=== PATIENT | female | born 1960 | race Caucasian/White ===

== ENCOUNTER → 2024-02-23 15:57 | Outpatient (REF) | payer OTHER, SELFPAY | LOC: RAD 15:57 | PROVIDERS: ATTENDING PHYSICIAN Surgery | DX: N20.0 Calculus of kidney (principal) | CPT/HCPCS: 76775 ==

== ENCOUNTER 2024-08-15 17:05 | Inpatient (IN) | payer OTHER, SELFPAY ==
[2024-08-15] VITALS (16 sets, daily range): BP systolic 107–142; BP diastolic 43–67; BMI 35.4; BMI 35.1
[2024-08-15 12:37] LABS: Urine Albumin 3+ (Neg - Trace); Urine Bilirubin 1+ (Negative); Urine Character Clear (Clear); Urine Color Yellow; Urine Glucose Negative (Negative); Urine Ketone Negative (Negative); Urine Leukocyte 3+ (Negative); Urine Nitrite Negative (Negative); Urine Occult Blood 3+ (Negative); Urine Specific Gravity 1.015 (<1.030); Urine Urobilinogen 2+ (Neg - 1+)
[2024-08-15 13:18] LABS: Urine Bacteria Moderate (Negative); Urine Red Blood Cell 0-2 /HPF (0-2); Urine Squamous Cell 21-25 /LPF (Few); Urine White Cell 50-60 /HPF (0-5)
--- NOTE | 2024-08-15 14:03 | ED.GENMED ---
History of Present Illness
General
Chief Complaint: Fever
Source: patient
Exam Limitations: none
Time Seen by Provider: 08/15/24 13:07
Nursing documentation reviewed up to this point in time: agreed with
History of Present Illness
History of Present Illness:
Patient is a 64-year-old female who presents to the ER for evaluation. Patient had discomfort with urination starting last week and self medicated with Bactrim. She does have a history of kidney stones and was doing a 24-hour urine recently
ordered by . Patient reports over the weekend however since Thursday and Thursday she has been having nausea and vomiting and has not been able to tolerate water. She has had a fever. She took Tylenol yesterday but was unable to take
anything today.
She is unsure if she is emptying her bladder but does complain abdominal bloating.
Review of Systems
Review of Systems
Allergies reviewed?: Yes
All Other Systems: ROS reviewed and negative except as documented in HPI and ROS
Constitutional: Reports fever, fatigue and chills
EENT: Reports no symptoms
Respiratory: Reports no symptoms; Denies cough or trouble breathing
Cardiac: Reports no symptoms
ABD/GI: Reports abdominal pain, nausea and vomiting; Denies diarrhea
: Reports dysuria and urgency; Denies flank pain
Musculoskeletal: Reports no symptoms
Skin: Reports no symptoms
Neurological: Reports no symptoms
Psychiatric: Reports no symptoms
Phy Exam
General Physical Exam
General Presentation: no apparent distress
General age: appears stated age
General Skin: warm and dry
General Habitus: normal
General Mental: alert
General Hydration: dry mucous membranes
Cardiovascular Exam
Cardiovascular Exam: regular rate/rhythm, no murmur and normal peripheral pulses
Pulmonary Exam
Pulmonary Exam: lungs clear and no respiratory distress
Sepsis
Sepsis Screening
Sepsis Assessment: Sepsis Ruled Out
Sepsis Screen
Sepsis Screen: Sepsis Ruled Out
Date: 08/15/24
Time: 18:30
Course
Orders/Labs/Results
Orders:
Orders
08/15/24 12:15
Urinalysis Reflex To Culture Urgent
Date Specimen was Collected: 08/15/24
Time Specimen was Collected: 12:13
Urine Microscopic Reflex Cult Urgent
Urine Culture Urgent
DANY Source: U
Specimen Description:
Date Specimen was Collected: 08/15/24
Time Specimen was Collected: 12:13
08/15/24 13:03
CT Abd/pel Without Iv Or Oral Urgent
Comment:
Reason For Exam: hematuria fever
08/15/24 14:00
COVID-19 Antigen Urgent
Source: Nasal Swab
Complete Blood Count/With Diff Urgent
Comprehensive Metabolic Panel Urgent
Blood Culture Q30M
DANY Source: Blood/Venous
Specimen Description:
Influenza A+B Rapid Molecular Urgent
DANY Source: Nasal Swab
Specimen Description:
08/15/24 14:05
0.9% Sodium Chloride 1000 ml [Nss] 1,000 ml IV BOLUS
Ondansetron Injectable [Zofran] 4 mg IV NOW STA
08/15/24 14:06
Lactic Acid Q4H
Comment: CANCEL 2nd LACTIC ACID IF 1st LACTIC ACID IS LESS THAN 2
08/15/24 14:21
Blood Culture Q30M
DANY Source: Blood/Venous
Specimen Description:
08/15/24 14:30
Acetaminophen [Tylenol] 650 mg PO NOW STA
Ketorolac [Toradol] 15 mg IV NOW STA
08/15/24 Dinner
Cholesterol Lowering
At Your Request: Full Participation
Does patient need a safe tray?: No
Cholesterol Lowering: Sodium, 2 Gram
08/15/24 15:45
CefTRIAXone [Rocephin] 1,000 mg IV NOW STA
08/15/24 16:06
0.9% Sodium Chloride 1000 ml [Nss] 1,000 ml IV BOLUS
08/15/24 16:52
Admit/Transfer Patient As Directed
Co-Sign Provider:
Level of Care: Inpatient admission
Assign to:: Medical/Surgical
Physician / Group: Ted Pantoja
Diagnosis: complicated urinary tract infection
Reason for Hospitalization: complicated urinary tract infection
Expected length of stay greater than two midnights?: Yes
ELOS- Estimated Length of Stay in days: 3
I certify the patient meets the requirements for IP care: Yes
PRN Pain Medication Management As Directed
May give lesser potent ordered pain med per pt: Yes
preference::
Protocol:: Medication orders for pain may be administered in a
manner that supports deferring to patient preference
when the pt is:
- Requesting an ordered lesser potent pain medication.
Least to most potent pain medications are defined
as: acetaminophen < NSAID < tramadol < opioids
(morphine, oxycodone, hydromorphone).
- Requesting a lesser dose of the same medication IF
ORDERED.
- Requesting a less intrusive route of administration
if both routes are prescribed by the provider (PO <
IV).
08/15/24 16:54
Code Status As Directed
Resuscitation Status: Full Code
Abnormal Lab Results
08/15/24 08/15/24
12:15 14:00
WBC 14.1 H 10^3/uL
(4.8-10.8)
RBC 4.07 L 10^6/uL
(4.20-5.40)
MCH 32.4 H pg
(27.0-31.0)
RDW 14.6 H %
(11.5-14.5)
MPV 10.6 H fL
(7.4-10.4)
Abs Immat Gran (auto) 0.1 H 10^3/uL
(0-0.05)
Absolute Neuts (auto) 12.0 H 10^3/uL
(1.4-6.5)
Absolute Lymphs (auto) 0.7 L 10^3/uL
(1.2-3.4)
Absolute Monos (auto) 1.3 H 10^3/uL
(0.1-0.6)
Immature Gran % 0.8 H %
(0-0.5)
Neutrophils % 84.6 H %
(42.2-75.2)
Lymphocytes % 5.0 L %
(20.5-51.1)
Potassium 3.3 L mmol/L
(3.5-5.1)
Glucose 154 H mg/dl
(70-99)
Total Bilirubin 1.7 H mg/dl
(0.2-1.3)
AST 37 H U/L
(14-36)
ALT 39 H U/L
(0-35)
Ur Occult Blood Reflex 3+ A
(Negative)
Urine Bilirubin 1+ A
(Negative)
Urine Urobilinogen 2+ A
(Neg - 1+)
Leukocyte Esterase Rfl 3+ A
(Negative)
Urine WBC (Reflex) 50-60 A /HPF
(0-5)
Urine Bacteria (Reflex) Moderate A
(Negative)
Urine Albumin (Reflex) 3+ A
(Neg - Trace)
08/15/24 14:00
08/15/24 14:00
Vital Signs
Initial and Last Documented VS:
Initial Vital Signs
Temp Pulse Resp BP Pulse Ox
101.6 F H 99 22 138/67 98
08/15/24 12:02 08/15/24 12:02 08/15/24 12:02 08/15/24 12:02 08/15/24 12:02
Last Documented Vital Signs
Temp Pulse Resp BP Pulse Ox
101.6 F H 84 16 120/54 92
08/15/24 12:02 08/15/24 15:58 08/15/24 15:58 08/15/24 18:00 08/15/24 18:13
Coding Team Lead consulted with Physician
Coding Team Lead consulted with physician?: Yes
Name of Physician Consulted: Wendy
MDM/Problems Addressed
Differential Diagnosis Includes:
Not limited to renal colic, UTI, pyelonephritis
MDM/Problems Addressed:
Patient is a 64-year-old female who presented with urinary symptoms a week ago and self medicated with Bactrim however presents with fevers and vomiting for the past several days. She was found to be febrile at one 101.6 with an elevated white
count of 14,000 and infected urine. Urine shows 50�60 white blood cells with 3+ leuks.
CT neg for acute obstructing stone. Patient was given fluids here in the ER will admit for pyelonephritis
Chronic conditions affecting care:
History of hypertension hyperlipidemia renal stones
*Radiology
Radiology exam reviewed: radiology read reviewed (Bilateral nonobstructing renal calculi no hydronephrosis)
*Critical Care Note
Total Time (30-74mins, 75-104mins- exclusive of procedures): Not Applicable
ED Attending Note
-
Portions of this chart may have been created with voice recognition software.� Occasional wrong word or��sound alike� substitutions may have occurred due to the inherent limitations of voice recognition software.
Discharge Plan
Departure
Patient Disposition: Admit
Date of Disposition: 08/15/24
Time of Disposition: 15:55
Admit to: Med/Surg
Admit to doctor: hospitalist
Presentation/result/management discussed w/ accepting MD/DO: Hospitalist
Patient with high blood pressure during this ER visit?: Yes
Condition: Fair
Covid-19: Not Applicable
Discharge Problem:
Pyelonephritis
Interventions
Interventions:
*Risk Screen - Suicide Last Done: 08/15/24 12:02
*General Assessment Last Done: 08/15/24 12:02
*Neglect/Abuse Screening Last Done: 08/15/24 12:02
*ED- Fall Risk Assessment Last Done: 08/15/24 14:31
*ED COVID-19 Vaccine History Last Done: 08/15/24 14:03
ED- Neurological Assessment Last Done: 08/15/24 14:03
ED-Skin Assessment Last Done: 08/15/24 14:03
[2024-08-15] MEDS: NSS 1000 IV ×3 (14:12→21:46)
[2024-08-15] MEDS: ZOFRAN 4 MG IV ×2 (14:12→19:22)
[2024-08-15 14:19] LABS: ALT (SGPT) 39 U/L (0-35); AST (SGOT) 37 U/L (14-36); Albumin 4.4 g/dl (3.5-5.0); Alkaline Phosphatase 104 U/L (38-126); Blood Urea Nitrogen 17 mg/dl (7-17); Calcium 9.1 mg/dl (8.4-10.2); Carbon Dioxide 23 mmol/L (22-30); Chloride 100 mmol/L (98-107); Estimated Creatinine Clearance 75 ml/min; Glucose 154 mg/dl (70-99); Potassium 3.3 mmol/L (3.5-5.1); Sodium 137 mmol/L (135-145); Total Bilirubin 1.7 mg/dl (0.2-1.3); Total Protein 6.9 g/dl (6.3-8.2); eGFR > 60.00
[2024-08-15 14:20] LABS: Hematocrit 38.9 % (37.0-47.0); Hemoglobin 13.2 g/dL (12.0-16.0); Mean Corp Hgb Conc. 33.9 g/dL (33.0-37.0); Mean Corpuscular Hgb 32.4 pg (27.0-31.0); Mean Corpuscular Volume 95.6 fL (81.0-99.0); Mean Platelet Volume 10.6 fL (7.4-10.4); Platelet Count 174 10^3/uL (130-400); Red Blood Cell Count 4.07 10^6/uL (4.20-5.40); Red Cell Dist. Width 14.6 % (11.5-14.5); White Blood Cell Count 14.1 10^3/uL (4.8-10.8)
[2024-08-15] MEDS: TYLENOL 650 MG PO ×2 (14:35→19:22)
[2024-08-15] MEDS: TORADOL 15 MG IV (14:36)
[2024-08-15 14:45] LABS: Lactic Acid 1.5 mmol/L (0.7-2.0)
[2024-08-15 14:50] LABS: % Basophils 0.3 % (0-2); % Eosinophils 0.2 % (0-6); % Immature Granulocytes 0.8 % (0-0.5); % Monocytes 9.1 % (1.7-9.3); % Neutrophils 84.6 % (42.2-75.2); Absolute Immature Granulocytes 0.1 10^3/uL (0-0.05); Absolute Lymphocytes 0.7 10^3/uL (1.2-3.4); Absolute Monocytes 1.3 10^3/uL (0.1-0.6); Nucleated Red Blood Cells % 0 %
[2024-08-15 15:00] LABS: COVID-19 Antigen Negative (Negative)
[2024-08-15] MEDS: ROCEPHIN 1000 MG IV (15:55)
--- NOTE | 2024-08-15 16:16 | HPS.HSE ---
Family Physician
-
Family Physician: * NONE
Chief Complaint
-
dysuria
History of Present Illness
Patient is a 64-year-old female with past medical history significant for essential hypertension, hyperlipidemia, hyperparathyroidism, anxiety/depression and Hx renal calculi who presented to [facility] ED for evaluation of dysuria. Patient
reports dysuria started approximately a week ago, she had bactrim at home from previous UTI and was using it to treat her symptoms. By Thursday she had a fever with rigors and started with nausea and vomiting on Thursday. Since then she reports that
it has not gotten better and is having a difficult time holding anything down including medications.
Medical History
Past Medical History
Past Medical History: Reports Other
Additional Past Medical History:
essential hypertension
hyperlipidemia
hyperparathyroidism
anxiety/depression
Hx renal calculi
Past Surgical History: Reports Other
Additional Past Surgical History:
parathyroidectomy (2010)
uterine fibroids (2001)
hysterectomy (2001)
Social History
Tobacco: Non-smoker
Alcohol: Occasional (a couple glasses of wine a week )
Drug: None
Personal:
Living: With Family
Employment: Employed
Family History
Family History: Not pertinent
Allergies / Home Medications
Allergies reflects when Allergies were last updated in [facility].
Home Medications with original date entered in [facility]
Allergy/Medication List:
Allergies
Allergy/AdvReac Type Severity Reaction Status Date / Time
codeine Allergy Intermediate Itching Verified 08/15/24 12:02
Home Medications
amlodipine 5 mg tablet 5 mg PO DAILY 08/15/24
aspirin 81 mg tablet,delayed release 81 mg PO DAILY 08/15/24
atorvastatin 10 mg tablet 10 mg PO DAILY 08/15/24
escitalopram oxalate 20 mg tablet 20 mg PO DAILY 08/15/24
estradiol 0.01% (0.1 mg/gram) vaginal cream 1 appful vaginal Q98H 08/15/24
sulfamethoxazole 800 mg-trimethoprim 160 mg tablet 1 tab PO DAILYPRN PRN sexual intercourse 08/15/24
valsartan 160 mg tablet 160 mg PO DAILY 08/15/24
Review of Systems
-
History Source: Patient
Constitutional: Reports Fever and Chills
: Reports Dysuria, Frequency, Difficulty Voiding and Dark Urine
Physical Exam
Vital Signs
Vital Signs
Temp Pulse Resp BP Pulse Ox
101.6 F H 84 16 108/43 92
08/15/24 12:02 08/15/24 15:58 08/15/24 15:58 08/15/24 15:58 08/15/24 15:58
Physical Exam
General: Well Developed, Well Nourished, No Apparent Distress, Comfortable, Conversant and Morbidly Obese
HEENT: NormoCephalic, Moist mucous membranes, Atraumatic, Hiller Conjunctivae, Nose Appears Normal and Ears Appear Normal
Respiratory: Clear and Non Labored Respirations
Cardiac: S1/S2 and Regular Rhythm
Breast: Deferred by me
GI: Soft, Non Tender, Non Distended and Normal Bowel Sounds; No Organomegaly
Rectal: Deferred by Provider
Genito-urinary: Costovertebral angle tend
Musculoskeletal: No Clubbing, No Cyanosis and No Edema
Skin: No Rash
Neuro: Awake, Alert, AO x 3 and Nonfocal/grossly intact
Psych: Calm and Intact Judgment/Insight
Laboratory Results
-
08/15/24 14:00
08/15/24 14:00
Laboratory Results
Lactic Acid Cancelled 08/15/24 18:15
Total Bilirubin 1.7 mg/dl (0.2-1.3) H 08/15/24 14:00
AST 37 U/L (14-36) H 08/15/24 14:00
ALT 39 U/L (0-35) H 08/15/24 14:00
Alkaline Phosphatase 104 U/L (38-126) 08/15/24 14:00
Data Reviewed
-
CT Scan: Report Reviewed by me (Abd/Pel: 1. There are bilateral nonobstructing renal calculi 2. There is a left renal cyst 3. There is hepatomegaly with fatty infiltration 4. There is diverticulosis but no evidence of diverticulitis 5. 2 mm
pulmonary nodule on the right is unchanged, likely benign. 6. Linear band in the left lower)
Lab Data: Labs Reviewed by me (WBC 14.1, Neut 84.6, K+ 3.3)
Impression/Plan
-
IMPRESSION/PLAN:
#urinary tract infection suspected complicated
WBC 14.1, Neut 84.6, K+ 3.3
UA: indicative of UTI
Urine Cx: pending
Abd/Pelv CT: 1. There are bilateral nonobstructing renal calculi
2. There is a left renal cyst
3. There is hepatomegaly with fatty infiltration
4. There is diverticulosis but no evidence of diverticulitis
5. 2 mm pulmonary nodule on the right is unchanged, likely benign.
6. Linear band in the left lower lobe is likely scarring
- Admit to med/surg
- IV antibiotics
- NSS 100cc/hr
- supportive care
#hyperparathyroidism
s/p parathyroidectomy
#essential hypertension
- hold amlodipine and valsartan in setting of soft BP and risk for sepsis
#hyperlipidemia
- continue aspirin and atorvastatin
#anxiety/depression
- continue escitalopram
#Hx renal calculi
Code status: full code
DVT prophylaxis: Lovenox sq
--- NOTE | 2024-08-15 16:41 | W.PN.UPDATE ---
Update Note
Progress Note Update
This note serves as an addendum to the H&P by vice president business development ANDREW
Moira Isidro
HPI
64F Obesity , Prior HX Nephrolithiasis and stone extraction, HLD, HTN see at ER -year-old female who presents to the ER - discomfort with urination starting last week and self medicated with Bactrim.
- over the weekend she has been having nausea and vomiting and has not been able to tolerate water.
- took Tylenol yesterday
- report abdominal bloating.
PHX: see above
Reviewed VS:
VS
08/15/24
12:02 08/15/24
15:58
Temp 101.6 F H
Pulse 84
Blood pressure 108/43
PE
Gen: obese , profuse sweating , flushed face
HEENT: anicteric
Neck: supple
Lungs: CTA
Cor: RRR S1 S2
Abdomen: soft , obese , NEG b/l CVA tenderness
CAT DOG OR OTHER PET GROOMER: AAO3 , NFND
MS: no edema
Psych: appropriates Labs
08/15/24 08/15/24 08/15/24
12:15 14:00 14:06
WBC 14.1 H
Potassium 3.3 L
BUN 17
Creatinine 1.0
eGFR > 60.00
Lactic Acid 1.5
Total Bilirubin 1.7 H
AST 37 H
ALT 39 H
Leukocyte Esterase Rfl 3+ A
Urine WBC (Reflex) 50-60 A
SARS-CoV-[address] Abd/pel Without Iv Or Oral
1. There are bilateral nonobstructing renal calculi
2. There is a left renal cyst
3. There is hepatomegaly with fatty infiltration
4. There is diverticulosis but no evidence of diverticulitis
5. 2 mm pulmonary nodule on the right is unchanged, likely benign.
6. Linear band in the left lower lobe is likely scarring
NO PRIOR hospitalist admission:
ASSESSMENT & PLAN
Suspect complicated UTI with early SIRS picture
Mild hypotension
At risk for sepsis
Bilateral nonobstructing renal calculi
Prior HX Nephrolithiasis and stone extraction
- BCx sent
- Pending UCx
- agree with IV CFTZ
- IV NS @ 100/H
- Tylenol PRN for T > 101.2
- Anti emetics PRN
Hypokalemia
- PO KCL 40 x 1
Fatty liver due to obesity
HLD
- cont MISSILE TRACKING TECHNICIAN Atorvastatin
- Trend LFTS
Benign HTN
- Hold Amlodipine and Valsartan due to hypotension
DVT Px: LMWH
Full code
IP MS
[2024-08-15] MEDS: KCL 40 MEQ PO (18:05)
[2024-08-15] MEDS: TYLENOL PO (19:09)
[2024-08-15] MEDS: LOVENOX 40 MG SC (21:40)
[2024-08-15] MEDS: TORADOL 10 MG IV (22:23)
--- NOTE | 2024-08-15 23:02 | PTCARENOTE ---
Pt arrived from ED via stretcher and ambulated to the bed. Pt is AAOx3, VSS, and complains of 6/10 lower abd pain. RN given IV Toradol. Pt is oriented to room with the call connors within reach.
[2024-08-16] MEDS: ZOFRAN 4 MG IV ×3 (02:39→19:33)
[2024-08-16] MEDS: TYLENOL 650 MG PO ×3 (02:40→15:30)
[2024-08-16] MEDS: TORADOL 10 MG IV ×3 (05:01→20:14)
[2024-08-16 06:59] VITALS: BP 121/68
[2024-08-16 08:23] LABS: Hematocrit 33.7 % (37.0-47.0); Hemoglobin 11.5 g/dL (12.0-16.0); Mean Corp Hgb Conc. 34.1 g/dL (33.0-37.0); Mean Corpuscular Hgb 32.1 pg (27.0-31.0); Mean Corpuscular Volume 94.1 fL (81.0-99.0); Mean Platelet Volume 10.9 fL (7.4-10.4); Platelet Count 149 10^3/uL (130-400); Red Blood Cell Count 3.58 10^6/uL (4.20-5.40); Red Cell Dist. Width 14.6 % (11.5-14.5); White Blood Cell Count 9.2 10^3/uL (4.8-10.8)
[2024-08-16 08:39] LABS: Blood Urea Nitrogen 15 mg/dl (7-17); Calcium 8.4 mg/dl (8.4-10.2); Carbon Dioxide 21 mmol/L (22-30); Chloride 108 mmol/L (98-107); Estimated Creatinine Clearance 93 ml/min; Glucose 126 mg/dl (70-99); Potassium 3.3 mmol/L (3.5-5.1); Sodium 140 mmol/L (135-145); eGFR > 60.00
--- NOTE | 2024-08-16 08:40 | W.PN.HOSP.TC ---
Today's Communication/Plan
-
see A/P
Assessment / Plan
Assessment / Plan
HPI: 64-year-old female with past medical history significant for essential hypertension, hyperlipidemia, hyperparathyroidism, anxiety/depression and Hx renal calculi who presented to [facility] for evaluation of dysuria.
Patient reports dysuria started approximately a week ago, she had Bactrim at home from previous UTI and was using it to treat her symptoms. She developed fever with rigors and nausea with vomiting.
CT AP:
1. There are bilateral nonobstructing renal calculi
2. There is a left renal cyst
3. There is hepatomegaly with fatty infiltration
4. There is diverticulosis but no evidence of diverticulitis
5. 2 mm pulmonary nodule on the right is unchanged, likely benign.
6. Linear band in the left lower lobe is likely scarring
A/P:
# sepsis POA 2/2 urinary tract infection with bacteremia
follow urine culture, blood culture
Prelim blood culture positive for GNR
cont IV antibiotic Ceftriaxone
supportive care
# Hypokalemia
replete
Check Mag level
# hyperparathyroidism s/p parathyroidectomy
# essential hypertension
hold amlodipine and valsartan in setting of soft BP and risk for sepsis
BP stable currently
# hyperlipidemia
continue aspirin and atorvastatin
# anxiety/depression
continue escitalopram
# Hx renal calculi
Code status: full code
DVT prophylaxis: Lovenox sq
updated on the phone
Anticipated Discharge: 24 - 48 hours
Subjective/Interval History
-
Date of Service: August 16, 2024
Objective Data
-
Labs:
Laboratory Results
08/16/24
07:46
WBC 9.2
Hgb 11.5 L
Hct 33.7 L
Plt Count 149
Sodium 140
Potassium 3.3 L
Chloride 108 H
Carbon Dioxide 21 L
BUN 15
Creatinine 0.8
Glucose 126 H
Calcium 8.4
Vital Signs:
Vital Signs
Temp Pulse Resp BP Pulse Ox
37.3 C 80 18 121/64 95
08/16/24 04:07 08/15/24 23:02 08/15/24 23:02 08/15/24 23:02 08/15/24 23:02
I&O
08/15/24 08/16/24 08/17/24
06:59 06:59 06:59
Intake Total 960 / 960
Balance 960 / 960
Review of Systems
-
History Source: Patient
All other systems: Reviewed and negative
Physical Exam
-
General: Well Developed, Well Nourished, No Apparent Distress, Comfortable and Conversant; Negative Respiratory Distress
HEENT: Normocephalic, Atraumatic, Nose Appears Normal and Ears Appear Normal; Negative Oxygen
Respiratory: Clear to Auscultation and Non Labored Respirations; Negative Accessory Resp Muscle Use
Cardiac: Regular Rhythm and S1/S2
GI: Soft, Nontender, Nondistended and Normal Bowel Sounds
Skin: Warm and Dry
Neuro: Awake, Alert, Oriented and AO x 3
Psych: Calm and Intact Judgement/Insight
Data Reviewed
-
CT Scan: Report Reviewed by me
Labs: Labs Reviewed by me
[2024-08-16] MEDS: LIPITOR 10 MG PO (09:27)
[2024-08-16] MEDS: LEXAPRO 20 MG PO (09:27)
[2024-08-16] MEDS: ASPIR LOW (ENTERIC COATED) 81 MG PO (09:27)
[2024-08-16] MEDS: NSS IV (09:27)
[2024-08-16] MEDS: KCL 40 MEQ PO (09:29)
[2024-08-16] MEDS: FLUSH (NSS) 1 FLUSH IV ×4 (13:17→15:31)
[2024-08-16] MEDS: COMPAZINE 5 MG IV ×2 (14:38→20:13)
[2024-08-16 15:28] LABS: Magnesium 1.7 mg/dl (1.6-2.3)
[2024-08-16] MEDS: ROCEPHIN 1000 MG IV (15:30)
[2024-08-16] MEDS: STERILE WATER FOR INJECTION 10 ML IV (15:31)
[2024-08-16 15:59] VITALS: BP 107/55
--- NOTE | 2024-08-16 16:40 | PTCARENOTE ---
Pt AAO x3, HENDRICKSON well, OOB to BR; nathan well. VSS. On nc 2 lpm-pulse ox 94%; neri with (+) slight BONDS; denies SOB. Abd obese, soft, nathan PO; appetite fair. Voids dark monse urine in BR. Temp 102.6 PO; Tylenol PO given; will continue to monitor. face
flushed at times. Resting in bed at present.
--- NOTE | 2024-08-16 16:46 | CM ---
Alert awake oriented patient who lives with her Harish in a one story home with 0 steps to enter.She is independent in all ADLs.NO adaptive devices.Pt has new oxygen in hospital Watch for home O2 needs
No VN in past . No SNF hx
Pharmacy [facility]
PCP No PCP Pt will try to use her PCP
PLAN Home with no needs
[2024-08-16] MEDS: LOVENOX 40 MG SC (17:36)
[2024-08-16] MEDS: TYLENOL PO (19:33)
[2024-08-16] MEDS: OFIRMEV 100 IV (20:12)
[2024-08-16 23:50] VITALS: BP 119/70
[2024-08-17] MEDS: OFIRMEV 100 IV ×2 (01:39→16:27)
[2024-08-17] MEDS: TORADOL 10 MG IV ×3 (02:02→15:42)
[2024-08-17] MEDS: ZOFRAN 4 MG IV ×3 (02:04→15:16)
[2024-08-17 07:30] VITALS: BP 146/81
[2024-08-17 08:18] LABS: Hematocrit 33.8 % (37.0-47.0); Hemoglobin 11.7 g/dL (12.0-16.0); Mean Corp Hgb Conc. 34.6 g/dL (33.0-37.0); Mean Corpuscular Hgb 32.2 pg (27.0-31.0); Mean Corpuscular Volume 93.1 fL (81.0-99.0); Mean Platelet Volume 10.9 fL (7.4-10.4); Platelet Count 158 10^3/uL (130-400); Red Blood Cell Count 3.63 10^6/uL (4.20-5.40); Red Cell Dist. Width 14.6 % (11.5-14.5); White Blood Cell Count 8.1 10^3/uL (4.8-10.8)
[2024-08-17] MEDS: LIPITOR 10 MG PO (08:49)
[2024-08-17] MEDS: TYLENOL 650 MG PO (08:49)
[2024-08-17] MEDS: ASPIR LOW (ENTERIC COATED) 81 MG PO (08:49)
[2024-08-17] MEDS: LEXAPRO 20 MG PO (08:49)
[2024-08-17 08:56] LABS: ALT (SGPT) 58 U/L (0-35); AST (SGOT) 62 U/L (14-36); Albumin 3.5 g/dl (3.5-5.0); Alkaline Phosphatase 142 U/L (38-126); Blood Urea Nitrogen 10 mg/dl (7-17); Calcium 8.5 mg/dl (8.4-10.2); Carbon Dioxide 24 mmol/L (22-30); Chloride 105 mmol/L (98-107); Direct Bilirubin 0.7 mg/dl (0.0-0.4); Estimated Creatinine Clearance 124 ml/min; Glucose 131 mg/dl (70-99); Magnesium 1.7 mg/dl (1.6-2.3); Potassium 3.6 mmol/L (3.5-5.1); Sodium 139 mmol/L (135-145); Total Bilirubin 1.3 mg/dl (0.2-1.3); Total Protein 5.9 g/dl (6.3-8.2); eGFR > 60.00
[2024-08-17] MEDS: FLUSH (NSS) 1 FLUSH IV ×4 (08:58→15:42)
--- NOTE | 2024-08-17 10:34 | W.PN.HOSP.TC ---
Today's Communication/Plan
-
see A/P
Assessment / Plan
Assessment / Plan
HPI: 64-year-old female with past medical history significant for essential hypertension, hyperlipidemia, hyperparathyroidism, anxiety/depression and Hx renal calculi who presented to [facility] for evaluation of dysuria.
Patient reports dysuria started approximately a week ago, she had Bactrim at home from previous UTI and was using it to treat her symptoms. She developed fever with rigors and nausea with vomiting.
CT AP:
1. There are bilateral nonobstructing renal calculi
2. There is a left renal cyst
3. There is hepatomegaly with fatty infiltration
4. There is diverticulosis but no evidence of diverticulitis
5. 2 mm pulmonary nodule on the right is unchanged, likely benign.
6. Linear band in the left lower lobe is likely scarring
A/P:
# sepsis POA 06/19 E coli urinary tract infection with bacteremia
urine culture grew E coli, sensitivity reviewed, sensitive to ceftriaxone
blood culture clearing from 08/15
cont IV antibiotic Ceftriaxone
Cont supportive care
Can cont Tylenol ATC and PRN
# Hypokalemia
repleted
# hyperparathyroidism s/p parathyroidectomy
# essential hypertension
Start Coreg (new med) with concurrent sinus tachycardia- informed pt
hold HAND POLISHER amlodipine and valsartan
Monitor BP
# hyperlipidemia
continue aspirin and atorvastatin
# anxiety/depression
continue escitalopram
# Hx renal calculi
Pt follows with uro outpt
Code status: full code
DVT prophylaxis: Lovenox sq
total time spent 51 min
Anticipated Discharge: 24 - 48 hours
Subjective/Interval History
-
Date of Service: August 17, 2024
Objective Data
-
Labs:
Laboratory Results
08/17/24
07:45
WBC 8.1
Hgb 11.7 L
Hct 33.8 L
Plt Count 158
Sodium 139
Potassium 3.6
Chloride 105
Carbon Dioxide 24
BUN 10
Creatinine 0.6
Glucose 131 H
Calcium 8.5
Total Bilirubin 1.3
AST 62 H
ALT 58 H
Alkaline Phosphatase 142 H
Vital Signs:
Vital Signs
Temp Pulse Resp BP Pulse Ox
37.7 C 128 20 146/81 93
08/17/24 07:30 08/17/24 08:53 08/17/24 07:30 08/17/24 07:30 08/17/24 08:42
I&O
08/16/24 08/17/24 08/18/24
06:59 06:59 06:59
Intake Total 960 / 960 1940 / 1940
Output Total 300 / 300
Balance 960 / 960 1640 / 1640
Review of Systems
-
History Source: Patient
Abdomen/GI: Reports Nausea
Physical Exam
-
General: Well Developed, Well Nourished, No Apparent Distress, Comfortable and Conversant; Negative Respiratory Distress
HEENT: Normocephalic, Atraumatic, Nose Appears Normal and Ears Appear Normal; Negative Oxygen
Respiratory: Clear to Auscultation and Non Labored Respirations; Negative Accessory Resp Muscle Use
Cardiac: Regular Rhythm and S1/S2
GI: Soft, Nontender, Nondistended and Normal Bowel Sounds
Skin: Warm and Dry
Neuro: Awake, Alert, Oriented and AO x 3
Psych: Calm and Intact Judgement/Insight
Data Reviewed
-
CT Scan: Report Reviewed by me
Labs: Labs Reviewed by me
[2024-08-17] MEDS: COREG 3.125 MG PO ×2 (13:01→20:18)
[2024-08-17 15:30] VITALS: BP 153/85
[2024-08-17] MEDS: SENOKOT-S 1 TABLET PO (15:40)
[2024-08-17] MEDS: MIRALAX PO (15:41)
[2024-08-17] MEDS: STERILE WATER FOR INJECTION 10 ML IV ×2 (15:41→16:29)
[2024-08-17] MEDS: ROCEPHIN 1000 MG IV ×2 (15:41→16:29)
--- NOTE | 2024-08-17 16:23 | PTCARENOTE ---
Pt AAO X3, HENDRICKSON; OOB in room/to BR; nathan well; tires easily. VSS. On nc 2 lpm-pulse ox 95%, pt with (+) slight BONDS; refuses offers to try weaning O2 nc. Abd obese, soft, nathan liquids; refusing meal trays due to occ nausea. Voiding in BR without
difficulty. Temp currently 102.5 PO; Dr. Abarca aware; Iv Offirmev to be given x 1 dose. Resting in bed at present. Will continue to monitor.
[2024-08-17] MEDS: LOVENOX 40 MG SC (18:11)
[2024-08-17] MEDS: SENOKOT-S PO (20:17)
[2024-08-17 23:30] VITALS: BP 111/65
[2024-08-18] VITALS (17 sets, daily range): BP systolic 48–145; BP diastolic 20–126
[2024-08-18] MEDS: TYLENOL 650 MG PO ×4 (00:21→22:09)
[2024-08-18] MEDS: TORADOL 10 MG IV (01:52)
[2024-08-18] MEDS: CARDIZEM 5 MG IV (02:39)
[2024-08-18] MEDS: CARDIZEM 125 IV ×3 (02:42→22:09)
--- NOTE | 2024-08-18 02:45 | PTCARENOTE ---
Addendum entered by Shyla Madden RN 08/18/24 07:01:
Patient's HR continuing to sustain 130-140s, 150-160s at time with ambulation. Afib on telemetry. Patient is asymptomatic, denies palpitations. BP 134/93, patient reports feeling better. INSTRUMENT SETTER made aware, order for cardizem gtt to be changed to
10mg/hr. Cardiology consult added for morning.
Original Note:
Patient's heart rate tachycardic up to 140s, other VSS. Patient states she feels a 'fluttering in her heart'. EKG completed showing afib with RVR. INSTRUMENT SETTER made aware, orders to transfer patient to tele, coreg placed on hold. On telemetry patient's HR
sustaining 130s-140s. Stat IV cardizem 5mg ordered and given and cardizem gtt started at 5mg/hr per [employer] SKI MAKER order. Plan of care ongoing.
--- NOTE | 2024-08-18 05:28 | W.PN.UPDATE ---
Update Note
Progress Note Update
0230 RN reports pt with elevated HR to 130s and pt felt 'fluttering' in chest. Reviewing chart pt HR was elevated all of 08/17/24 thought to possibly due to fevers. Coreg started yesterday. This does not seem to have had any affects on her
tachycardia.
PT had no EKG on file. RN did EKG and PT found to have afib with RVR (no hx). Likely brought on by her illness.
BP somewhat soft (sbp low teens). Will give 5mg iv cardizem now and start cardizem drip.
[2024-08-18 05:55] LABS: Hematocrit 35.4 % (37.0-47.0); Hemoglobin 12.1 g/dL (12.0-16.0); Mean Corp Hgb Conc. 34.2 g/dL (33.0-37.0); Mean Corpuscular Hgb 31.8 pg (27.0-31.0); Mean Corpuscular Volume 92.9 fL (81.0-99.0); Mean Platelet Volume 10.8 fL (7.4-10.4); Platelet Count 175 10^3/uL (130-400); Red Blood Cell Count 3.81 10^6/uL (4.20-5.40); Red Cell Dist. Width 14.7 % (11.5-14.5)
[2024-08-18 06:23] LABS: ALT (SGPT) 74 U/L (0-35); AST (SGOT) 86 U/L (14-36); Albumin 3.4 g/dl (3.5-5.0); Alkaline Phosphatase 159 U/L (38-126); Blood Urea Nitrogen 14 mg/dl (7-17); Calcium 8.9 mg/dl (8.4-10.2); Carbon Dioxide 22 mmol/L (22-30); Chloride 103 mmol/L (98-107); Direct Bilirubin 0.8 mg/dl (0.0-0.4); Estimated Creatinine Clearance 124 ml/min; Glucose 111 mg/dl (70-99); Magnesium 1.8 mg/dl (1.6-2.3); Potassium 3.2 mmol/L (3.5-5.1); Sodium 138 mmol/L (135-145); Total Bilirubin 1.4 mg/dl (0.2-1.3); eGFR > 60.00
[2024-08-18] MEDS: KCL 40 MEQ PO (06:46)
[2024-08-18] MEDS: ZOFRAN 4 MG IV (08:19)
[2024-08-18] MEDS: LEXAPRO 20 MG PO (08:20)
[2024-08-18] MEDS: SENOKOT-S 1 TABLET PO ×2 (08:20→20:18)
[2024-08-18] MEDS: MIRALAX PO ×2 (08:20→08:26)
[2024-08-18] MEDS: ASPIR LOW (ENTERIC COATED) 81 MG PO (08:20)
--- NOTE | 2024-08-18 08:31 | CON.CAR ---
Addendum entered and electronically signed by Kaitlin Solano DO 08/18/24 12:24:
I saw and examined the patient.
The Transit Bus Operator's note was reviewed and I agree with the note.
Comment: Patient was seen and examined with cardiac PA in IMU after transfer from [facility] this morning due to rapid atrial fibrillation in the setting of E. coli bacteremia and pyelonephritis. Patient is a 64-year-old female with a history of
hypertension, hyperlipidemia and an history of recurrent kidney stones. She had previously seen a high school counselor in [facility], Dr. Sullivan 10 years ago due to family history of coronary disease and cardiac preventative care. She states
echocardiogram and stress test at that time were reassuring and has had no recent follow-up. She follows with Dr. Jaimes, urology on a regular basis for history of recurrent kidney stones. Patient presented to ER Thursday with fevers and chills
admitted with pyelonephritis and cardiology is consulted for new rapid atrial fibrillation. She was started on IV Cardizem and IV heparin this morning with Cardizem drip currently at 15
General: Appears ill but lying flat on room air with no dyspnea. AAox3
Neck: Negative JVD
Heart: Irregularly irregular, positive S1-S2. No murmurs or rubs
Lungs: CTA b/l, negative wheezes/rales/rhonchi
Abd: Distended, decreased bowel sounds, diffusely tender, most on right lower quadrant.
Ext: Negative cyanosis/clubbing/edema
Neuro: nonfocal
Plan:
New rapid atrial fibrillation in the setting of E. coli sepsis/pyelonephritis
-Discussed atrial fibrillation diagnosis as well as acute and long-term management
-Rapid rates now on IV Cardizem. Will add Lopressor for better rate control.
-For now given ongoing infectious and abdominal issues we will plan for rate control strategy
-IV heparin with eventual transition to NOAC prior to discharge. Will stop aspirin
-Check TSH
-Check 2D echocardiogram
-If patient remains in atrial fibrillation, can discuss rhythm control strategy as an outpatient
E. coli bacteremia/sepsis with pyelonephritis
-blood cultures from 08/15/2024 positive for E. coli with blood cultures 08/16 no growth in 48 hours and blood cultures 08/17 pending.
- Other pertinent lab work: Hemoglobin 12.1, WBC initially 14.1, currently 8, BUN/creatinine 14/0.6. Potassium this morning 3.2. LFTs elevated and increasing, on admission 37, currently 86, ALT rising, on admission 39, currently 74. Total
bilirubin 1.4.
-Would consult ID. Patient is known to urology and will consider their involvement this hospitalization
-No BM since Thursday with concern for possible ileus with increasing LFTs consider further abdominal imaging
Hypertension�blood pressures currently controlled/borderline.
-Stop amlodipine while on IV Cardizem drip.
-Hold valsartan at this time and monitor blood pressure trends
History of hyperlipidemia previously on low-dose atorvastatin. Would hold atorvastatin in the setting of increasing LFTs
Original Note:
Consultation
Consultation Request
Date/Time Consultation Requested: 08/18/24 at 0548
Date/Time Consultation Performed: 08/18/24 at 0825
Requesting Provider: Dr. Abarca
Performing Provider: Dr. Solano
Reason for Consultation: Newly diagnosed Afib
Medical History
-
History of Present Illness:
Patient came to ER on Thursday with fevers and chills and was admitted with pyelonephritis and cardiology is now consulted for new Afib. Patient does not have a PCP, but has been following with Urology for recurrent nephrolithiasis and was awaiting 24
hour urine collection results last week when she started with dysuria, then chills and rigors. Patient started Bactrim she had leftover at home, but symptoms worsened and so she came to the ER Thursday and was admitted. Patient was not on tele.
Patient initially managed for pyelonephritis and sepsis, but blood cultures turned positive for E coli. Patient noted to have increased HRs into the 120s starting 08/17/24 and so Coreg 3.125 mg BID was started. Patient then had fluttering in her chest
this morning prompting ECG that showed rapid Afib which is a new diagnosis for patient. Patient saw a high school counselor in [place] 10 years ago for stress test because her father had from CHF and patient reports completing an exercise
nuclear stress test that was negative for ischemia.
PMH:
Hyperlipidemia
HTN
Past Medical History
Past Medical History: Other (in HPI)
Past Surgical History: Gynecological (hysterectomy), Tonsilectomy and Other (parathyroidectomy)
Social History
Tobacco: Non-Smoker
Alcohol: Other (1-2 drinks two to three times a week)
Drug: None
Personal:
Living: With Family
Employment: Employed
Family History
Family History: CAD (father with CABG and Afib)
Allergies / Home Medications
Allergy/AdvReac Type Severity Reaction Status Date / Time
codeine Allergy Itching Verified 08/15/24 20:34
�Medication �Instructions �Recorded �Confirmed �Type
amlodipine 5 mg tablet 5 mg PO DAILY Blood Pressure 08/15/24 08/15/24 History
aspirin 81 mg tablet,delayed 81 mg PO DAILY Blood Clot 08/15/24 08/15/24 History
release Prevention/Tx
atorvastatin 10 mg tablet 10 mg PO DAILY High Cholesterol 08/15/24 08/15/24 History
escitalopram oxalate 20 mg tablet 20 mg PO DAILY Mental 08/15/24 08/15/24 History
Health/Anxiety
estradiol 0.01% (0.1 mg/gram) 1 appful vaginal Q98H Hormonal 08/15/24 08/15/24 History
vaginal cream Agent
sulfamethoxazole 800 1 tab PO DAILYPRN PRN sexual 08/15/24 08/15/24 History
mg-trimethoprim 160 mg tablet intercourse
valsartan 160 mg tablet 160 mg PO DAILY Blood Pressure 08/15/24 08/15/24 History
Review of Systems
-
History Source: Patient
All other systems: Negative unless noted
Physical Exam
Vital Signs
Temp Pulse Resp BP Pulse Ox
98.7 F 130 20 139/75 92
08/18/24 07:40 08/18/24 07:40 08/18/24 07:40 08/18/24 07:40 08/18/24 07:40
GEN: NAD. AAOx3
HEENT: EOMI, MMM
LUNGS: RA. CTA B/L, no wheeze
CV: Afib on tele. Irreg irreg, S1/S2, no murmur
ABD: soft, BS+, NT, ND
EXT: No clubbing, cyanosis, lesions or edema B/L
NEURO: Gross non-focal
SKIN: Warm, dry amd pink. No rash
Lab Results
08/18/24 05:40
08/18/24 05:40
Impression / Plan
-
PCP: None
Card: Saw Dr. Collins Watson at [facility]
Urology: Dr. Jaimes
Impression:
Admitted with pyelonephritis 08/15/24
Sepsis
E coli bacteremia
Newly diagnosed Afib with RVR 08/18/24
Elevated LFTs
Abdominal pain and fullness
Hyperlipidemia
HTN
Echo 08/18/24: Study pending
Plan:
-Patient came to ER on Thursday with fevers and chills and was admitted with pyelonephritis and cardiology is now consulted for new Afib. Patient does not have a PCP, but has been following with Urology for recurrent nephrolithiasis and was awaiting
24 hour urine collection results last week when she started with dysuria, then chills and rigors. Patient started Bactrim she had leftover at home, but symptoms worsened and so she came to the ER Thursday and was admitted. Patient was not on tele.
Patient initially managed for pyelonephritis and sepsis, but blood cultures turned positive for E coli. Patient noted to have increased HRs into the 120s starting 08/17/24 and so Coreg 3.125 mg BID was started. Patient then had fluttering in her chest
this morning prompting ECG that showed rapid Afib which is a new diagnosis for patient. Patient saw a high school counselor in [place] 10 years ago for stress test because her father had from CHF and patient reports completing an exercise
nuclear stress test that was negative for ischemia.
-ECG reviewed by me looks like Afib with RVR. Tele reviewed by me also looks like rapid Afib
-Conferred with patient's RN and then hospitalist attending. Patient continues with rapid Afib despite Cardizem gtt at 10 mg and gtt cannot be titrated on 4W. Hospitalist attending agreeable to transfer to IMU. I called IMU and placed transfer
orders myself. Also called patient's , Harish, to update him and explained the Afib and the transfer to IMU.
-Check echo, order placed by me
-Increase Cardizem gtt to 15 mg now, order placed by me. Will replaced Cardizem gtt with titrating order once on IMU.
-Start Heparin gtt, orders placed by me.
-No previous JACKIE eval
-Check TSH, orders placed by me
-Patient with h/o HTN and outpatient doses of amlodipine 5 mg daily and valsartan 160 mg daily on hold
-Outpatient dose os atorvastatin 10 mg daily is on hold due to elevated LFTs
-Patient with abdominal bloating and no BM since Thursday.
--- NOTE | 2024-08-18 09:12 | W.PN.HOSP.TC ---
Today's Communication/Plan
-
see A/P
Assessment / Plan
Assessment / Plan
HPI: 64-year-old female with past medical history significant for essential hypertension, hyperlipidemia, hyperparathyroidism, anxiety/depression and Hx renal calculi who presented to [facility] for evaluation of dysuria.
Patient reports dysuria started approximately a week ago, she had Bactrim at home from previous UTI and was using it to treat her symptoms. She developed fever with rigors and nausea with vomiting.
CT AP:
1. There are bilateral nonobstructing renal calculi
2. There is a left renal cyst
3. There is hepatomegaly with fatty infiltration
4. There is diverticulosis but no evidence of diverticulitis
5. 2 mm pulmonary nodule on the right is unchanged, likely benign.
6. Linear band in the left lower lobe is likely scarring
A/P:
# sepsis POA 06/19 E coli urinary tract infection with bacteremia
urine culture grew E coli, sensitivity reviewed, sensitive to ceftriaxone
blood culture cleared from 08/15
cont IV antibiotic Ceftriaxone
Cont supportive care
Can cont Tylenol
# Hypokalemia
replete PRN
# hyperparathyroidism s/p parathyroidectomy
# Paroxysmal A fib with RVR
# essential hypertension
Started Cardizem drip- upgrade to IMU
Added heparin drip
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
Monitor HR / BP
Eventual Echo
Card on board
# Increasing LFT, possible reactive transaminitis
trend LFT
cautious use of Tylenol
Hold Lipitor
Hold NSAID (can be hepatotoxic too)
Consider Abd US if LFT cont to rise
# Abd pain and head ache suspect related to A fib
Check Abd XR
Admission CT AP was unrevealing
Tylenol
# hyperlipidemia
Holding Lipitor
# anxiety/depression
continue escitalopram
# Hx renal calculi
Pt follows with uro outpt
Code status: full code
DVT prophylaxis: Lovenox sq -> heparin drip
DW RN
DW Card
updated on the phone
CC time 40 min
Anticipated Discharge: > 48 hours
Subjective/Interval History
-
Date of Service: August 18, 2024
Objective Data
-
Labs:
Laboratory Results
08/18/24
05:40
WBC 8.0
Hgb 12.1
Hct 35.4 L
Plt Count 175
Sodium 138
Potassium 3.2 L
Chloride 103
Carbon Dioxide 22
BUN 14
Creatinine 0.6
Glucose 111 H
Calcium 8.9
Total Bilirubin 1.4 H
AST 86 H
ALT 74 H
Alkaline Phosphatase 159 H
Vital Signs:
Vital Signs
Temp Pulse Resp BP Pulse Ox
37.1 C 136 20 125/83 92
08/18/24 07:40 08/18/24 08:33 08/18/24 07:40 08/18/24 08:33 08/18/24 07:40
I&O
08/17/24 08/18/24 08/19/24
06:59 06:59 06:59
Intake Total 1939 / 1660
Output Total 300 / 300
Balance 1640 / 1640 1659 / 1660
Review of Systems
-
History Source: Patient
Abdomen/GI: Reports Abdominal Pain (BL LQ mild diffuse); Denies Nausea (improving )
Physical Exam
-
General: Well Developed, Well Nourished, No Apparent Distress, Comfortable, Conversant and Obese; Negative Respiratory Distress
HEENT: Normocephalic, Atraumatic, Nose Appears Normal and Ears Appear Normal; Negative Oxygen
Respiratory: Clear to Auscultation and Non Labored Respirations; Negative Accessory Resp Muscle Use
Cardiac: Regular Rhythm and S1/S2
GI: Soft, Nontender, Nondistended and Normal Bowel Sounds
Skin: Warm and Dry
Neuro: Awake, Alert, Oriented and AO x 3
Psych: Calm and Intact Judgement/Insight
Data Reviewed
-
CT Scan: Report Reviewed by me
Labs: Labs Reviewed by me
[2024-08-18 10:04] LABS: APTT 39.3 Sec (23.4-35.0)
[2024-08-18] MEDS: PROTONIX IV 40 MG IV (10:11)
[2024-08-18] MEDS: NSS (PRESERVATIVE FREE) 10 ML IV (10:11)
[2024-08-18] MEDS: HEPARIN 25000 UNITS/250 ML IV (10:25)
--- NOTE | 2024-08-18 11:20 | PTCARENOTE ---
Received patient in rapid Afib. Heart rate 150. Patient on Cardizem gtt at 10mg/hour. Notified hospitalist. Contacted cardiology team who came to bedside to examine patient. baseline PTT drawn and resulted. Heparin gtt started at 1000 units/hour.
Zofran given for nausea and Tylenol for a headache which she rated an 8/10 on pain scale. Cardiology team called IMU charge nurse who assigned a bed. Verbal report given to CAROLINA Lawler. Transported patient to IMU and bedside report updates given to
nursing team. Patient denies SOB, chest pain or other symptoms at this time. Vital signs remain stable.
--- NOTE | 2024-08-18 11:24 | PTCARENOTE ---
Patient received from . Patient AAO. Currently on Cardizem gtt @ 10mg/min, will increase to 15mg/min based on HR of 124. Currently on 2L N/C, O2 sat mid 80's, will be increasing flow. Heparin gtt started on @ 1000units/hr, next PTT
just after 1600. Oriented to room. Call connors in reach.
--- NOTE | 2024-08-18 14:48 | CON.ID ---
Consultation
-
Date/Time Consultation Requested: 08/18/2024 1219
Date/Time Consultation Performed: 08/18/2024 1400
Requesting Provider: Dr. Abarca
Performing Provider: Dr. Ramirez
Reason for Consultation: Nephrolithiasis; complicated urinary tract infection
Chief Complaint / Past History
History of Present Illness
Pauline Marks is a 64-year-old female being evaluated at the request of Dr. Abarca in regards to pyelonephritis. History is obtained from chart review, along with patient interview.
The patient has a significant past medical history of nephrolithiasis, and presented to [facility] on 08/15 for workup of dysuria. At that time she reported that dysuria had started approximately 1 week prior to admission. She had some
Bactrim at home from a previous UTI and she started using it. Despite antibiotic therapy, she developed fevers with rigors, with associated nausea and vomiting.
She was started on empiric antibiotics (ceftriaxone). CT imaging revealed bilateral nonobstructing renal calculi. Blood cultures and urine culture obtained at the time of admission are now positive for E. coli. Infectious Diseases is asked to
comment upon further antimicrobial therapy.
Past History
Additional Past Medical History:
HTN
Dyslipidemia
Hyperparathyroidism
Anxiety/depression
Nephrolithiasis
Additional Past Surgical History:
parathyroidectomy (2010)
uterine fibroids (2001)
hysterectomy (2001)
Allergy History:
codeine Allergy (Verified 08/15/24 20:34)
Itching
Medications Reviewed: Yes
Current Antibiotics:
Ceftriaxone 2 g IV every 24 hours
Social History
Tobacco: Non-Smoker
Alcohol: Occasional
Drug: None
Employment: Employed
Family History
Family History: Not Pertinent
Review of Systems
Vital Signs
Temp Pulse Resp BP Pulse Ox
98.7 F 136 20 125/83 90
08/18/24 10:57 08/18/24 08:33 08/18/24 07:40 08/18/24 08:33 08/18/24 10:00
Physical Exam
Physical Exam
Constitutional: No Acute Distress, Comfortable and Non-toxic
Eyes: Sclera Anicteric
Cardiovascular: Irregular Rate and S1/S2; Negative S3/S4
Pulmonary: Non Labored
Gastrointestinal: Soft, Non Tender, Non Distended, No Rebound and No Guarding
Genito-Urinary: Suprapubic Tenderness; Negative Chilel or CVA Tenderness
Extremities: Negative Edema or Cyanosis
Skin: Negative Rash or Jaundice
Neurological: Awake, Alert and Oriented
Psychological: Calm
Lab / Diagnostic Study Results
08/18/24 05:40
08/18/24 05:40
Abs Immat Gran (auto) 0.1 10^3/uL (0-0.05) H 08/15/24 14:00
Absolute Neuts (auto) 12.0 10^3/uL (1.4-6.5) H 08/15/24 14:00
Absolute Lymphs (auto) 0.7 10^3/uL (1.2-3.4) L 08/15/24 14:00
Absolute Monos (auto) 1.3 10^3/uL (0.1-0.6) H 08/15/24 14:00
Absolute Basos (auto) 0.0 10^3/uL (0-0.2) 08/15/24 14:00
Immature Gran % 0.8 % (0-0.5) H 08/15/24 14:00
Neutrophils % 84.6 % (42.2-75.2) H 08/15/24 14:00
Lymphocytes % 5.0 % (20.5-51.1) L 08/15/24 14:00
Monocytes % 9.1 % (1.7-9.3) 08/15/24 14:00
Eosinophils % 0.2 % (0-6) 08/15/24 14:00
Basophils % 0.3 % (0-2) 08/15/24 14:00
Lactic Acid Cancelled 08/15/24 18:15
Ur Squamous Epith Cells /LPF (Few) 08/15/24 12:15
Microbiology Results
Micro:
08/15/24 14:21 Blood Culture - Preliminary
Blood/Venous No Growth in 72 hours- Final report to follow
08/15/24 14:00 Blood Culture - Preliminary
Blood/Venous Escherichia coli
Gram Stain - Preliminary
08/16/24 08:20 Blood Culture - Preliminary
Blood/Venous No Growth in 48 hours- Final report to follow
08/17/24 17:12 Blood Culture - Pending
Blood/Venous
08/17/24 16:46 Blood Culture - Pending
Blood/Venous
08/15/24 12:15 Urine Culture - Final
Urine Escherichia coli
08/15/24 14:00 Influenza Types A & B (DOMENICO) - Final
Nasal Swab Negative for Influenza A & B, NAAT
Negative results must be combined with clinical observations
and patient history.
Nucleic Acid Amplification test (NAAT)performed on the
[employer] platform.
Blood Culture Preliminary 08/15/24-1400
Organism 1 Escherichia coli
1. Escherichia coli
M.I.C. RX
--------- ---
Amoxicillin/Potas. Clavulanate <=8/4 S
Ampicillin >16 R
Ampicillin/Sulbactam 16/8 I
Aztreonam <=4 S
Cefazolin <=2 S
Ertapenem <=0.5 S
Ciprofloxacin <=0.25 S
Gentamicin <=2 S
Meropenem <=1 S
Piperacillin/Tazobactam <=8 S
Tetracycline >8 R
Tobramycin <=2 S
Trimethoprim/Sulfamethoxazole >2/38 R
Imaging:
08/15/2024 CT abdomen/pelvis: Bilateral nonobstructing renal calculi. Left renal cyst noted. No hydronephrosis noted. Hepatomegaly with fatty infiltration. Diverticulosis without evidence of diverticulitis. Please see full dictation for
additional detail.
Assessment / Plan
Complicated urinary tract infection secondary to E. coli
E. coli bacteremia
Nephrolithiasis
Leukocytosis; improved
Transaminitis
HTN
Dyslipidemia
Hyperparathyroidism
Anxiety/depression
Recommendations:
Continue with ceftriaxone while inpatient.
At time of discharge, transition to cefdinir 300 mg p.o. twice daily, to complete antibiotics through 08/29/2024.
Consider repeat urinalysis approximately 2 weeks following completion of antibiotics.
Patient will need outpatient Follow-Up with Urology regarding stone disease.
--- NOTE | 2024-08-18 15:39 | W.PN.UPDATE ---
Update Note
Progress Note Update
Checked on patient now that she is in 3348. Remains in Afib with RVR. Cardizem gtt increased to 15 mg. No SOB or CP. Heparin gtt running. Bedside echo just completed and prelim report is preserved EF. ID is now consulted.
[2024-08-18] MEDS: STERILE WATER FOR INJECTION 20 ML IV (15:40)
[2024-08-18] MEDS: ROCEPHIN 2000 MG IV (15:40)
[2024-08-18] MEDS: STERILE WATER FOR INJECTION IV (15:40)
[2024-08-18] MEDS: LOPRESSOR 12.5 MG PO (17:08)
[2024-08-18 17:58] LABS: APTT 39.8 Sec (23.4-35.0)
[2024-08-19] VITALS (9 sets, daily range): BP systolic 79–120; BP diastolic 34–95; BMI 35.8
[2024-08-19] MEDS: LOPRESSOR 12.5 MG PO ×3 (00:34→12:22)
--- NOTE | 2024-08-19 00:50 | PTCARENOTE ---
Patient reports left wrist IV feels warm. Upon assessment IV is slightly swollen and warm. IV flushed and pt reports pain when flushed. IV cardizem gtt stopped. IV removed. Pamela DUDLEY, called to place new IV. Pt is anxious and reports being a very
hard stick. per VAT cardizem and heparin gtt are compatible. Cardizem / Heparin gtts Y-sited.
[2024-08-19 00:52] LABS: APTT 47.4 Sec (23.4-35.0)
[2024-08-19] MEDS: HEPARIN 25000 UNITS/250 ML IV ×2 (06:11→22:12)
[2024-08-19] MEDS: CARDIZEM 125 IV ×3 (06:45→22:39)
[2024-08-19 07:01] LABS: Hematocrit 29.9 % (37.0-47.0); Hemoglobin 10.5 g/dL (12.0-16.0); Mean Corp Hgb Conc. 35.1 g/dL (33.0-37.0); Mean Corpuscular Hgb 32.5 pg (27.0-31.0); Mean Corpuscular Volume 92.6 fL (81.0-99.0); Mean Platelet Volume 10.7 fL (7.4-10.4); Platelet Count 217 10^3/uL (130-400); Red Blood Cell Count 3.23 10^6/uL (4.20-5.40); Red Cell Dist. Width 14.8 % (11.5-14.5); White Blood Cell Count 8.2 10^3/uL (4.8-10.8)
[2024-08-19 07:02] LABS: APTT 45.6 Sec (23.4-35.0)
[2024-08-19 07:14] LABS: ALT (SGPT) 75 U/L (0-35); AST (SGOT) 72 U/L (14-36); Albumin 3.2 g/dl (3.5-5.0); Alkaline Phosphatase 173 U/L (38-126); Blood Urea Nitrogen 9 mg/dl (7-17); Calcium 8.2 mg/dl (8.4-10.2); Carbon Dioxide 23 mmol/L (22-30); Chloride 104 mmol/L (98-107); Direct Bilirubin 0.7 mg/dl (0.0-0.4); Estimated Creatinine Clearance > 125 ml/min; Glucose 131 mg/dl (70-99); Magnesium 1.7 mg/dl (1.6-2.3); Potassium 3.2 mmol/L (3.5-5.1); Sodium 139 mmol/L (135-145); Total Bilirubin 1.3 mg/dl (0.2-1.3); Total Protein 5.7 g/dl (6.3-8.2); eGFR > 60.00
--- NOTE | 2024-08-19 07:52 | PTCARENOTE ---
Patient received from dish cloth inspector. Patient resting comfortably in bed. AAO, VSS aside from continued a-fib No events noted overnight. No current complaints of pain. Currently on 5L N/C, will attempt to wean as tolerated. Remains on Cardizem
gtt at 15mg/hr and on Heparin gtt at 1400 units/hr, awaiting PTT result. No testing scheduled at this time. Call connors in reach.
[2024-08-19] MEDS: NSS (PRESERVATIVE FREE) 10 ML IV (08:06)
[2024-08-19] MEDS: SENOKOT-S 1 TABLET PO ×2 (08:06→20:18)
[2024-08-19] MEDS: PROTONIX IV 40 MG IV (08:06)
[2024-08-19] MEDS: LEXAPRO 20 MG PO (08:06)
[2024-08-19] MEDS: MIRALAX 17 GRAMS PO (08:10)
[2024-08-19] MEDS: KCL 270 MEQ IV (08:10)
--- NOTE | 2024-08-19 08:38 | W.PN.HOSP.TC ---
Today's Communication/Plan
-
see A/P
Assessment / Plan
Assessment / Plan
HPI: 64-year-old female with past medical history significant for essential hypertension, hyperlipidemia, hyperparathyroidism, anxiety/depression and Hx renal calculi who presented to [facility] for evaluation of dysuria.
Patient reports dysuria started approximately a week ago, she had Bactrim at home from previous UTI and was using it to treat her symptoms. She developed fever with rigors and nausea with vomiting.
CT AP:
1. There are bilateral nonobstructing renal calculi
2. There is a left renal cyst
3. There is hepatomegaly with fatty infiltration
4. There is diverticulosis but no evidence of diverticulitis
5. 2 mm pulmonary nodule on the right is unchanged, likely benign.
6. Linear band in the left lower lobe is likely scarring
A/P:
# sepsis POA 06/19 E coli urinary tract infection with bacteremia
urine culture grew E coli, sensitivity reviewed, sensitive to ceftriaxone
blood culture cleared from 08/15
cont IV antibiotic Ceftriaxone
Cont supportive care, cont Tylenol cautiously
Appreciate ID input
# Hypokalemia
replete PRN
# hyperparathyroidism s/p parathyroidectomy
# Paroxysmal A fib with RVR
# essential hypertension
Started Cardizem drip- upgraded to IMU
Cont heparin drip
Off Coreg (new med), hold LIQUEFIER amlodipine and valsartan
Monitor HR / BP
Echo noted EF 50-55%. Normal right ventricular size and function.
Card on board. Defer cardioversion to Card
# Transaminitis LFT, suspect related to active infection
trend LFT
cautious use of Tylenol
Hold Lipitor
Hold NSAID (can be hepatotoxic too)
CT AP from admission noted fatty infiltration of liver.
# Abd pain and head ache suspect related to A fib, resolved
Admission CT AP was unrevealing
Tylenol PRN
# hyperlipidemia
Holding Lipitor
# anxiety/depression
continue escitalopram
# Hx renal calculi
Pt follows with uro outpt
discussed /curbsided urologist laboratory operations coordinator Dr Garcia, he indicated there is no need for urgent urologic intervention
Code status: full code
DVT prophylaxis: Lovenox sq -> heparin drip
DW RN
updated on the phone
total time 51 min
Anticipated Discharge: > 48 hours
Subjective/Interval History
-
Date of Service: August 19, 2024
Objective Data
-
Labs:
Laboratory Results
08/19/24 08/19/24 08/19/24
00:32 06:41 14:10
WBC 8.2
Hgb 10.5 L
Hct 29.9 L
Plt Count 217 D
APTT 47.4 H 45.6 H Pending
Sodium 139
Potassium 3.2 L
Chloride 104
Carbon Dioxide 23
BUN 9
Creatinine 0.5 L
Glucose 131 H
Calcium 8.2 L
Total Bilirubin 1.3
AST 72 H
ALT 75 H
Alkaline Phosphatase 173 H
Vital Signs:
Vital Signs
Temp Pulse Resp BP Pulse Ox
37.0 C 114 23 113/86 91
08/19/24 07:05 08/19/24 07:00 08/19/24 06:00 08/19/24 06:05 08/19/24 07:00
I&O
08/18/24 08/19/24 08/20/24
06:59 06:59 06:59
Intake Total 1660 / 1660
Balance 1660 / 1660
Review of Systems
-
History Source: Patient
All other systems: Reviewed and negative
Abdomen/GI: Denies Nausea (resolved) or Vomiting (resolved)
Physical Exam
-
General: Well Developed, Well Nourished, Comfortable, Respiratory Distress (mild), Conversant and Obese
HEENT: Normocephalic, Atraumatic, Nose Appears Normal, Ears Appear Normal and Oxygen (5L NC)
Respiratory: Clear to Auscultation and Non Labored Respirations; Negative Accessory Resp Muscle Use
Cardiac: S1/S2, Irregular Rhythm and Tachycardic
GI: Soft, Nontender, Nondistended and Normal Bowel Sounds
Skin: Warm and Dry
Neuro: Awake, Alert, Oriented and AO x 3
Psych: Calm and Intact Judgement/Insight
Data Reviewed
-
CT Scan: Report Reviewed by me
Labs: Labs Reviewed by me
--- NOTE | 2024-08-19 08:49 | W.PN.ID1 ---
Date of Service
Date of Service: August 19, 2024
Today's Communication
Continue abx.
Assessment / Plan
Complicated urinary tract infection secondary to E. coli
E. coli bacteremia
Nephrolithiasis
Leukocytosis; improved
Transaminitis
HTN
Dyslipidemia
Hyperparathyroidism
Anxiety/depression
Recommendations:
Continue with ceftriaxone (d#4) while remains inpatient.
At time of discharge, transition to cefdinir 300 mg p.o. twice daily, to complete antibiotics through 08/29/2024.
Consider repeat urinalysis approximately 2 weeks following completion of antibiotics.
Patient will need outpatient Follow-Up with Urology regarding stone disease.
Chief Complaint
-: UTI
Subjective / Review of Systems
Review of Systems: No Fever, No Chills and No Dysuria
Vital Signs / Physical Exam
Vital Signs
Vital Signs
Temp Pulse Resp BP Pulse Ox
98.6 F 114 23 113/86 91
08/19/24 07:05 08/19/24 07:00 08/19/24 06:00 08/19/24 06:05 08/19/24 07:00
Physical Exam
Constitutional: No Acute Distress, Comfortable and Non-toxic
Eyes: Sclera Anicteric
Pulmonary: Non Labored
Gastrointestinal: Non Distended
Skin: Negative Rash or Jaundice
Neurological: Awake and Alert
Psychological: Calm
Objective Data
Lab Data
Lab Results
08/19/24 06:41
08/19/24 06:41
APTT 45.6 Sec (23.4-35.0) H 08/19/24 06:41
Estimated Creat Clear > 125 ml/min 08/19/24 06:41
Lactic Acid Cancelled 08/15/24 18:15
Total Bilirubin 1.3 mg/dl (0.2-1.3) 08/19/24 06:41
AST 72 U/L (14-36) H 08/19/24 06:41
ALT 75 U/L (0-35) H 08/19/24 06:41
Alkaline Phosphatase 173 U/L (38-126) H 08/19/24 06:41
Most recent labs reviewed.
Micro Results:
08/16/24 08:20 Blood Culture - Preliminary
Blood/Venous No Growth in 72 hours- Final report to follow
08/17/24 17:12 Blood Culture - Preliminary
Blood/Venous No Growth in 24 hours- Final report to follow
08/17/24 16:46 Blood Culture - Preliminary
Blood/Venous No Growth in 24 hours- Final report to follow
08/15/24 14:21 Blood Culture - Preliminary
Blood/Venous No Growth in 72 hours- Final report to follow
08/15/24 14:00 Blood Culture - Preliminary
Blood/Venous Escherichia coli
Gram Stain - Preliminary
08/15/24 12:15 Urine Culture - Final
Urine Escherichia coli
08/15/24 14:00 Influenza Types A & B (DOMENICO) - Final
Nasal Swab Negative for Influenza A & B, NAAT
Negative results must be combined with clinical observations
and patient history.
Nucleic Acid Amplification test (NAAT)performed on the
[employer] platform.
Blood Culture Preliminary 08/15/24-1400
Organism 1 Escherichia coli
1. Escherichia coli
M.I.C. RX
--------- ---
Amoxicillin/Potas. Clavulanate <=8/4 S
Ampicillin >16 R
Ampicillin/Sulbactam 16/8 I
Aztreonam <=4 S
Cefazolin <=2 S
Ertapenem <=0.5 S
Ciprofloxacin <=0.25 S
Gentamicin <=2 S
Meropenem <=1 S
Piperacillin/Tazobactam <=8 S
Tetracycline >8 R
Tobramycin <=2 S
Trimethoprim/Sulfamethoxazole >2/38 R
Imaging:
08/15/2024 CT abdomen/pelvis: Bilateral nonobstructing renal calculi. Left renal cyst noted. No hydronephrosis noted. Hepatomegaly with fatty infiltration. Diverticulosis without evidence of diverticulitis. Please see full dictation for
additional detail.
--- NOTE | 2024-08-19 09:31 | W.PN.CARDCBS ---
Addendum entered and electronically signed by Castro Huerta MD 08/19/24 11:15:
I saw and examined the patient.
The SHELL MOLD BONDER or PA's note was reviewed and I agree with the note.
Comment: General: Well developed, well nourished in NAD.
Neck: Supple, no JVD, HJR, carotids +2 B/L, no bruits bilaterally.
Heart: Non displaced PMI, irregular, no murmurs, No S3, S4, no rubs.
Lungs: Clear to auscultation bilaterally, no wheeze, rhonchi, rubs bilaterally,
normal expiratory phase.
Extremities: No clubbing, cyanosis or edema bilaterally.
Neuro: Grossly nonfocal, awake, alert and oriented x3.
Heart rate control remains poor in A-fib. Will continue IV Cardizem and add beta-lili. Continue IV heparin. Eventual anticoagulation when okay from urologic standpoint. If patient remains hospitalized Thursday her heart rate control remains
poor would do JOE/cardioversion on 08/22/2024
Original Note:
Today's Communication / Plan
-
Replete potassium
Continue IV diltiazem with consideration of adding oral beta-lili or CCB
Continue IV heparin; will need eventual OAC, case management consult placed for cost analysis
Continue IV antibiotics for E. coli UTI per ID
Wean oxygen as able
Impression / Plan
-
PCP: None
Card: Saw Dr. Collins Watson at [facility]
Urology: Dr. Jaimes
Impression:
Admitted with pyelonephritis 08/15/24
Sepsis
E coli bacteremia
Newly diagnosed Afib with RVR 08/18/24
Elevated LFTs
Abdominal pain and fullness
Hyperlipidemia
HTN
Echo 08/18/24: EF 50 to 55%. Mild concentric LVH. Moderately dilated left atrium. Mild MR/TR, PAP 30 mmHg
Plan:
-Patient came to ER on Thursday (08/15/2024) with fevers and chills and was admitted with pyelonephritis and cardiology is now consulted for new Afib.
-Blood cultures positive for E. coli. ID following with recommendations of continue ceftriaxone IV during hospitalization and transition to cefdinir 300 mg p.o. twice daily on d/c, to complete antibiotics through 08/29/2024.
-New onset Afib with RVR discovered this admission. Started on IV diltiazem drip and per review of telemetry heart rate still not optimally controlled and somewhat labile; hopefully heart rate will improve with treatment of infection.
-Initiated on heparin drip 08/18/2024. Will need eventual oral anticoagulation. Will have case management do cost analysis for Eliquis and Xarelto
-Potassium 3.2, replete getting IV potassium 40 mEq. Would give additional 20 mEq orally at lunch and dinner
-No previous JACKIE eval; Can be discussed as outpatient
-TSH 1.70
-Reviewed echo 08/18/2024 which shows EF of 50 to 55% moderate left atrial enlargement with mild MR/TR
-Still requiring high flow oxygen at 5 L/min, good oxygen saturations would attempt to wean
-Patient with h/o HTN and outpatient doses of amlodipine 5 mg daily and valsartan 160 mg daily on hold; likely would benefit from beta-lili or diltiazem to help with rate control/A-fib
-Outpatient dose os atorvastatin 10 mg daily is on hold due to elevated LFTs; CT of abdomen on admission showed fatty liver infiltration
-Patient with abdominal bloating and no BM since Thursday.
HPI 08/18/2024:
Patient came to ER on Thursday (08/15/2024) with fevers and chills and was admitted with pyelonephritis and cardiology is now consulted for new Afib. Patient does not have a PCP, but has been following with Urology for recurrent nephrolithiasis and was
awaiting 24 hour urine collection results last week when she started with dysuria, then chills and rigors. Patient started Bactrim she had leftover at home, but symptoms worsened and so she came to the ER Thursday and was admitted. Patient was not on
tele. Patient initially managed for pyelonephritis and sepsis, but blood cultures turned positive for E coli. Patient noted to have increased HRs into the 120s starting 08/17/24 and so Coreg 3.125 mg BID was started. Patient then had fluttering in her
chest this morning prompting ECG that showed rapid Afib which is a new diagnosis for patient. Patient saw a early intervention specialist in [place] 10 years ago for stress test because her father had from CHF and patient reports completing an exercise
nuclear stress test that was negative for ischemia.
Progress Note - Senior Telecommunications Technician
Subjective
Date of Service: August 19, 2024
Patient seen and examined. Patient lying in bed. She reports she feels considerably better today than she did in the last 2 or 3 days. Was able to sleep a little last night. Denies chest pain or shortness of breath but still feels palpitations
Objective
Labs:
08/19/24 06:41
08/19/24 06:41
Labs
Hgb 10.5 g/dL (12.0-16.0) L 08/19/24 06:41
Hct 29.9 % (37.0-47.0) L 08/19/24 06:41
Plt Count 217 10^3/uL (130-400) D 08/19/24 06:41
APTT 45.6 Sec (23.4-35.0) H 08/19/24 06:41
Sodium 139 mmol/L (135-145) 08/19/24 06:41
Potassium 3.2 mmol/L (3.5-5.1) L 08/19/24 06:41
BUN 9 mg/dl (7-17) 08/19/24 06:41
Creatinine 0.5 mg/dL (0.6-1.0) L 08/19/24 06:41
Glucose 131 mg/dl (70-99) H 08/19/24 06:41
Vital Signs and I&O:
Vital Signs
Temp Pulse Resp BP Pulse Ox
98.6 F 114 23 113/86 91
08/19/24 07:05 08/19/24 07:00 08/19/24 06:00 08/19/24 06:05 08/19/24 07:00
Vital Signs
Temp Pulse Resp BP Pulse Ox
98.6 F 114 23 113/86 91
08/19/24 07:05 08/19/24 07:00 08/19/24 06:00 08/19/24 06:05 08/19/24 07:00
Intake & Output
08/17/24 08/18/24 08/19/24 08/20/24
06:59 06:59 06:59 06:59
Intake Total 0 / 0 1660 / 1660
Output Total 300 / 300
Balance 1640 / 1640 1660 / 1660
Physical Exam
Physical Exam
GEN: No distress, awake, Ox3, obese female lying in bed
HEENT: supple, anicteric, mmm
LUNGS: CTA, no wheezes/rales; wearing 5 L oxygen via nasal cannula
CV: Irregularly irregular, S1/S2, 1/6 syst LSB murmur
ABD: soft, BS+, NT/ND, obese
EXT: No edema, clubbing or cyanosis
NEURO: Gross non-focal
SKIN: No rash warm, dry, pink
--- NOTE | 2024-08-19 10:58 | CM ---
Patient with Dx sepsis due to UTI, Paroxysmal A fib with RVR. O2 5L. Telemetry - Afib. Receiving Cardizem gtt, Heparin gtt, IV Abx, IV KCL. Per nurse; assist of 1 for mobility.
CM Consult: Cost analysis Xarelto 20mg & Eliquis 5mg BID
Per [facility];
Eliquis $35/month, Xarelto $35/month, gave Free Month & $10 copay cards for both, patient ok with cost.
Message sent to [facility] LIMA and Dr Huerta was in the room so also aware.
Patient will be returning home with available to assist, and their son is in the process of moving home from [place] for a new job, which patient is happy about. Patient states she works from home. She confirms she does not have home O2. The
patient does not think she will need/want to see VN nurse.
Plan watch for any home O2 needs.
Plan home.
[2024-08-19] MEDS: KCL 20 MEQ PO ×2 (12:23→16:47)
[2024-08-19] MEDS: STERILE WATER FOR INJECTION 20 ML IV (15:00)
[2024-08-19] MEDS: ROCEPHIN 2000 MG IV (15:00)
[2024-08-19] MEDS: TOPROL XL 12.5 MG PO (20:18)
--- NOTE | 2024-08-19 20:57 | PTCARENOTE ---
Addendum entered by Christine Clarke RN 08/20/24 06:11:
weaned to 3L NC
Original Note:
Patient voiding frequently in BSC, steady gait/ SBA. Reports slight SLOAN; otherwise denies nausea/dizziness/sob. Afib on tele. Cardizem gtt @ 15mg/hr. Heparin gtt @ 1800 unit/hr; titrated per the worklist. PTT due approx ~ 2245. Call connors and tray
table within reach.
[2024-08-19 22:55] LABS: APTT 87.7 Sec (23.4-35.0)
[2024-08-20] VITALS (12 sets, daily range): BP systolic 95–124; BP diastolic 65–89
[2024-08-20 04:56] LABS: Hematocrit 29.4 % (37.0-47.0); Hemoglobin 10.1 g/dL (12.0-16.0); Mean Corp Hgb Conc. 34.4 g/dL (33.0-37.0); Mean Corpuscular Hgb 32.2 pg (27.0-31.0); Mean Corpuscular Volume 93.6 fL (81.0-99.0); Mean Platelet Volume 10.8 fL (7.4-10.4); Platelet Count 268 10^3/uL (130-400); Red Blood Cell Count 3.14 10^6/uL (4.20-5.40); Red Cell Dist. Width 15.1 % (11.5-14.5); White Blood Cell Count 8.2 10^3/uL (4.8-10.8)
[2024-08-20 05:13] LABS: APTT 97.1 Sec (23.4-35.0)
[2024-08-20 05:27] LABS: ALT (SGPT) 72 U/L (0-35); AST (SGOT) 68 U/L (14-36); Albumin 2.9 g/dl (3.5-5.0); Alkaline Phosphatase 168 U/L (38-126); Blood Urea Nitrogen 8 mg/dl (7-17); Calcium 8.3 mg/dl (8.4-10.2); Carbon Dioxide 28 mmol/L (22-30); Chloride 106 mmol/L (98-107); Direct Bilirubin 0.5 mg/dl (0.0-0.4); Estimated Creatinine Clearance > 125 ml/min; Glucose 135 mg/dl (70-99); Potassium 3.3 mmol/L (3.5-5.1); Sodium 141 mmol/L (135-145); Total Bilirubin 1.1 mg/dl (0.2-1.3); Total Protein 5.3 g/dl (6.3-8.2); eGFR > 60.00
[2024-08-20] MEDS: CARDIZEM 125 IV ×3 (06:27→22:49)
[2024-08-20] MEDS: SENOKOT-S 1 TABLET PO ×2 (07:45→20:11)
[2024-08-20] MEDS: TOPROL XL 12.5 MG PO ×2 (07:45→20:11)
[2024-08-20] MEDS: NSS (PRESERVATIVE FREE) 10 ML IV (07:46)
[2024-08-20] MEDS: LEXAPRO 20 MG PO (07:46)
[2024-08-20] MEDS: MIRALAX 17 GRAMS PO (07:47)
[2024-08-20] MEDS: PROTONIX IV 40 MG IV (07:47)
--- NOTE | 2024-08-20 09:10 | W.PN.CARDCBS ---
Addendum entered and electronically signed by Castro Huerta MD 08/20/24 10:50:
I saw and examined the patient.
The TRANSPORTATION DIRECTOR or PA's note was reviewed and I agree with the note.
Comment: General: Well developed, well nourished in NAD.
Discussed with patient in detail. Will change heparin to Eliquis. Will plan on JOE/cardioversion on given poor heart rate control A-fib. Continue treatment of pyelonephritis with antibiotics..
Original Note:
Today's Communication / Plan
-
Replete potassium
Stop heparin and start Eliquis 5 mg twice a day
Remains on Cardizem drip and new to low-dose Toprol for rate control for A-fib.
Plan for JOE cardioversion 08/22/2024 if patient remains in A-fib
Continue antibiotics ID
Wean oxygen as tolerated
Impression / Plan
-
PCP: None
Card: Saw Dr. Collins Watson at [facility]
Urology: Dr. Jaimes
Impression:
Admitted with pyelonephritis 08/15/24
Sepsis
E coli bacteremia
Newly diagnosed Afib with RVR 08/18/24
Elevated LFTs
Abdominal pain and fullness
Hyperlipidemia
HTN
Echo 08/18/24: EF 50 to 55%. Mild concentric LVH. Moderately dilated left atrium. Mild MR/TR, PAP 30 mmHg
Plan:
-Patient came to ER on Thursday (08/15/2024) with fevers and chills and was admitted with pyelonephritis and cardiology is consulted for new Afib.
-Blood cultures positive for E. coli. ID following with recommendations of continue ceftriaxone IV during hospitalization and transition to cefdinir 300 mg p.o. twice daily on d/c, to complete antibiotics through 08/29/2024.
-New onset Afib with RVR discovered this admission. Started on IV diltiazem drip and per review of telemetry heart rate still not optimally controlled and somewhat labile; hopefully heart rate will improve with treatment of infection.
-Will plan for JOE/cardioversion on 08/22/2024
-Initiated on heparin drip 08/18/2024. DC heparin and start Eliquis 5 mg twice a day. Eliquis is $35
-Potassium 3.3, replete will give 40 mEq in am, lunch and evening
-No previous JACKIE eval; Can be discussed as outpatient
-TSH 1.70
-Reviewed echo 08/18/2024 which shows EF of 50 to 55% moderate left atrial enlargement with mild MR/TR
- Slowly oxygen requirement improving now on 3 L/min, good oxygen saturations continue to wean
-Patient with h/o HTN and outpatient doses of amlodipine 5 mg daily and valsartan 160 mg daily on hold; new to Toprol 12.5 mg twice a day. Blood pressure does remain somewhat soft.
-Outpatient dose os atorvastatin 10 mg daily is on hold due to elevated LFTs; slowly trending down. CT of abdomen on admission showed fatty liver infiltration
-Recommend patient get up and out of the bed and sit in chair if possible. Consider PT/OT
HPI 08/18/2024:
Patient came to ER on Thursday (08/15/2024) with fevers and chills and was admitted with pyelonephritis and cardiology is now consulted for new Afib. Patient does not have a PCP, but has been following with Urology for recurrent nephrolithiasis and was
awaiting 24 hour urine collection results last week when she started with dysuria, then chills and rigors. Patient started Bactrim she had leftover at home, but symptoms worsened and so she came to the ER Thursday and was admitted. Patient was not on
tele. Patient initially managed for pyelonephritis and sepsis, but blood cultures turned positive for E coli. Patient noted to have increased HRs into the 120s starting 08/17/24 and so Coreg 3.125 mg BID was started. Patient then had fluttering in her
chest this morning prompting ECG that showed rapid Afib which is a new diagnosis for patient. Patient saw a green house manager in [place] 10 years ago for stress test because her father had from CHF and patient reports completing an exercise
nuclear stress test that was negative for ischemia.
Progress Note - Adhesive Sprayer
Subjective
Date of Service: August 20, 2024
Patient seen and examined. Patient laying in bed. Patient reports she slept great last night. Still requiring 3 L of oxygen.
Objective
Labs:
08/20/24 04:46
08/20/24 04:46
Labs
Hgb 10.1 g/dL (12.0-16.0) L 08/20/24 04:46
Hct 29.4 % (37.0-47.0) L 08/20/24 04:46
Plt Count 268 10^3/uL (130-400) D 08/20/24 04:46
APTT 97.1 Sec (23.4-35.0) H 08/20/24 04:46
Sodium 141 mmol/L (135-145) 08/20/24 04:46
Potassium 3.3 mmol/L (3.5-5.1) L 08/20/24 04:46
BUN 8 mg/dl (7-17) 08/20/24 04:46
Creatinine 0.5 mg/dL (0.6-1.0) L 08/20/24 04:46
Glucose 135 mg/dl (70-99) H 08/20/24 04:46
Vital Signs and I&O:
Vital Signs
Temp Pulse Resp BP Pulse Ox
97.7 F 111 18 101/66 94
08/20/24 07:35 08/20/24 07:45 08/20/24 06:10 08/20/24 07:45 08/20/24 06:00
Vital Signs
Temp Pulse Resp BP Pulse Ox
97.7 F 111 18 101/66 94
08/20/24 07:35 08/20/24 07:45 08/20/24 06:10 08/20/24 07:45 08/20/24 06:00
Intake & Output
08/18/24 08/19/24 08/20/24 08/21/24
06:59 06:59 06:59 06:59
Intake Total 1659 240 / 240
Balance 1659 240 / 240
Physical Exam
Physical Exam
GEN: No distress, awake, Ox3, obese female lying in bed
HEENT: supple, anicteric, mmm
LUNGS: CTA, no wheezes/rales; wearing 3 L oxygen via nasal cannula
CV: Irregularly irregular, S1/S2, 1/6 syst LSB murmur
ABD: soft, BS+, NT/ND, obese
EXT: No edema, clubbing or cyanosis
NEURO: Gross non-focal
SKIN: No rash warm, dry, pink
--- NOTE | 2024-08-20 09:43 | W.PN.ID1 ---
Date of Service
Date of Service: August 20, 2024
Today's Communication
Contine abx. See below...
Assessment / Plan
Complicated urinary tract infection secondary to E. coli
E. coli bacteremia
Nephrolithiasis
Leukocytosis; improved
Transaminitis
HTN
Dyslipidemia
Hyperparathyroidism
Anxiety/depression
Recommendations:
Continue with ceftriaxone (d#5) while remains inpatient.
At time of discharge, transition to cefdinir 300 mg p.o. twice daily, to complete antibiotics through 08/29/2024.
Consider repeat urinalysis approximately 2 weeks following completion of antibiotics.
Patient will need outpatient Follow-Up with Urology regarding stone disease.
Chief Complaint
-: UTI
Subjective / Review of Systems
Review of Systems: No Fever, No Chills and No Dysuria
Vital Signs / Physical Exam
Vital Signs
Vital Signs
Temp Pulse Resp BP Pulse Ox
97.7 F 111 18 101/66 94
08/20/24 07:35 08/20/24 07:45 08/20/24 06:10 08/20/24 07:45 08/20/24 06:00
Physical Exam
Constitutional: No Acute Distress, Comfortable and Non-toxic
Eyes: Sclera Anicteric
Pulmonary: Non Labored
Gastrointestinal: Non Distended
Genito-Urinary: Negative CVA Tenderness
Skin: Negative Rash or Jaundice
Neurological: Awake and Alert
Psychological: Calm
Objective Data
Lab Data
Lab Results
08/20/24 04:46
08/20/24 04:46
APTT 97.1 Sec (23.4-35.0) H 08/20/24 04:46
Estimated Creat Clear > 125 ml/min 08/20/24 04:46
Lactic Acid Cancelled 08/15/24 18:15
Total Bilirubin 1.1 mg/dl (0.2-1.3) 08/20/24 04:46
AST 68 U/L (14-36) H 08/20/24 04:46
ALT 72 U/L (0-35) H 08/20/24 04:46
Alkaline Phosphatase 168 U/L (38-126) H 08/20/24 04:46
Most recent labs reviewed.
Micro Results:
08/16/24 08:20 Blood Culture - Preliminary
Blood/Venous No Growth in 4 days- Final report to follow
08/17/24 17:12 Blood Culture - Preliminary
Blood/Venous No Growth in 48 hours- Final report to follow
08/17/24 16:46 Blood Culture - Preliminary
Blood/Venous No Growth in 48 hours- Final report to follow
08/15/24 14:21 Blood Culture - Preliminary
Blood/Venous No Growth in 4 days- Final report to follow
08/15/24 14:00 Blood Culture - Preliminary
Blood/Venous Escherichia coli
Gram Stain - Preliminary
08/15/24 12:15 Urine Culture - Final
Urine Escherichia coli
08/15/24 14:00 Influenza Types A & B (DOMENICO) - Final
Nasal Swab Negative for Influenza A & B, NAAT
Negative results must be combined with clinical observations
and patient history.
Nucleic Acid Amplification test (NAAT)performed on the
[employer] platform.
Blood Culture Preliminary 08/15/24-1400
Organism 1 Escherichia coli
1. Escherichia coli
M.I.C. RX
--------- ---
Amoxicillin/Potas. Clavulanate <=8/4 S
Ampicillin >16 R
Ampicillin/Sulbactam 16/8 I
Aztreonam <=4 S
Cefazolin <=2 S
Ertapenem <=0.5 S
Ciprofloxacin <=0.25 S
Gentamicin <=2 S
Meropenem <=1 S
Piperacillin/Tazobactam <=8 S
Tetracycline >8 R
Tobramycin <=2 S
Trimethoprim/Sulfamethoxazole >2/38 R
Imaging:
08/15/2024 CT abdomen/pelvis: Bilateral nonobstructing renal calculi. Left renal cyst noted. No hydronephrosis noted. Hepatomegaly with fatty infiltration. Diverticulosis without evidence of diverticulitis. Please see full dictation for
additional detail.
--- NOTE | 2024-08-20 10:01 | W.PN.HOSP.TC ---
Today's Communication/Plan
-
Feels better but ontinues to be tachycardic
Assessment / Plan
Assessment / Plan
HPI: 64-year-old female with past medical history significant for essential hypertension, hyperlipidemia, hyperparathyroidism, anxiety/depression and Hx renal calculi who presented to [facility] for evaluation of dysuria.
Patient reports dysuria started approximately a week ago, she had Bactrim at home from previous UTI and was using it to treat her symptoms. She developed fever with rigors and nausea with vomiting.
CT AP:
1. There are bilateral nonobstructing renal calculi
2. There is a left renal cyst
3. There is hepatomegaly with fatty infiltration
4. There is diverticulosis but no evidence of diverticulitis
5. 2 mm pulmonary nodule on the right is unchanged, likely benign.
6. Linear band in the left lower lobe is likely scarring
A/P:
1. sepsis POA 2/2 E coli urinary tract infection with bacteremia - improving
urine culture grew E coli, sensitivity reviewed, sensitive to ceftriaxone
blood culture cleared from 08/15
cont IV antibiotic Ceftriaxone
Cont supportive care, cont Tylenol cautiously
Appreciate ID input
2. Hypokalemia - today 3.3
replete PRN
Will replete today
3. hyperparathyroidism s/p parathyroidectomy
Follow Ca
4. Paroxysmal A fib with RVR - continues, complicated by essential hypertension
Was Started Cardizem drip- upgraded to IMU
Cont heparin drip
Off Coreg (new med), held STITCHER SET UP OPERATOR AUTOMATIC amlodipine and valsartan
Monitor HR / BP
Echo noted EF 50-55%. Normal right ventricular size and function.
Card on board. Defer cardioversion to Card
Probable cardioversion on thursday if she does not self-convert
5. Transaminitis LFT, suspect related to active infection
trend LFT: was 37/39, today 68/72
cautious use of Tylenol
Hold Lipitor
Hold NSAID (can be hepatotoxic too)
CT AP from admission noted fatty infiltration of liver.
6. Abd pain and head ache suspect related to A fib, resolved
Admission CT AP was unrevealing
Tylenol PRN (but see note above)
7. hyperlipidemia, retirement issue
Holding Lipitor
8. anxiety/depression - euthymic today
continue escitalopram
9. Hx renal calculi
Pt follows with uro outpt
Prior hospitalist discussed /curbsided urologist wagon winder Dr Garcia, he indicated there is no need for urgent urologic intervention
Code status: full code
DVT prophylaxis: Lovenox sq -> heparin drip
Anticipated Discharge: > 48 hours
Subjective/Interval History
-
Date of Service: August 20, 2024
Feels better today
Objective Data
-
Labs:
Laboratory Results
08/19/24 08/20/24
22:35 04:46
WBC 8.2
Hgb 10.1 L
Hct 29.4 L
Plt Count 268 D
APTT 87.7 H 97.1 H
Sodium 141
Potassium 3.3 L
Chloride 106
Carbon Dioxide 28
BUN 8
Creatinine 0.5 L
Glucose 135 H
Calcium 8.3 L
Total Bilirubin 1.1
AST 68 H
ALT 72 H
Alkaline Phosphatase 168 H
Vital Signs:
Vital Signs
Temp Pulse Resp BP Pulse Ox
97.7 F 111 18 101/66 94
08/20/24 07:35 08/20/24 07:45 08/20/24 06:10 08/20/24 07:45 08/20/24 06:00
I&O
08/19/24 08/20/24 08/21/24
06:59 06:59 06:59
Intake Total 240 / 240
Balance 240 / 240
Review of Systems
-
History Source: Patient
All other systems: Reviewed and negative
Physical Exam
-
General: Well Developed, Well Nourished, No Apparent Distress, Comfortable and Conversant
HEENT: Normocephalic, Atraumatic, Moist Mucous Membranes, Nose Appears Normal and Ears Appear Normal
Respiratory: Clear to Auscultation
Cardiac: Regular Rhythm and Tachycardic
GI: Soft, Nontender and Nondistended
Musculoskeletal: No Clubbing, No Cyanosis and No Edema
Skin: Warm and Dry
Neuro: Awake, Alert, Oriented and AO x 3
Psych: Calm
Data Reviewed
-
Labs: Labs Reviewed by me
[2024-08-20] MEDS: KCL 40 MEQ PO ×3 (10:27→17:28)
[2024-08-20] MEDS: ELIQUIS 5 MG PO ×2 (10:28→20:10)
[2024-08-20] MEDS: KLOR-CON 20 MEQ PO (12:43)
[2024-08-20] MEDS: ROCEPHIN 2000 MG IV (17:28)
[2024-08-20] MEDS: STERILE WATER FOR INJECTION 20 ML IV (17:28)
[2024-08-20] MEDS: TYLENOL 650 MG PO (22:49)
[2024-08-21] VITALS (12 sets, daily range): BP systolic 103–135; BP diastolic 72–119
--- NOTE | 2024-08-21 02:31 | PTCARENOTE ---
Assumed care for patient overnight, received report from zenon RN. Pt AAOx3, pleasant. A-fib on the monitor HR anywhere from 80s-120s. HR spiked when ambulating to 140's. Cardizem gtt remains @ 15mg/hr. Pt complains of minor headache tonight
requesting PRN Tylenol. Pt denies any dizziness, fatigue, or SOB. Pt voiding using the BSC. Pt on 3L NC. SpO2 93%. Left arm more edematous compared to the right. Applied ice to the extremity. Pt had one moderate sized BM. Pt able to make needs
known. Call connors within reach.
[2024-08-21 06:43] LABS: Hematocrit 30.8 % (37.0-47.0); Hemoglobin 10.5 g/dL (12.0-16.0); Mean Corp Hgb Conc. 34.1 g/dL (33.0-37.0); Mean Corpuscular Hgb 32.4 pg (27.0-31.0); Mean Corpuscular Volume 95.1 fL (81.0-99.0); Mean Platelet Volume 10.6 fL (7.4-10.4); Platelet Count 323 10^3/uL (130-400); Red Blood Cell Count 3.24 10^6/uL (4.20-5.40); Red Cell Dist. Width 15.5 % (11.5-14.5); White Blood Cell Count 8.1 10^3/uL (4.8-10.8)
[2024-08-21 07:05] LABS: ALT (SGPT) 74 U/L (0-35); AST (SGOT) 66 U/L (14-36); Albumin 3.1 g/dl (3.5-5.0); Alkaline Phosphatase 161 U/L (38-126); Blood Urea Nitrogen 6 mg/dl (7-17); Calcium 8.6 mg/dl (8.4-10.2); Carbon Dioxide 24 mmol/L (22-30); Chloride 109 mmol/L (98-107); Direct Bilirubin 0.5 mg/dl (0.0-0.4); Estimated Creatinine Clearance > 125 ml/min; Glucose 127 mg/dl (70-99); Potassium 4.1 mmol/L (3.5-5.1); Sodium 142 mmol/L (135-145); Total Protein 5.6 g/dl (6.3-8.2); eGFR > 60.00
[2024-08-21] MEDS: CARDIZEM 125 IV ×2 (08:10→16:59)
[2024-08-21] MEDS: KLOR-CON 20 MEQ PO (08:12)
[2024-08-21] MEDS: SENOKOT-S 1 TABLET PO (08:12)
[2024-08-21] MEDS: ELIQUIS 5 MG PO ×2 (08:12→19:43)
[2024-08-21] MEDS: TOPROL XL 12.5 MG PO ×2 (08:12→19:41)
[2024-08-21] MEDS: LEXAPRO 20 MG PO (08:13)
[2024-08-21] MEDS: NSS (PRESERVATIVE FREE) 10 ML IV (08:14)
[2024-08-21] MEDS: MIRALAX PO (08:14)
[2024-08-21] MEDS: PROTONIX IV 40 MG IV (08:14)
--- NOTE | 2024-08-21 08:33 | W.PN.HOSP.TC ---
Today's Communication/Plan
-
NPO after midnight.
Assessment / Plan
Assessment / Plan
64-year-old woman with past medical history significant for:
essential hypertension,
hyperlipidemia,
hyperparathyroidism,
anxiety/depression and
Hx renal calculi
who presented to [facility] for evaluation of dysuria. Patient reported dysuria started approximately a week ago, she had Bactrim at home from previous UTI and was using it to treat her symptoms. She developed fever with rigors and nausea
with vomiting. then afib with RVR.
CT AP:
1. There are bilateral nonobstructing renal calculi
2. There is a left renal cyst
3. There is hepatomegaly with fatty infiltration
4. There is diverticulosis but no evidence of diverticulitis
5. 2 mm pulmonary nodule on the right is unchanged, likely benign.
6. Linear band in the left lower lobe is likely scarring
A/P:
1. sepsis POA 2/ E coli urinary tract infection with bacteremia - improving
urine culture grew E coli, sensitivity reviewed, sensitive to ceftriaxone
blood culture cleared from 08/15
cont IV antibiotic Ceftriaxone
Cont supportive care, cont Tylenol cautiously
Appreciate ID input
2. Hypokalemia - today 4.1 after adding low dose daily oral.
replete PRN
3. hyperparathyroidism s/p parathyroidectomy
Follow Ca
4. Paroxysmal A fib with RVR - continues, complicated by essential hypertension
Was Started Cardizem drip
Cont heparin drip
Off Coreg (new med), held ICT PROGRAMMER amlodipine and valsartan
Monitor HR / BP
Echo noted EF 50-55%. Normal right ventricular size and function.
Card on board. Defer cardioversion to Card
Probable cardioversion on thursday if she does not self-convert
5. Transaminitis LFT, suspect related to active infection
trend LFT: was 37/39, today 68/72
cautious use of Tylenol
Hold Lipitor
Hold NSAID (can be hepatotoxic too)
CT AP from admission noted fatty infiltration of liver.
6. Abd pain and head ache suspect related to A fib, resolved
Admission CT AP was unrevealing
Tylenol PRN (but see note above)
7. hyperlipidemia, [place] [facility] issue
Holding Lipitor
8. anxiety/depression - euthymic today
continue escitalopram
9. Hx renal calculi
Pt follows with uro outpt
Prior hospitalist discussed /curbsided urologist benefits consulting analyst Dr Garcia, he indicated there is no need for urgent urologic intervention
Code status: full code
DVT prophylaxis: Lovenox sq -> heparin drip
Anticipated Discharge: 24 - 48 hours
Subjective/Interval History
-
Date of Service: August 21, 2024
Doing well, No new issues.
Objective Data
-
Labs:
Laboratory Results
08/21/24
06:27
WBC 8.1
Hgb 10.5 L
Hct 30.8 L
Plt Count 323 D
APTT 58.0 H
Sodium 142
Potassium 4.1
Chloride 109 H
Carbon Dioxide 24
BUN 6 L
Creatinine 0.4 L
Glucose 127 H
Calcium 8.6
Total Bilirubin 1.0
AST 66 H
ALT 74 H
Alkaline Phosphatase 161 H
Vital Signs:
Vital Signs
Temp Pulse Resp BP Pulse Ox
97.4 F 98 18 120/73 94
08/21/24 07:35 08/21/24 07:00 08/20/24 06:10 08/21/24 08:12 08/21/24 07:00
I&O
08/20/24 08/21/24 08/22/24
06:59 06:59 06:59
Intake Total 240 / 240 960 / 960
Balance 240 / 240 960 / 960
Review of Systems
-
History Source: Patient
All other systems: Reviewed and negative
Physical Exam
-
General: Well Developed, Well Nourished, No Apparent Distress and Comfortable
HEENT: Nose Appears Normal and Ears Appear Normal
Respiratory: Clear to Auscultation
Cardiac: Regular Rhythm and S1/S2
GI: Soft
Musculoskeletal: No Clubbing, No Cyanosis and No Edema
Skin: Warm and Dry
Neuro: Awake, Alert, Oriented and AO x 3
Psych: Calm
Data Reviewed
-
Labs: Labs Reviewed by me
--- NOTE | 2024-08-21 08:43 | W.PN.ID1 ---
Date of Service
Date of Service: August 21, 2024
Today's Communication
Continue antibiotics per
Assessment / Plan
Complicated urinary tract infection secondary to E. coli
E. coli bacteremia
Nephrolithiasis
Leukocytosis; improved
Transaminitis
Atrial fibrillation
HTN
Dyslipidemia
Hyperparathyroidism
Anxiety/depression
Recommendations:
Continue with ceftriaxone (d#6) while remains inpatient.
At time of discharge, transition to cefdinir 300 mg p.o. twice daily, to complete antibiotics through 08/29/2024.
Repeat urinalysis approximately 2 weeks following completion of antibiotics.
Patient will need outpatient Follow-Up with Urology regarding stone disease.
Chief Complaint
-: UTI
Subjective / Review of Systems
Review of Systems: No Fever
Vital Signs / Physical Exam
Vital Signs
Vital Signs
Temp Pulse Resp BP Pulse Ox
97.4 F 98 18 120/73 94
08/21/24 07:35 08/21/24 07:00 08/20/24 06:10 08/21/24 08:12 08/21/24 07:00
Physical Exam
Constitutional: No Acute Distress, Comfortable and Non-toxic
Eyes: Sclera Anicteric
Pulmonary: Non Labored
Gastrointestinal: Non Distended
Neurological: Awake and Alert
Psychological: Calm
Objective Data
Lab Data
Lab Results
08/21/24 06:27
08/21/24 06:27
APTT 58.0 Sec (23.4-35.0) H 08/21/24 06:27
Estimated Creat Clear > 125 ml/min 08/21/24 06:27
Lactic Acid Cancelled 08/15/24 18:15
Total Bilirubin 1.0 mg/dl (0.2-1.3) 08/21/24 06:27
AST 66 U/L (14-36) H 08/21/24 06:27
ALT 74 U/L (0-35) H 08/21/24 06:27
Alkaline Phosphatase 161 U/L (38-126) H 08/21/24 06:27
Most recent labs reviewed.
Micro Results:
08/16/24 08:20 Blood Culture - Final
Blood/Venous No Growth - Final Report
08/17/24 17:12 Blood Culture - Preliminary
Blood/Venous No Growth in 72 hours- Final report to follow
08/17/24 16:46 Blood Culture - Preliminary
Blood/Venous No Growth in 72 hours- Final report to follow
08/15/24 14:21 Blood Culture - Final
Blood/Venous No Growth - Final Report
08/15/24 14:00 Blood Culture - Preliminary
Blood/Venous Escherichia coli
Gram Stain - Preliminary
08/15/24 12:15 Urine Culture - Final
Urine Escherichia coli
08/15/24 14:00 Influenza Types A & B (DOMENICO) - Final
Nasal Swab Negative for Influenza A & B, NAAT
Negative results must be combined with clinical observations
and patient history.
Nucleic Acid Amplification test (NAAT)performed on the
[employer] platform.
Blood Culture Preliminary 08/15/24-1400
Organism 1 Escherichia coli
1. Escherichia coli
M.I.C. RX
--------- ---
Amoxicillin/Potas. Clavulanate <=8/4 S
Ampicillin >16 R
Ampicillin/Sulbactam 16/8 I
Aztreonam <=4 S
Cefazolin <=2 S
Ertapenem <=0.5 S
Ciprofloxacin <=0.25 S
Gentamicin <=2 S
Meropenem <=1 S
Piperacillin/Tazobactam <=8 S
Tetracycline >8 R
Tobramycin <=2 S
Trimethoprim/Sulfamethoxazole >/ R
Imaging:
08/15/2024 CT abdomen/pelvis: Bilateral nonobstructing renal calculi. Left renal cyst noted. No hydronephrosis noted. Hepatomegaly with fatty infiltration. Diverticulosis without evidence of diverticulitis. Please see full dictation for
additional detail.
--- NOTE | 2024-08-21 11:24 | W.PN.CARDCBS ---
Today's Communication / Plan
-
For JOE/cardioversion on 08/22
Impression / Plan
-
PCP: None
Card: Saw Dr. Collins Watson at [facility]
Urology: Dr. Jaimes
Impression:
Admitted with pyelonephritis 08/15/24
Sepsis
E coli bacteremia
Newly diagnosed Afib with RVR 08/18/24
Elevated LFTs
Abdominal pain and fullness
Hyperlipidemia
HTN
Echo 08/18/24: EF 50 to 55%. Mild concentric LVH. Moderately dilated left atrium. Mild MR/TR, PAP 30 mmHg
Plan:
Remains in atrial fibrillation with reasonable heart rate control
Continue IV Cardizem and Toprol
Eliquis has been started
Will plan for JOE/cardioversion on 08/22/2024
Continue treatment of pyelonephritis
HPI 08/18/2024:
Patient came to ER on Thursday (08/15/2024) with fevers and chills and was admitted with pyelonephritis and cardiology is now consulted for new Afib. Patient does not have a PCP, but has been following with Urology for recurrent nephrolithiasis and was
awaiting 24 hour urine collection results last week when she started with dysuria, then chills and rigors. Patient started Bactrim she had leftover at home, but symptoms worsened and so she came to the ER Thursday and was admitted. Patient was not on
tele. Patient initially managed for pyelonephritis and sepsis, but blood cultures turned positive for E coli. Patient noted to have increased HRs into the 120s starting 08/17/24 and so Coreg 3.125 mg BID was started. Patient then had fluttering in her
chest this morning prompting ECG that showed rapid Afib which is a new diagnosis for patient. Patient saw a calender supervisor in [place] 10 years ago for stress test because her father had from CHF and patient reports completing an exercise
nuclear stress test that was negative for ischemia.
Progress Note - Retail Property Manager
Subjective
Date of Service: August 21, 2024
No complaints
Objective
Labs:
08/21/24 06:27
08/21/24 06:27
Labs
Hgb 10.5 g/dL (12.0-16.0) L 08/21/24 06:27
Hct 30.8 % (37.0-47.0) L 08/21/24 06:27
Plt Count 323 10^3/uL (130-400) D 08/21/24 06:27
APTT 58.0 Sec (23.4-35.0) H 08/21/24 06:27
Sodium 142 mmol/L (135-145) 08/21/24 06:27
Potassium 4.1 mmol/L (3.5-5.1) 08/21/24 06:27
BUN 6 mg/dl (7-17) L 08/21/24 06:27
Creatinine 0.4 mg/dL (0.6-1.0) L 08/21/24 06:27
Glucose 127 mg/dl (70-99) H 08/21/24 06:27
Vital Signs and I&O:
Vital Signs
Temp Pulse Resp BP Pulse Ox
97.4 F 110 18 120/73 95
08/21/24 07:35 08/21/24 09:00 08/20/24 06:10 08/21/24 08:12 08/21/24 09:42
Vital Signs
Temp Pulse Resp BP Pulse Ox
97.4 F 110 18 120/73 95
08/21/24 07:35 08/21/24 09:00 08/20/24 06:10 08/21/24 08:12 08/21/24 09:42
Intake & Output
08/19/24 08/20/24 08/21/24 08/22/24
06:59 06:59 06:59 06:59
Intake Total 240 / 240 960 / 960
Balance 240 / 240 960 / 960
Physical Exam
Physical Exam
General: Well developed, well nourished in NAD.
Neck: Supple, no JVD, HJR, carotids +2 B/L, no bruits bilaterally.
Heart: Non displaced PMI, irregular, no murmurs, No S3, S4, no rubs.
Lungs: Clear to auscultation bilaterally, no wheeze, rhonchi, rubs bilaterally,
normal expiratory phase.
Extremities: No clubbing, cyanosis or edema bilaterally.
Neuro: Grossly nonfocal, awake, alert and oriented x3.
[2024-08-21] MEDS: ROCEPHIN 2000 MG IV (16:59)
[2024-08-21] MEDS: STERILE WATER FOR INJECTION 20 ML IV (16:59)
[2024-08-21] MEDS: SENOKOT-S PO (19:43)
[2024-08-21] MEDS: TYLENOL 650 MG PO (19:44)
[2024-08-22] VITALS (12 sets, daily range): BP systolic 100–130; BP diastolic 68–93; BMI 35.8
[2024-08-22] MEDS: CARDIZEM 125 IV ×2 (01:24→10:47)
--- NOTE | 2024-08-22 02:03 | PTCARENOTE ---
Patient aaox3, c/o headache at start of shift. PRN Tylenol administered and effective. Patient continues on cardizem gtt at 15. Able to use call connors appropriately and able to transfer from bed to bsc safely and independently. Bed bath provided
earlier this shift, linens changed. Patient remains in afib, hr in the low 100's. Will continue to monitor patient closely.
[2024-08-22 05:27] LABS: ALT (SGPT) 81 U/L (0-35); AST (SGOT) 70 U/L (14-36); Albumin 3.3 g/dl (3.5-5.0); Alkaline Phosphatase 175 U/L (38-126); Blood Urea Nitrogen 4 mg/dl (7-17); Calcium 9.1 mg/dl (8.4-10.2); Carbon Dioxide 28 mmol/L (22-30); Chloride 106 mmol/L (98-107); Direct Bilirubin 0.4 mg/dl (0.0-0.4); Estimated Creatinine Clearance > 125 ml/min; Glucose 129 mg/dl (70-99); Magnesium 1.6 mg/dl (1.6-2.3); Potassium 4.1 mmol/L (3.5-5.1); Sodium 143 mmol/L (135-145); Total Bilirubin 0.8 mg/dl (0.2-1.3); eGFR > 60.00
[2024-08-22 07:12] LABS: Hematocrit 37.9 % (37.0-47.0); Hemoglobin 12.5 g/dL (12.0-16.0); Mean Corpuscular Hgb 31.9 pg (27.0-31.0); Mean Corpuscular Volume 96.7 fL (81.0-99.0); Mean Platelet Volume 10.7 fL (7.4-10.4); Platelet Count 397 10^3/uL (130-400); Red Blood Cell Count 3.92 10^6/uL (4.20-5.40); Red Cell Dist. Width 15.9 % (11.5-14.5); White Blood Cell Count 8.9 10^3/uL (4.8-10.8)
--- NOTE | 2024-08-22 08:13 | W.PN.HOSP.TC ---
Addendum entered and electronically signed by Adan Doyle MD 08/22/24 16:32:
Per cardiology note, regarding JOE cardioversion, 'Study was terminated early due to patient's tenuous clinical status. She had respiratory distress due to obstructive apnea with respiratory saturations as low as 70s. Resolved with extubation.'
Original Note:
Today's Communication/Plan
-
Successful cardioversion to NSR today
Will need PT
Wean off oxygen as discussed with nurse
Assessment / Plan
Assessment / Plan
Physical Exam
General: Well Developed, Well Nourished, No Apparent Distress and Comfortable
HEENT: Nose Appears Normal and Ears Appear Normal
Respiratory: Clear to Auscultation Bilaterally
Cardiac: Regular Rate and Rhythm. S1/S2.
GI: Soft. Nontender. Positive bowel sounds.
Musculoskeletal: No Cyanosis and No Edema
Skin: Warm and Dry
Neuro: Awake, Alert, Oriented and AO x 3
Psych: Calm
Assessment/Plan
64-year-old woman with past medical history significant for:
essential hypertension,
hyperlipidemia,
hyperparathyroidism,
anxiety/depression and
Hx renal calculi
who presented to [facility] for evaluation of dysuria. Patient reported dysuria started approximately a week prior to presentation, she had Bactrim at home from previous UTI and was using it to treat her symptoms. She developed fever with
rigors and nausea with vomiting. then afib with RVR.
CT AP:
1. There are bilateral nonobstructing renal calculi
2. There is a left renal cyst
3. There is hepatomegaly with fatty infiltration
4. There is diverticulosis but no evidence of diverticulitis
5. 2 mm pulmonary nodule on the right is unchanged, likely benign.
6. Linear band in the left lower lobe is likely scarring
1. Sepsis POA 2/2 E coli urinary tract infection with bacteremia - improving
Complicated urinary tract infection/Pyelonephritis secondary to E. coli
urine culture grew E coli, sensitivity reviewed, sensitive to ceftriaxone
blood culture cleared from 08/15
cont IV antibiotic Ceftriaxone while patient remains inpatient -- at the time of discharge, transition to cefdinir 300 mg p.o. twice daily, to complete antibiotics through 08/29/2024
Cont supportive care, cont Tylenol cautiously
Appreciate ID input
Repeat urinalysis approximately 2 weeks following completion of antibiotics (so around 09/12/2024)
Patient will need outpatient Follow-Up with Urology given nephrolithiasis
64-year-old female here with UTI and resolved bacteremia, on ceftriaxone. She went into A-fib RVR, and was started with Cardizem drip/heparin drip, and added Toprol today. Cardiology following, to consider JOE cardioversion on Thursday if remains in
A-fib RVR. Likely OK to go home after cardioversion.
2. Hypokalemia - today 4.1 after adding low dose daily oral.
replete PRN
3. hyperparathyroidism s/p parathyroidectomy
Follow Ca
4. A fib with RVR (NEW DIAGNOSIS as of 08/18/24)
Was Started on Cardizem drip
Successful cardioversion to NSR on 08/22/24 (no thrombus on JOE on 08/22/24)
Increase Toprol XL to 25 mg daily
Continue Eliquis 5 mg BID
held MAGAZINE EDITOR amlodipine and valsartan
Monitor HR / BP
Echo noted EF 50-55%. Normal right ventricular size and function.
Card on board. Defer cardioversion to Card
Probable cardioversion on thursday if she does not self-convert
5. Transaminitis LFT, suspect related to active infection
trend LFT: relatively stable without significant increase
cautious use of Tylenol -- up to 2 grams per 24 hours is okay
Hold Lipitor
Hold NSAID (can be hepatotoxic too)
CT AP from admission noted fatty infiltration of liver.
6. Abd pain and head ache suspect related to A fib, resolved
Admission CT AP was unrevealing
Tylenol PRN (but see note above)
7. 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
Holding Lipitor
8. anxiety/depression - euthymic today
continue escitalopram
9. Hx renal calculi
Pt follows with uro outpt
Prior hospitalist discussed /curbsided urologist supervisor erection shop Dr Garcia, he indicated there is no need for urgent urologic intervention
10. Hypertension
Code status: full code
DVT prophylaxis: Eliquis
Anticipated Discharge: 24 - 48 hours
Subjective/Interval History
-
Date of Service: August 22, 2024
Patient was seen and examined. She reported feeling much better after her cardioversion today, denied any significant symptoms or complaints.
Objective Data
-
Labs:
Laboratory Results
08/22/24
04:41
WBC 8.9
Hgb 12.5
Hct 37.9
Plt Count 397 D
Sodium 143
Potassium 4.1
Chloride 106
Carbon Dioxide 28
BUN 4 L
Creatinine 0.4 L
Glucose 129 H
Calcium 9.1
Total Bilirubin 0.8
AST 70 H
ALT 81 H
Alkaline Phosphatase 175 H
Vital Signs:
Vital Signs
Temp Pulse Resp BP Pulse Ox
97.6 F 96 18 120/81 96
08/22/24 07:30 08/22/24 06:00 08/20/24 06:10 08/22/24 06:00 08/22/24 06:00
I&O
08/21/24 08/22/24 08/23/24
06:59 06:59 06:59
Intake Total 960 / 960
Output Total 2700 / 2700
Balance 960 / 960 -2700 / -2700
--- NOTE | 2024-08-22 08:17 | PTCARENOTE ---
Patient NPO at midnight for JOE today. Cardizem drip at 15mg/15mls/hr. Afib with PVC's , heart rates 80-90's at rest in bed. Will continue to monitor.
--- NOTE | 2024-08-22 08:55 | W.PN.CARDCBS ---
Today's Communication / Plan
-
JOE/CV
wean off IV Cardizem gtt
Impression / Plan
-
PCP: None
Card: Saw Dr. Collins Watson at [facility]
Urology: Dr. Jaimes
Impression:
Admitted with pyelonephritis 08/15/24
Sepsis
E coli bacteremia
Newly diagnosed Afib with RVR 08/18/24
Elevated LFTs
Abdominal pain and fullness
Hyperlipidemia
HTN
Echo 08/18/24: EF 50 to 55%. Mild concentric LVH. Moderately dilated left atrium. Mild MR/TR, PAP 30 mmHg
Plan:
Remains in atrial fibrillation with reasonable heart rate control on IV Cardizem gtt and Toprol XL 12.5mg daily
Plan to wean Cardizem gtt off and increase Toprol XL to 25mg daily
Eliquis 5mg BID has been started 08/20/24
Plan for JOE/cardioversion on 08/22/2024. Discussed procedure, risks/benefits and patient agreeable to proceed. No contraindications
Continue treatment of pyelonephritis with antibiotics per ID
Elevated LFTs with slight increase today
-CT with hepatomegaly with fatty infiltration
-OP Lipitor held
-Consider GI evaluation, inpt vs OP
HPI 08/18/2024:
Patient came to ER on Thursday (08/15/2024) with fevers and chills and was admitted with pyelonephritis and cardiology is now consulted for new Afib. Patient does not have a PCP, but has been following with Urology for recurrent nephrolithiasis and was
awaiting 24 hour urine collection results last week when she started with dysuria, then chills and rigors. Patient started Bactrim she had leftover at home, but symptoms worsened and so she came to the ER Thursday and was admitted. Patient was not on
tele. Patient initially managed for pyelonephritis and sepsis, but blood cultures turned positive for E coli. Patient noted to have increased HRs into the 120s starting 08/17/24 and so Coreg 3.125 mg BID was started. Patient then had fluttering in her
chest this morning prompting ECG that showed rapid Afib which is a new diagnosis for patient. Patient saw a patient scheduling coordinator in [place] 10 years ago for stress test because her father had from CHF and patient reports completing an exercise
nuclear stress test that was negative for ischemia.
Progress Note - Agency Legal Counsel
Subjective
Date of Service: August 22, 2024
Seen and examined. Feeling better- tolerating diet. + voids and BM. no N/V and improved abd pain
Objective
Labs:
08/22/24 04:41
08/22/24 04:41
Labs
Hgb 12.5 g/dL (12.0-16.0) 08/22/24 04:41
Hct 37.9 % (37.0-47.0) 08/22/24 04:41
Plt Count 397 10^3/uL (130-400) D 08/22/24 04:41
APTT 58.0 Sec (23.4-35.0) H 08/21/24 06:27
Sodium 143 mmol/L (135-145) 08/22/24 04:41
Potassium 4.1 mmol/L (3.5-5.1) 08/22/24 04:41
BUN 4 mg/dl (7-17) L 08/22/24 04:41
Creatinine 0.4 mg/dL (0.6-1.0) L 08/22/24 04:41
Glucose 129 mg/dl (70-99) H 08/22/24 04:41
Vital Signs and I&O:
Vital Signs
Temp Pulse Resp BP Pulse Ox
97.6 F 94 18 111/86 94
08/22/24 07:30 08/22/24 08:00 08/20/24 06:10 08/22/24 08:00 08/22/24 08:00
Vital Signs
Temp Pulse Resp BP Pulse Ox
97.6 F 94 18 111/86 94
08/22/24 07:30 08/22/24 08:00 08/20/24 06:10 08/22/24 08:00 08/22/24 08:00
Intake & Output
08/20/24 08/21/24 08/22/24 08/23/24
06:59 06:59 06:59 06:59
Intake Total 240 / 240 960 / 960
Output Total 2700 / 2700
Balance 240 / 240 960 / 960 -2700 / -2700
Physical Exam
Physical Exam
General: Well developed, well nourished in NAD on RA
Heart: irregularly irregular, +s1S2 no murmur
Lungs: Clear to auscultation bilaterally, no wheeze, rhonchi, rubs bilaterally,
normal expiratory phase.
Extremities no edema. mild swelling left hand
Neuro: Grossly nonfocal, awake, alert and oriented x3.
[2024-08-22] MEDS: PROTONIX IV 40 MG IV (09:42)
[2024-08-22] MEDS: KLOR-CON 20 MEQ PO (09:43)
[2024-08-22] MEDS: NSS (PRESERVATIVE FREE) 10 ML IV (09:43)
[2024-08-22] MEDS: LEXAPRO 20 MG PO (09:44)
[2024-08-22] MEDS: ELIQUIS 5 MG PO ×2 (09:44→21:00)
[2024-08-22] MEDS: TOPROL XL 12.5 MG PO (09:44)
[2024-08-22] MEDS: MIRALAX PO (09:46)
[2024-08-22] MEDS: SENOKOT-S PO ×2 (09:47→21:01)
--- NOTE | 2024-08-22 12:36 | PTCARENOTE ---
Patient off unit to labor conciliator.
--- NOTE | 2024-08-22 13:17 | W.PN.ID1 ---
Date of Service
Date of Service: August 22, 2024
Today's Communication
Continue antibiotics.
Assessment / Plan
Complicated urinary tract infection secondary to E. coli
E. coli bacteremia
Nephrolithiasis
Leukocytosis; improved
Transaminitis
Atrial fibrillation
HTN
Dyslipidemia
Hyperparathyroidism
Anxiety/depression
Recommendations:
Continue with ceftriaxone (d#7) while remains inpatient.
At time of discharge, transition to cefdinir 300 mg p.o. twice daily, to complete antibiotics through 08/29/2024.
Repeat urinalysis approximately 2 weeks following completion of antibiotics.
Patient will need outpatient Follow-Up with Urology regarding stone disease.
Patient for tentative cardioversion later today.
����������������������������������������������������������
Chief Complaint
-: UTI
Subjective / Review of Systems
Patient seen and examined. Remains in A-fib at this time. No dysuria.
Review of Systems: No Fever and No Chills
Vital Signs / Physical Exam
Vital Signs
Vital Signs
Temp Pulse Resp BP Pulse Ox
97.6 F 105 18 112/81 96
08/22/24 07:30 08/22/24 12:00 08/20/24 06:10 08/22/24 12:00 08/22/24 12:00
Physical Exam
Constitutional: No Acute Distress, Comfortable and Non-toxic
Cardiovascular: Irregular Rate
Pulmonary: Non Labored
Gastrointestinal: Non Distended
Neurological: Awake and Alert
Psychological: Calm
Objective Data
Lab Data
Lab Results
08/22/24 04:41
08/22/24 04:41
APTT 58.0 Sec (23.4-35.0) H 08/21/24 06:27
Estimated Creat Clear > 125 ml/min 08/22/24 04:41
Lactic Acid Cancelled 08/15/24 18:15
Total Bilirubin 0.8 mg/dl (0.2-1.3) 08/22/24 04:41
AST 70 U/L (14-36) H 08/22/24 04:41
ALT 81 U/L (0-35) H 08/22/24 04:41
Alkaline Phosphatase 175 U/L (38-126) H 08/22/24 04:41
Most recent labs reviewed.
Micro Results:
08/15/24 14:00 Blood Culture - Final
Blood/Venous Escherichia coli
Gram Stain - Final
08/17/24 17:12 Blood Culture - Preliminary
Blood/Venous No Growth in 4 days- Final report to follow
08/17/24 16:46 Blood Culture - Preliminary
Blood/Venous No Growth in 4 days- Final report to follow
08/16/24 08:20 Blood Culture - Final
Blood/Venous No Growth - Final Report
08/15/24 14:21 Blood Culture - Final
Blood/Venous No Growth - Final Report
08/15/24 12:15 Urine Culture - Final
Urine Escherichia coli
08/15/24 14:00 Influenza Types A & B (DOMENICO) - Final
Nasal Swab Negative for Influenza A & B, NAAT
Negative results must be combined with clinical observations
and patient history.
Nucleic Acid Amplification test (NAAT)performed on the
[employer] platform.
Blood Culture Preliminary 08/15/24-1400
Organism 1 Escherichia coli
1. Escherichia coli
M.I.C. RX
--------- ---
Amoxicillin/Potas. Clavulanate <=8/4 S
Ampicillin >16 R
Ampicillin/Sulbactam 16/8 I
Aztreonam <=4 S
Cefazolin <=2 S
Ertapenem <=0.5 S
Ciprofloxacin <=0.25 S
Gentamicin <=2 S
Meropenem <=1 S
Piperacillin/Tazobactam <=8 S
Tetracycline >8 R
Tobramycin <=2 S
Trimethoprim/Sulfamethoxazole >2/38 R
Imaging:
08/15/2024 CT abdomen/pelvis: Bilateral nonobstructing renal calculi. Left renal cyst noted. No hydronephrosis noted. Hepatomegaly with fatty infiltration. Diverticulosis without evidence of diverticulitis. Please see full dictation for
additional detail.
[2024-08-22] MEDS: TYLENOL 650 MG PO (14:22)
--- NOTE | 2024-08-22 15:04 | PTCARENOTE ---
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 NSR HR 60-80's. VS stable. Sp02 98% 2L. Will wean patient o2 today. Patient alert and oriented. a little loopy from sedation. Patient instructed to ask for assist to commode. Lunch order called in. Will monitor.
[2024-08-22] MEDS: FLUSH (NSS) 1 FLUSH IV (16:39)
[2024-08-22] MEDS: ROCEPHIN 2000 MG IV (16:39)
[2024-08-22] MEDS: STERILE WATER FOR INJECTION 20 ML IV (16:39)
[2024-08-22] MEDS: TOPROL XL 25 MG PO (17:12)
[2024-08-22] MEDS: ATIVAN 0.25 MG IV (17:15)
[2024-08-22] MEDS: NSS (PRESERVATIVE FREE) 0.125 ML IV (17:16)
--- NOTE | 2024-08-22 17:19 | PTCARENOTE ---
Patient back in afib with HR 90's- 120's. Cardiology notified. Orders obtained.
--- NOTE | 2024-08-22 17:29 | W.PN.UPDATE ---
Update Note
Progress Note Update
Up to see patient, she is back in Afib. Patient says she felt great after CV, she could stand and was not SOB. Patient was not aware that she was back in Afib, but was disheartened to hear the news. ECG and tele reviewed by me looks like Afib with
RVR. Changed Toprol XL to 25 mg daily, ordered by me. Talked with patient about amiodarone as a short-term AAD as a bridge to possible ablation. We talked about possible long-term risk with amiodarone, but again current plan is for short-term bridge
therapy. Patient is agreeable. Start amiodarone 400 mg TID now. Updated patient's RN as well. Check ECG in AM to follow QTc, ordered by me. 31 min critical care time.
--- NOTE | 2024-08-22 17:40 | CM ---
Patient with Dx sepsis due to UTI, Paroxysmal A fib with RVR. O2 4L. Plan JOE/cardioversion today. Telemetry - Afib. Receiving Cardizem gtt, IV Abx. Per nursing; mobility by self.
Plan watch for any home O2 needs.
Plan home.
[2024-08-22] MEDS: PACERONE 400 MG PO ×2 (18:27→21:01)
[2024-08-23] VITALS (12 sets, daily range): BP systolic 107–139; BP diastolic 68–91; BMI 34.2
--- NOTE | 2024-08-23 00:26 | PTCARENOTE ---
Assumed care for patient overnight, received report from zenon RN. Pt AAOx3, pleasant. Pt drowsy at change of shift. Pt is A-fib on the monitor HR 60s-120s. Pt denies any chest pain, SOB, or fatigue. Administered dose of amiodarone. Pt educated.
Pt bumped up to 3L NC SpO2 93%. Pt voiding frequently using BSC with standby assistance. Pt has call connors within reach.
[2024-08-23] MEDS: TYLENOL 650 MG PO (05:05)
[2024-08-23 05:33] LABS: ALT (SGPT) 79 U/L (0-35); AST (SGOT) 82 U/L (14-36); Albumin 3.5 g/dl (3.5-5.0); Alkaline Phosphatase 160 U/L (38-126); Blood Urea Nitrogen 7 mg/dl (7-17); Calcium 8.9 mg/dl (8.4-10.2); Carbon Dioxide 27 mmol/L (22-30); Chloride 107 mmol/L (98-107); Estimated Creatinine Clearance 122 ml/min; Glucose 132 mg/dl (70-99); Magnesium 1.7 mg/dl (1.6-2.3); Potassium 4.2 mmol/L (3.5-5.1); Sodium 142 mmol/L (135-145); Total Bilirubin 0.8 mg/dl (0.2-1.3); Total Protein 6.3 g/dl (6.3-8.2); eGFR > 60.00
[2024-08-23] MEDS: TOPROL XL 25 MG PO (09:12)
[2024-08-23] MEDS: ELIQUIS 5 MG PO ×2 (09:13→20:31)
[2024-08-23] MEDS: LEXAPRO 20 MG PO (09:13)
[2024-08-23] MEDS: PACERONE 400 MG PO (09:13)
[2024-08-23] MEDS: SENOKOT-S PO ×2 (09:13→20:32)
[2024-08-23] MEDS: NSS (PRESERVATIVE FREE) 10 ML IV (09:14)
[2024-08-23] MEDS: MIRALAX PO (09:15)
[2024-08-23] MEDS: KLOR-CON 20 MEQ PO (09:15)
[2024-08-23] MEDS: PROTONIX IV 40 MG IV (09:15)
[2024-08-23] MEDS: FLUSH (NSS) 1 FLUSH IV (09:17)
--- NOTE | 2024-08-23 09:22 | W.PN.CARDCBS ---
Today's Communication / Plan
-
She is back in aFib s/p cardioversion
Cont Amiodarone load and consider repeat cardioversion after outpt follow
Cont Toprol XL for rate control.
Cont Eliquis 5mg BID has been started 08/20/24
Continue treatment of pyelonephritis with antibiotics per ID
LFTs remain elevated.
Outpt Lipitor held
Consider GI eval.
Impression / Plan
-
.
PCP: None
Card: Saw Dr. Collins Watson at [facility]
Urology: Dr. Jaimes
Impression:
Admitted with pyelonephritis 08/15/24
Sepsis
E coli bacteremia
Newly diagnosed Afib with RVR 08/18/24
s/p JOE/cardioversion 08/22, back in AFib
Elevated LFTs
Abdominal pain and fullness
Hyperlipidemia
HTN
Echo 08/18/24: EF 50 to 55%. Mild concentric LVH. Moderately dilated left atrium. Mild MR/TR, PAP 30 mmHg
JOE 08/22/24 Study was terminated early due to patient's tenuous clinical status. She had respiratory distress due to obstructive apnea with respiratory saturations as low as 70s. Resolved with extubation.Low normal left ventricular systolic
function. LVEF 50-55%. No left atrial appendage thrombus. No significant valvular disease. No change compared to TTE on 08/18/24.
Plan:
She is back in aFib s/p cardioversion
Cont Amiodarone load and consider repeat cardioversion after outpt follow
Cont Toprol XL for rate control.
Cont Eliquis 5mg BID has been started 08/20/24
Continue treatment of pyelonephritis with antibiotics per ID
LFTs remain elevated.
Outpt Lipitor held
Consider GI eval.
She wants to follow with [facility] after d/c.
Discussed with nursing.
HPI 08/18/2024:
Patient came to ER on Thursday (08/15/2024) with fevers and chills and was admitted with pyelonephritis and cardiology is now consulted for new Afib. Patient does not have a PCP, but has been following with Urology for recurrent nephrolithiasis and was
awaiting 24 hour urine collection results last week when she started with dysuria, then chills and rigors. Patient started Bactrim she had leftover at home, but symptoms worsened and so she came to the ER Thursday and was admitted. Patient was not on
tele. Patient initially managed for pyelonephritis and sepsis, but blood cultures turned positive for E coli. Patient noted to have increased HRs into the 120s starting 08/17/24 and so Coreg 3.125 mg BID was started. Patient then had fluttering in her
chest this morning prompting ECG that showed rapid Afib which is a new diagnosis for patient. Patient saw a senior android developer in [place] 10 years ago for stress test because her father had from CHF and patient reports completing an exercise
nuclear stress test that was negative for ischemia.
Up to see patient, she is back in Afib. Patient says she felt great after CV, she could stand and was not SOB. Patient was not aware that she was back in Afib, but was disheartened to hear the news. ECG and tele reviewed by me looks like Afib with
RVR. Changed Toprol XL to 25 mg daily, ordered by me. Talked with patient about amiodarone as a short-term AAD as a bridge to possible ablation. We talked about possible long-term risk with amiodarone, but again current plan is for short-term bridge
therapy. Patient is agreeable. Start amiodarone 400 mg TID now. Updated patient's RN as well. Check ECG in AM to follow QTc, ordered by me. 31 min critical care time.
Progress Note - Chairperson Anesthesiology
Subjective
Date of Service: August 23, 2024
Pt seen and examined. No cp
Objective
Labs:
08/22/24 04:41
08/23/24 04:57
Labs
Hgb 12.5 g/dL (12.0-16.0) 08/22/24 04:41
Hct 37.9 % (37.0-47.0) 08/22/24 04:41
Plt Count 397 10^3/uL (130-400) D 08/22/24 04:41
APTT 58.0 Sec (23.4-35.0) H 08/21/24 06:27
Sodium 142 mmol/L (135-145) 08/23/24 04:57
Potassium 4.2 mmol/L (3.5-5.1) 08/23/24 04:57
BUN 7 mg/dl (7-17) 08/23/24 04:57
Creatinine 0.5 mg/dL (0.6-1.0) L 08/23/24 04:57
Glucose 132 mg/dl (70-99) H 08/23/24 04:57
Vital Signs and I&O:
Vital Signs
Temp Pulse Resp BP Pulse Ox
97.5 F 124 23 121/77 94
08/23/24 07:29 08/23/24 09:00 08/23/24 09:00 08/23/24 06:00 08/23/24 09:00
Vital Signs
Temp Pulse Resp BP Pulse Ox
97.5 F 124 23 121/77 94
08/23/24 07:29 08/23/24 09:00 08/23/24 09:00 08/23/24 06:00 08/23/24 09:00
Intake & Output
08/21/24 08/22/24 08/23/24 08/24/24
06:59 06:59 06:59 06:59
Intake Total 960 / 960 1155 / 1155
Output Total 2700 / 2700 1460 / 1460
Balance 960 / 960 -2700 / -2700 -305 / -305
Physical Exam
Physical Exam
General: No acute distress, AAOX3
Neck: Negative JVD
Heart: Irregulary irregular, Negative S3 positive S1/S2, Negative S4, No murmur
Lungs: CTA b/l, negative wheezes/rales/rhonchi
Abd: Positive BS, NT/ND, neg rebound/rigidity/guarding
Ext: Negative cyanosis/clubbing/edema
Neuro: nonfocal
--- NOTE | 2024-08-23 12:57 | W.PN.HOSP.TC ---
Today's Communication/Plan
-
Still AFib with RVR
Continue Amiodarone Load
Continue Eliquis
Out of bed as able
Wean oxygen as tolerated
Discussed with patient's nurse
Assessment / Plan
Assessment / Plan
Physical Exam
General: Well Developed, Well Nourished, No Apparent Distress and Comfortable
HEENT: Nose Appears Normal and Ears Appear Normal
Respiratory: Clear to Auscultation Bilaterally
Cardiac: S1/S2. Irregular Rhythm. Tachycardia.
GI: Soft. Nontender. Positive bowel sounds.
Musculoskeletal: No Cyanosis and No Edema
Skin: Warm and Dry
Neuro: Awake, Alert, Oriented and AO x 3
Psych: Calm
Assessment/Plan
64-year-old woman with past medical history significant for:
essential hypertension,
hyperlipidemia,
hyperparathyroidism,
anxiety/depression and
Hx renal calculi
who presented to [facility] for evaluation of dysuria. Patient reported dysuria started approximately a week prior to presentation, she had Bactrim at home from previous UTI and was using it to treat her symptoms. She developed fever with
rigors and nausea with vomiting. then afib with RVR.
CT AP:
1. There are bilateral nonobstructing renal calculi
2. There is a left renal cyst
3. There is hepatomegaly with fatty infiltration
4. There is diverticulosis but no evidence of diverticulitis
5. 2 mm pulmonary nodule on the right is unchanged, likely benign.
6. Linear band in the left lower lobe is likely scarring
1. Sepsis POA 2/2 E coli urinary tract infection with bacteremia - improving
Complicated urinary tract infection/Pyelonephritis secondary to E. coli
urine culture grew E coli, sensitivity reviewed, sensitive to ceftriaxone
blood culture cleared from 08/15
cont IV antibiotic Ceftriaxone while patient remains inpatient -- at the time of discharge, transition to cefdinir 300 mg p.o. twice daily, to complete antibiotics through 08/29/2024
Cont supportive care, cont Tylenol cautiously
Appreciate ID input
Repeat urinalysis approximately 2 weeks following completion of antibiotics (so around 09/12/2024)
Patient will need outpatient Follow-Up with Urology given nephrolithiasis
2. Hypokalemia - RESOLVED
3. hyperparathyroidism s/p parathyroidectomy
Follow Ca
4. A fib with RVR (NEW DIAGNOSIS as of 08/18/24)
Was Started on Cardizem drip
Successful cardioversion to NSR on 08/22/24 (no thrombus on JOE on 08/22/24) -- but patient went back to A-Fib RVR on 08/22/24 afternoon
Amiodarone load has been added -- continue -- possible outpatient cardioversion
Continue Toprol XL to 25 mg daily
Continue Eliquis 5 mg BID
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
Monitor HR / BP
Echo noted EF 50-55%. Normal right ventricular size and function.
Cardiology on board.
5. Transaminitis LFT, suspect related to active infection
trend LFT: relatively stable without significant increase
cautious use of Tylenol -- up to 2 grams per 24 hours is okay
Hold Lipitor
Hold NSAID (can be hepatotoxic too)
CT AP from admission noted fatty infiltration of liver.
6. Abd pain and head ache suspect related to A fib, resolved
Admission CT AP was unrevealing
Tylenol PRN (but see note above)
7. hyperlipidemia, retirement issue
Holding Lipitor given AST and ALT levels
8. anxiety/depression - euthymic today
continue escitalopram
9. Hx renal calculi
Pt follows with uro outpt
Prior hospitalist discussed /curbsided urologist summons server Dr Garcia, he indicated there is no need for urgent urologic intervention
10. Hypertension
Code Status: Full Code
DVT Prophylaxis: Eliquis
Anticipated Discharge: > 48 hours
Subjective/Interval History
-
Date of Service: August 23, 2024
Patient was seen and examined. She reported feeling better today.
Objective Data
-
Labs:
Laboratory Results
08/23/24
04:57
Sodium 142
Potassium 4.2
Chloride 107
Carbon Dioxide 27
BUN 7
Creatinine 0.5 L
Glucose 132 H
Calcium 8.9
Total Bilirubin 0.8
AST 82 H
ALT 79 H
Alkaline Phosphatase 160 H
Vital Signs:
Vital Signs
Temp Pulse Resp BP Pulse Ox
98.3 F 124 23 121/77 94
08/23/24 11:40 08/23/24 09:00 08/23/24 09:00 08/23/24 06:00 08/23/24 09:00
I&O
08/22/24 08/23/24 08/24/24
06:59 06:59 06:59
Intake Total 1155 / 1155
Output Total 2700 / 2700 1460 / 1460
Balance -2700 / -2700 -305 / -305
--- NOTE | 2024-08-23 13:01 | W.PN.ID1 ---
Date of Service
Date of Service: August 23, 2024
Today's Communication
Continue antibiotics. See below�
Assessment / Plan
Complicated urinary tract infection secondary to E. coli
E. coli bacteremia
Nephrolithiasis
Leukocytosis; improved
Transaminitis
Atrial fibrillation
HTN
Dyslipidemia
Hyperparathyroidism
Anxiety/depression
Recommendations:
Pt overall clinically stable form an ID perspective.
Transition to cefdinir 300 mg p.o. twice daily, to complete antibiotics through 08/29/2024.
Repeat urinalysis approximately 2 weeks following completion of antibiotics.
Patient will need outpatient Follow-Up with Urology regarding stone disease.
����������������������������������������������������������
Chief Complaint
-: UTI and Bacteremia
Subjective / Review of Systems
Patient seen and examined. Remains in A-fib despite cardioversion. No dysuria.
Review of Systems: No Fever and No Chills
Vital Signs / Physical Exam
Vital Signs
Vital Signs
Temp Pulse Resp BP Pulse Ox
98.3 F 124 23 121/77 94
08/23/24 11:40 08/23/24 09:00 08/23/24 09:00 08/23/24 06:00 08/23/24 09:00
Physical Exam
Constitutional: No Acute Distress, Comfortable and Non-toxic
Cardiovascular: Irregular Rate
Pulmonary: Non Labored
Gastrointestinal: Non Distended
Neurological: Awake and Alert
Psychological: Calm
Objective Data
Lab Data
Lab Results
08/22/24 04:41
08/23/24 04:57
APTT 58.0 Sec (23.4-35.0) H 08/21/24 06:27
Estimated Creat Clear 122 ml/min 08/23/24 04:57
Lactic Acid Cancelled 08/15/24 18:15
Total Bilirubin 0.8 mg/dl (0.2-1.3) 08/23/24 04:57
AST 82 U/L (14-36) H 08/23/24 04:57
ALT 79 U/L (0-35) H 08/23/24 04:57
Alkaline Phosphatase 160 U/L (38-126) H 08/23/24 04:57
Most recent labs reviewed.
Micro Results:
08/17/24 17:12 Blood Culture - Final
Blood/Venous No Growth - Final Report
08/17/24 16:46 Blood Culture - Final
Blood/Venous No Growth - Final Report
08/15/24 14:00 Blood Culture - Final
Blood/Venous Escherichia coli
Gram Stain - Final
08/16/24 08:20 Blood Culture - Final
Blood/Venous No Growth - Final Report
08/15/24 14:21 Blood Culture - Final
Blood/Venous No Growth - Final Report
08/15/24 12:15 Urine Culture - Final
Urine Escherichia coli
08/15/24 14:00 Influenza Types A & B (DOMENICO) - Final
Nasal Swab Negative for Influenza A & B, NAAT
Negative results must be combined with clinical observations
and patient history.
Nucleic Acid Amplification test (NAAT)performed on the
[employer] platform.
Blood Culture Preliminary 08/15/24-1400
Organism 1 Escherichia coli
1. Escherichia coli
M.I.C. RX
--------- ---
Amoxicillin/Potas. Clavulanate <=8/4 S
Ampicillin >16 R
Ampicillin/Sulbactam 16/8 I
Aztreonam <=4 S
Cefazolin <=2 S
Ertapenem <=0.5 S
Ciprofloxacin <=0.25 S
Gentamicin <=2 S
Meropenem <=1 S
Piperacillin/Tazobactam <=8 S
Tetracycline >8 R
Tobramycin <=2 S
Trimethoprim/Sulfamethoxazole >2/38 R
Imaging:
08/15/2024 CT abdomen/pelvis: Bilateral nonobstructing renal calculi. Left renal cyst noted. No hydronephrosis noted. Hepatomegaly with fatty infiltration. Diverticulosis without evidence of diverticulitis. Please see full dictation for
additional detail.
[2024-08-23] MEDS: PACERONE PO (17:28)
--- NOTE | 2024-08-23 17:28 | PTCARENOTE ---
Patient in SR/SB with pvc's. HR dropping to the 40's briefly at times. BP's110/60's. Patient denies feeling dizzy or lightheaded. ECG obtained. Dr. Murillo notified and order to hold amiodarone until cardiology reevaluates tomorrow. ECG in AM.
Patient offers no complaints. Ambulating with minimal assistance to commode or bathroom.
--- NOTE | 2024-08-23 20:05 | W.PN.UPDATE ---
Update Note
Progress Note Update
Reported by the nursing staff that the patient noted with itchy raised rash on the back and chest that developed after receiving amiodarone.
Per patient rash started last night after the first dose of amiodarone and increased today at the chest and back area.
Denies sob, tongue swelling or any other symptoms.
One time IV Benadryl 25mg was given.
Amiodarone was held by veterinary livestock inspector due to bradycardia after 2nd dose received.
[2024-08-23] MEDS: OMNICEF 300 MG PO (20:31)
[2024-08-23] MEDS: BENADRYL 25 MG IV (20:31)
--- NOTE | 2024-08-23 23:23 | PTCARENOTE ---
Patient with raised rash on back and chest. patient stated that it was itchy and began one day prior. No reported SOB/throat tightness. call center professional provider made aware and ordered iv benadryl x1.
[2024-08-24] VITALS (9 sets, daily range): BP systolic 116–152; BP diastolic 58–87
--- NOTE | 2024-08-24 04:06 | PTCARENOTE ---
Patient flipped from NSR with pacs to sinus gurwinder in the 30s to afib 110s-120s. Amiodarone on hold for episodes of bradycardia. Rash on back and chest without change. IV benadryl effective at controlling itch overnight.
[2024-08-24 05:33] LABS: ALT (SGPT) 67 U/L (0-35); AST (SGOT) 83 U/L (14-36); Albumin 3.4 g/dl (3.5-5.0); Alkaline Phosphatase 142 U/L (38-126); Blood Urea Nitrogen 9 mg/dl (7-17); Calcium 9.2 mg/dl (8.4-10.2); Carbon Dioxide 27 mmol/L (22-30); Chloride 107 mmol/L (98-107); Estimated Creatinine Clearance 122 ml/min; Glucose 127 mg/dl (70-99); Magnesium 1.7 mg/dl (1.6-2.3); Potassium 4.1 mmol/L (3.5-5.1); Sodium 142 mmol/L (135-145); Total Bilirubin 0.8 mg/dl (0.2-1.3); Total Protein 6.1 g/dl (6.3-8.2); eGFR > 60.00
--- NOTE | 2024-08-24 07:54 | W.PN.HOSP.TC ---
Today's Communication/Plan
-
Discharge today
Assessment / Plan
Assessment / Plan
Physical Exam
General: Well Developed, Well Nourished, No Apparent Distress and Comfortable
HEENT: Normocephalic
Respiratory: Clear to Auscultation Bilaterally
Cardiac: S1/S2. Regular Rhythm.
GI: Soft. Nontender. Positive bowel sounds.
Musculoskeletal: No Cyanosis and No Edema
Skin: Warm and Dry
Neuro: Awake, Alert, Oriented and AO x 3
Psych: Calm
Assessment/Plan
64-year-old woman with past medical history significant for:
essential hypertension,
hyperlipidemia,
hyperparathyroidism,
anxiety/depression and
Hx renal calculi
who presented to [facility] for evaluation of dysuria. Patient reported dysuria started approximately a week prior to presentation, she had Bactrim at home from previous UTI and was using it to treat her symptoms. She developed fever with
rigors and nausea with vomiting. then afib with RVR.
CT AP:
1. There are bilateral nonobstructing renal calculi
2. There is a left renal cyst
3. There is hepatomegaly with fatty infiltration
4. There is diverticulosis but no evidence of diverticulitis
5. 2 mm pulmonary nodule on the right is unchanged, likely benign.
6. Linear band in the left lower lobe is likely scarring
1. Sepsis POA 2/ E coli urinary tract infection with bacteremia - improved
Complicated urinary tract infection/Pyelonephritis secondary to E. coli
urine culture grew E coli, sensitivity reviewed, sensitive to ceftriaxone
blood culture cleared from 08/15
cont IV antibiotic Ceftriaxone while patient remains inpatient -- at the time of discharge, transition to cefdinir 300 mg p.o. twice daily, to complete antibiotics through 08/29/2024
Cont supportive care, cont Tylenol cautiously
Appreciate ID input
Repeat urinalysis approximately 2 weeks following completion of antibiotics (so around 09/12/2024)
Patient will need outpatient Follow-Up with Urology given nephrolithiasis
2. Hypokalemia - RESOLVED
3. hyperparathyroidism s/p parathyroidectomy
Follow Ca
4. A fib with RVR (NEW DIAGNOSIS as of 08/18/24)
Prolonged QTc on EKG
Was given Cardizem drip
Successful cardioversion to NSR on 08/22/24 (no thrombus on JOE on 08/22/24) -- but patient went back to A-Fib RVR on 08/22/24 afternoon
Amiodarone stopped due to itchy rash (which improved with stopping Amiodarone and providing Benadryl) and due to QTc prolongation
Continue Toprol XL to 25 mg daily
Continue Eliquis 5 mg BID
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
Monitor HR / BP
Echo noted EF 50-55%. Normal right ventricular size and function.
Cardiology on board.
Follow-up with [facility] cardiology after discharge.
Patient does not need home oxygen on discharge.
5. Transaminitis LFT, suspect related to active infection
trend LFT: relatively stable without significant increase
cautious use of Tylenol -- up to 2 grams per 24 hours is okay
Hold Lipitor
Hold NSAID (can be hepatotoxic too)
CT AP from admission noted fatty infiltration of liver.
6. Abd pain and head ache suspect related to A fib, resolved
Admission CT AP was unrevealing
Tylenol PRN (but see note above)
7. hyperlipidemia, care home issue
Holding Lipitor given AST and ALT levels
8. anxiety/depression - euthymic today
HOLD escitalopram due to QTc prolongation
9. Hx renal calculi
Pt follows with uro outpt
Prior hospitalist discussed /curbsided urologist conductor yard Dr Garcia, he indicated there is no need for urgent urologic intervention
10. Hypertension
11. Itchy Rash -- possibly related to bathing clothes versus Amiodarone (which has been stopped)
-Improved with Benadryl
-Follow-up with PCP
Code Status: Full Code
DVT Prophylaxis: Eliquis
More than 30 minutes spent in discharge including
Final examination of the patient
Summarizing hospital stay
Instructions for continuing care to all relevant caregivers
Preparation of discharge records, prescriptions, and referral forms
Total time spent (in minutes): 43
Anticipated Discharge: Today
Subjective/Interval History
-
Date of Service: August 24, 2024
Patient was seen and examined. She denied any chest pain or shortness of breath.
Objective Data
-
Labs:
Laboratory Results
08/24/24
04:46
Sodium 142
Potassium 4.1
Chloride 107
Carbon Dioxide 27
BUN 9
Creatinine 0.5 L
Glucose 127 H
Calcium 9.2
Total Bilirubin 0.8
AST 83 H
ALT 67 H
Alkaline Phosphatase 142 H
Vital Signs:
Vital Signs
Temp Pulse Resp BP Pulse Ox
97.7 F 64 19 125/80 93
08/24/24 07:44 08/24/24 07:00 08/24/24 07:00 08/24/24 06:00 08/24/24 07:00
I&O
08/23/24 08/24/24 08/25/24
06:59 06:59 06:59
Intake Total 1155 / 1155 1920 / 1920
Output Total 1460 / 1460 500 / 500
Balance -305 / -305 1420 / 1420
[2024-08-24] MEDS: MIRALAX PO (08:06)
[2024-08-24] MEDS: SENOKOT-S PO (08:06)
[2024-08-24] MEDS: LEXAPRO 20 MG PO (08:08)
[2024-08-24] MEDS: OMNICEF 300 MG PO (08:08)
[2024-08-24] MEDS: KLOR-CON 20 MEQ PO (08:08)
[2024-08-24] MEDS: TOPROL XL 25 MG PO (08:08)
[2024-08-24] MEDS: PROTONIX 40 MG PO (08:08)
[2024-08-24] MEDS: ELIQUIS 5 MG PO (08:09)
--- NOTE | 2024-08-24 08:56 | W.PN.CARDCBS ---
Today's Communication / Plan
-
Continue anticoagulation
Remain off amiodarone, monitor QTc while in the hospital
Outpatient follow-up to be arranged
Compensated cardiac status.
Impression / Plan
-
.
PCP: None
Card: Saw Dr. Collins Watson at [facility]
Urology: Dr. Jaimes
Impression:
Admitted with pyelonephritis 08/15/24
Sepsis
E coli bacteremia
Newly diagnosed Afib with RVR 08/18/24
s/p JOE/cardioversion 08/22, back in AFib, spontaneous conversion back to sinus 08/23
Prolonged QTc while on on amiodarone
Elevated LFTs
Abdominal pain and fullness
Hyperlipidemia
HTN
Echo 08/18/24: EF 50 to 55%. Mild concentric LVH. Moderately dilated left atrium. Mild MR/TR, PAP 30 mmHg
JOE 08/22/24 Study was terminated early due to patient's tenuous clinical status. She had respiratory distress due to obstructive apnea with respiratory saturations as low as 70s. Resolved with extubation.Low normal left ventricular systolic
function. LVEF 50-55%. No left atrial appendage thrombus. No significant valvular disease. No change compared to TTE on 08/18/24.
Plan:
Remains in sinus rhythm off amiodarone.
Would continue to avoid amiodarone at this point given QT and potential rash. She feels the rash may not be related to the amiodarone.
Monitor QTc. EKG reviewed.
Will continue a rate control strategy for now. Continue Toprol-XL for rate control.
Cont Eliquis 5mg BID has been started 08/20/24
Continue treatment of pyelonephritis per ID and primary service
LFTs remain elevated.
Outpt Lipitor held
Consider GI eval inpatient versus outpatient.
She wants to follow with [facility] after d/c and we will schedule her for a follow-up,
HPI 08/18/2024:
Patient came to ER on Thursday (08/15/2024) with fevers and chills and was admitted with pyelonephritis and cardiology is now consulted for new Afib. Patient does not have a PCP, but has been following with Urology for recurrent nephrolithiasis and was
awaiting 24 hour urine collection results last week when she started with dysuria, then chills and rigors. Patient started Bactrim she had leftover at home, but symptoms worsened and so she came to the ER Thursday and was admitted. Patient was not on
tele. Patient initially managed for pyelonephritis and sepsis, but blood cultures turned positive for E coli. Patient noted to have increased HRs into the 120s starting 08/17/24 and so Coreg 3.125 mg BID was started. Patient then had fluttering in her
chest this morning prompting ECG that showed rapid Afib which is a new diagnosis for patient. Patient saw a prenatal nurse in [place] 10 years ago for stress test because her father had from CHF and patient reports completing an exercise
nuclear stress test that was negative for ischemia.
Up to see patient, she is back in Afib. Patient says she felt great after CV, she could stand and was not SOB. Patient was not aware that she was back in Afib, but was disheartened to hear the news. ECG and tele reviewed by me looks like Afib with
RVR. Changed Toprol XL to 25 mg daily, ordered by me. Talked with patient about amiodarone as a short-term AAD as a bridge to possible ablation. We talked about possible long-term risk with amiodarone, but again current plan is for short-term bridge
therapy. Patient is agreeable. Start amiodarone 400 mg TID now. Updated patient's RN as well. Check ECG in AM to follow QTc, ordered by me. 31 min critical care time.
Progress Note - Health Practice Manager
Subjective
Date of Service: August 24, 2024
Patient seen and examined. No chest pain or shortness of breath
Objective
Labs:
08/22/24 04:41
08/24/24 04:46
Labs
Hgb 12.5 g/dL (12.0-16.0) 08/22/24 04:41
Hct 37.9 % (37.0-47.0) 08/22/24 04:41
Plt Count 397 10^3/uL (130-400) D 08/22/24 04:41
APTT 58.0 Sec (23.4-35.0) H 08/21/24 06:27
Sodium 142 mmol/L (135-145) 08/24/24 04:46
Potassium 4.1 mmol/L (3.5-5.1) 08/24/24 04:46
BUN 9 mg/dl (7-17) 08/24/24 04:46
Creatinine 0.5 mg/dL (0.6-1.0) L 08/24/24 04:46
Glucose 127 mg/dl (70-99) H 08/24/24 04:46
Vital Signs and I&O:
Vital Signs
Temp Pulse Resp BP Pulse Ox
97.7 F 67 19 123/86 93
08/24/24 07:44 08/24/24 08:08 08/24/24 07:00 08/24/24 08:08 08/24/24 07:00
Vital Signs
Temp Pulse Resp BP Pulse Ox
97.7 F 67 19 123/86 93
08/24/24 07:44 08/24/24 08:08 08/24/24 07:00 08/24/24 08:08 08/24/24 07:00
Intake & Output
08/22/24 08/23/24 08/24/24 08/25/24
06:59 06:59 06:59 06:59
Intake Total 1155 / 1155 1920 / 1920
Output Total 2700 / 2700 1460 / 1460 500 / 500
Balance -2700 / -2700 -305 / -305 1420 / 1420
Physical Exam
Physical Exam
General: No acute distress, AAOX3
Neck: Negative JVD
Heart: Regular, Negative S3 positive S1/S2, Negative S4, No murmur
Lungs: CTA b/l, negative wheezes/rales/rhonchi
Abd: Positive BS, NT/ND, neg rebound/rigidity/guarding
Ext: Negative cyanosis/clubbing/edema
Neuro: nonfocal
--- NOTE | 2024-08-24 11:10 | W.PN.ID1 ---
Date of Service
Date of Service: August 24, 2024
Today's Communication
Continue antibiotics.
Assessment / Plan
Complicated urinary tract infection secondary to E. coli
E. coli bacteremia
Nephrolithiasis
Leukocytosis; improved
Transaminitis
Atrial fibrillation
HTN
Dyslipidemia
Hyperparathyroidism
Anxiety/depression
Recommendations:
Pt overall clinically stable form an ID perspective.
Continue cefdinir 300 mg p.o. twice daily, to complete antibiotics through 08/29/2024.
Repeat urinalysis approximately 2 weeks following completion of antibiotics.
Patient will need outpatient Follow-Up with Urology regarding stone disease.
����������������������������������������������������������
Chief Complaint
-: UTI and Bacteremia
Subjective / Review of Systems
Review of Systems: No Fever, No Chills and No Dysuria
Vital Signs / Physical Exam
Vital Signs
Vital Signs
Temp Pulse Resp BP Pulse Ox
97.7 F 65 16 123/86 96
08/24/24 07:44 08/24/24 09:00 08/24/24 09:00 08/24/24 08:08 08/24/24 10:03
Physical Exam
Constitutional: No Acute Distress, Comfortable and Non-toxic
Cardiovascular: Irregular Rate
Pulmonary: Non Labored
Gastrointestinal: Non Tender and Non Distended
Neurological: Awake and Alert
Psychological: Calm
Objective Data
Lab Data
Lab Results
08/22/24 04:41
08/24/24 04:46
APTT 58.0 Sec (23.4-35.0) H 08/21/24 06:27
Estimated Creat Clear 122 ml/min 08/24/24 04:46
Lactic Acid Cancelled 08/15/24 18:15
Total Bilirubin 0.8 mg/dl (0.2-1.3) 08/24/24 04:46
AST 83 U/L (14-36) H 08/24/24 04:46
ALT 67 U/L (0-35) H 08/24/24 04:46
Alkaline Phosphatase 142 U/L (38-126) H 08/24/24 04:46
Most recent labs reviewed.
Micro Results:
08/17/24 17:12 Blood Culture - Final
Blood/Venous No Growth - Final Report
08/17/24 16:46 Blood Culture - Final
Blood/Venous No Growth - Final Report
08/15/24 14:00 Blood Culture - Final
Blood/Venous Escherichia coli
Gram Stain - Final
08/16/24 08:20 Blood Culture - Final
Blood/Venous No Growth - Final Report
08/15/24 14:21 Blood Culture - Final
Blood/Venous No Growth - Final Report
08/15/24 12:15 Urine Culture - Final
Urine Escherichia coli
08/15/24 14:00 Influenza Types A & B (DOMENICO) - Final
Nasal Swab Negative for Influenza A & B, NAAT
Negative results must be combined with clinical observations
and patient history.
Nucleic Acid Amplification test (NAAT)performed on the
[employer] platform.
Blood Culture Preliminary 08/15/24-1400
Organism 1 Escherichia coli
1. Escherichia coli
M.I.C. RX
--------- ---
Amoxicillin/Potas. Clavulanate <=8/4 S
Ampicillin >16 R
Ampicillin/Sulbactam 16/8 I
Aztreonam <=4 S
Cefazolin <=2 S
Ertapenem <=0.5 S
Ciprofloxacin <=0.25 S
Gentamicin <=2 S
Meropenem <=1 S
Piperacillin/Tazobactam <=8 S
Tetracycline >8 R
Tobramycin <=2 S
Trimethoprim/Sulfamethoxazole >/ R
Imaging:
08/15/2024 CT abdomen/pelvis: Bilateral nonobstructing renal calculi. Left renal cyst noted. No hydronephrosis noted. Hepatomegaly with fatty infiltration. Diverticulosis without evidence of diverticulitis. Please see full dictation for
additional detail.
--- NOTE | 2024-08-24 12:47 | CM ---
Patient with Dx sepsis due to UTI, Paroxysmal A fib with RVR. Room air. Telemetry - NSR. Home O2 Assessment today - no O2 needed.
Met with patient who was preparing for d/c. The patient says she feels ready to go home today. She expressed appreciation for the great care by the nursing staff. Her friend will provide a ride home today.
No CM d/c needs identified.
Plan home today.
--- NOTE | 2024-08-24 17:39 | PTCARENOTE ---
Assumed care of patient at beginning of this shift from previous RN; SR on monitor. Able to ambulate in room without difficulty. Patient discharged at this time. When giving d/c instructions, patient stated she does not have a PCP; d/c instructions
state to have lab work drawn in 2-3 days via PCP. This nurse notified Dr Doyle via TT who contacted Dr Monet; patient set up to see resident outpatient as PCP. Instructions given to both patient and her using teach back method for
medications; both verbalized understand of meds on hold and importance of follow up for lab work. stated they are able to get meds at pharmacy on the way home. See worklist for full assessment and vital signs.
== END 2024-08-24 17:52 | disposition home or self-care (01) | DRG 872 ==
LOC: IMU 17:05
PROVIDERS: Emergency Medicine; Internal Medicine; Nurse Practitioner; Nurse Practitioner Family; Physician Assistant Medical; Student in an Organized Health Care Education/Training Program; ADMITTING PHYSICIAN Internal Medicine; ATTENDING PHYSICIAN Hospitalist; CONSULT PHYSICIAN Internal Medicine Infectious Disease; EMERGENCY PHYSICIAN Student in an Organized Health Care Education/Training Program; OTHER PHYSICIAN Internal Medicine Cardiovascular Disease
PROC: B24BZZ4 Ultrasonography of Heart with Aorta, Transesophageal (ICD-10-PCS; 2024-08-22)
PROC: 5A2204Z Restoration of Cardiac Rhythm, Single (ICD-10-PCS; 2024-08-22)
DX: A41.51 Sepsis due to Escherichia coli [E. coli] (principal); N12 Tubulo-interstitial nephritis, not specified as acute or chronic; Z11.52 Encounter for screening for COVID-19; E87.6 Hypokalemia; I10 Essential (primary) hypertension; E21.3 Hyperparathyroidism, unspecified; F32.A Depression, unspecified; F41.9 Anxiety disorder, unspecified; E78.00 Pure hypercholesterolemia, unspecified; I48.0 Paroxysmal atrial fibrillation; I48.91 Unspecified atrial fibrillation; E66.9 Obesity, unspecified; Z68.34 Body mass index [BMI] 34.0-34.9, adult; K57.30 Diverticulosis of large intestine without perforation or abscess without bleeding; K76.0 Fatty (change of) liver, not elsewhere classified; N20.0 Calculus of kidney; N28.1 Cyst of kidney, acquired; Z79.82 Long term (current) use of aspirin; Z79.899 Other long term (current) drug therapy; Z87.440 Personal history of urinary (tract) infections; Z87.442 Personal history of urinary calculi
CPT/HCPCS: 71046; 74176; 80048; 80053; 81003; 81015; 82248; 83605; 83735; 84443; 85025; 85027; 85730; 87040; 87077; 87086; 87149; 87186; 87205; 87502; 87811; 92960; 93005; 93306; 93312; 93320; 93325; 96361; 96374; 96375; 99285

== ENCOUNTER 2025-03-16 19:32 | Inpatient (IN) | payer OTHER, SELFPAY ==
[2025-03-16 16:29] VITALS: BP 176/98
[2025-03-16 17:03] LABS: Urine Character Clear (Clear)
[2025-03-16 17:09] VITALS: BP 134/84
[2025-03-16 17:14] LABS: Urine Red Blood Cell 0-2 /HPF (0-2)
[2025-03-16 17:19] LABS: Hematocrit 45.1 % (37.0-47.0); Hemoglobin 15.3 g/dL (12.0-16.0); Mean Corp Hgb Conc. 33.9 g/dL (33.0-37.0); Mean Corpuscular Volume 92.8 fL (81.0-99.0); Nucleated Red Blood Cells % 0 %; Platelet Count 251 10^3/uL (130-400); Red Cell Dist. Width 13.4 % (11.5-14.5)
[2025-03-16 17:34] LABS: ALT (SGPT) 36 U/L (0-35); AST (SGOT) 32 U/L (14-36); Albumin 5.3 g/dl (3.5-5.0); Alkaline Phosphatase 83 U/L (38-126); Blood Urea Nitrogen 12 mg/dl (7-17); Calcium 10.3 mg/dl (8.4-10.2); Carbon Dioxide 26 mmol/L (22-30); Chloride 103 mmol/L (98-107); Glucose 113 mg/dl (70-99); Potassium 3.8 mmol/L (3.5-5.1); Sodium 142 mmol/L (135-145); Total Protein 8.3 g/dl (6.3-8.2); eGFR > 60.00
--- NOTE | 2025-03-16 17:37 | ED.GENMED ---
History of Present Illness
General
Chief Complaint: Urinary Symptoms
Source: patient, records and physician
Time Seen by Provider: 03/16/25 16:48
History of Present Illness
History of Present Illness:
64-year-old female with past medical history of hypertension, hyperlipidemia, frequent urinary tract infections and a previous history of urosepsis presenting to the emergency department for evaluation at the request of the primary care provider for
evaluation of a multidrug-resistant urinary tract infection. Patient started with symptoms of a UTI including dysuria and frequency about 6 days ago, started on Macrobid, culture came back positive for MRSA with resistance to most antibiotics
except for IV antibiotics according to the patient. Her primary care provider contacted her today who recommended she come to the ER be further evaluated. Patient notes today still feeling unwell and that last night she had a low-grade fever with
a Tmax of 100. States she feels similar as to when she started with urosepsis back earlier this year.
Past History
Past History
ED Past Medical History: HTN, Hypercholesterolemia and Psychiatric
ED Past Surgical History: Gynecological, Tonsilectomy and Urological
Social History
Tobacco: Non-smoker
Alcohol: Occasional
Drug: None
Personal:
Living: with family
Review of Systems
Review of Systems
All Other Systems: ROS reviewed and negative except as documented in HPI and ROS
Phy Exam
Physical Exam
Physical Exam:
GENERAL: Alert , in no apparent distress
EYE: clear conjunctiva b/l
HEAD: NCAT
ENT: mmm.
CARDIAC: Regular rate and rhythm .
LUNGS: Clear breath sounds bilaterally, no acute respiratory distress, no wheezes/rales/rhonchi
ABDOMEN: Soft, without focal tenderness, no r/g, no cvat
NEUROLOGICAL: Alert and oriented
SKIN: Warm and dry, skin intact.
MUSCULOSKELETAL: No edema, well perfused.
PSYCH: Normal and appropriate interaction.
Scores
Heart Failure Risk
Heart Failure Risk Score: Not Applicable
Heart Score for Chest Pain Patients
STEMI patient?: Not applicable
Withdrawal Assessment of Alcohol
Withdrawal Assessment Completed?: Not applicable
Course
Orders/Labs/Results
Orders:
Orders
03/16/25 16:37
Urinalysis Reflex To Culture Urgent
Date Specimen was Collected: 03/16/25
Time Specimen was Collected: 16:33
Urine Microscopic Reflex Cult Urgent
03/16/25 17:06
Complete Blood Count/With Diff Urgent
Comprehensive Metabolic Panel Urgent
Lactic Acid Q4H
Comment: CANCEL 2nd LACTIC ACID IF 1st LACTIC ACID IS LESS THAN 2
Blood Culture Q30M
DAYN Source: Blood/Venous
Specimen Description:
Blood Culture Q30M
DANY Source: Blood/Venous
Specimen Description:
03/16/25 17:07
CT Abd/pel Without Iv Or Oral Urgent
Comment:
Reason For Exam: right flank pain, UTI, hx stones
03/16/25 17:42
Vancomycin [Vancocin] 1,500 mg 0.9% Sodium Chloride 500 ml [Nss] 500 ml IV NOW
03/16/25 17:56
Vancomycin [Vancocin] 2,000 mg 0.9% Sodium Chloride 500 ml [Nss] 500 ml IV NOW
03/16/25 19:15
Admit/Transfer Patient As Directed
Co-Sign Provider:
Level of Care: Inpatient admission
Assign to:: Medical/Surgical
Physician / Group: Juvencio Morales
Diagnosis: UTI
Reason for Hospitalization: UTI
Expected length of stay greater than two midnights?: Yes
ELOS- Estimated Length of Stay in days: 3
I certify the patient meets the requirements for IP care: Yes
PRN Pain Medication Management As Directed
May give lesser potent ordered pain med per pt: Yes
preference::
Protocol:: Medication orders for pain may be administered in a
manner that supports deferring to patient preference
when the pt is:
- Requesting an ordered lesser potent pain medication.
Least to most potent pain medications are defined
as: acetaminophen < NSAID < tramadol < opioids
(morphine, oxycodone, hydromorphone).
- Requesting a lesser dose of the same medication IF
ORDERED.
- Requesting a less intrusive route of administration
if both routes are prescribed by the provider (PO <
IV).
03/16/25 19:16
Code Status As Directed
Resuscitation Status: Full Code
03/16/25 21:00
Lactic Acid Q4H
Comment: CANCEL 2nd LACTIC ACID IF 1st LACTIC ACID IS LESS THAN 2
03/16/25 21:06
Acetaminophen [Tylenol] 650 mg PO Q4HPRN PRN
Apixaban [Eliquis] 5 mg PO BID
VANCOMYCIN Pharmacy to Dose [VANCOCIN Pharmacy to Dose] 1 each Pharmacy To Prepare [Call Pharmacy To Prepare] 0 ml IV PER PROTOCOL
estradiol 1 appful TOPICAL Q98H
03/16/25 21:06
Activity As Directed
Activity Level: Ambulate
Vital Signs As Directed
Frequency: Per unit guidelines
Weight As Directed
Frequency: Once
Comment: on admission
03/16/25 22:00
Buspirone [Buspar] 10 mg PO TID
03/17/25 Breakfast
Regular
03/17/25 08:00
Amlodipine [Norvasc] 5 mg PO DAILY
Atorvastatin [Lipitor] 10 mg PO DAILY
Metoprolol Xl [Toprol Xl] 25 mg PO DAILY
Abnormal Lab Results
03/16/25 03/16/25
16:37 17:06
MCH 31.5 H pg
(27.0-31.0)
Abs Immat Gran (auto) 0.1 H 10^3/uL
(0-0.05)
Absolute Neuts (auto) 6.6 H 10^3/uL
(1.4-6.5)
Absolute Monos (auto) 0.7 H 10^3/uL
(0.1-0.6)
Creatinine 0.5 L mg/dL
(0.6-1.0)
Glucose 113 H mg/dl
(70-99)
Calcium 10.3 H mg/dl
(8.4-10.2)
Total Bilirubin 1.9 H mg/dl
(0.2-1.3)
ALT 36 H U/L
(0-35)
Total Protein 8.3 H g/dl
(6.3-8.2)
Albumin 5.3 H g/dl
(3.5-5.0)
Ur Occult Blood Reflex 1+ A
(Negative)
Urine Bacteria (Reflex) Few A
(Negative)
03/16/25 17:06
03/16/25 17:06
Vital Signs
Initial and Last Documented VS:
Initial Vital Signs
Temp Pulse Resp BP Pulse Ox
98.6 F 84 20 176/98 98
03/16/25 16:29 03/16/25 16:29 03/16/25 16:29 03/16/25 16:29 03/16/25 16:29
Last Documented Vital Signs
Temp Pulse Resp BP Pulse Ox
98.6 F 63 15 148/70 94
03/16/25 16:29 03/16/25 21:45 03/16/25 21:45 03/16/25 21:00 03/16/25 21:45
MDM/Problems Addressed
Differential Diagnosis Includes:
Cystitis
Pyelonephritis
Infected Kidney stone
Bacteremia
LANETTE
Viral syndrome
MDM/Problems Addressed:
64-year-old female presenting to the ER for evaluation of a reported multidrug-resistant urinary tract infection. Has been on Macrobid for the last few days, minimal relief of symptoms, received a phone call from primary care provider today
notifying her she should come to the emergency for admission for IV antibiotics. Reported fever of 100 last night, afebrile and hemodynamically stable here and overall well-appearing. Will order labs and cultures. Attempting to obtain the urine
culture report as this was done as an outpatient. Will order antibiotics based off of this culture and trend cultures here. Plan for admission. At the end of the examination patient did report right-sided flank pain and given her history of
kidney stones will obtain a CT scan to evaluate for possible obstructive uropathy/kidney stone.
*Radiology
Radiology exam reviewed: radiology read reviewed
*Pulse Oximetry
SaO2: 95
Oxygen Mode of Delivery: Room air
Patient hypoxic: no
*Critical Care Note
Total Time (30-74mins, 75-104mins- exclusive of procedures): Not Applicable
Data Reviewed
Review of Other/Old Records Reveals: Labs, Records and Discharge Summary
Source: patient and records
Patient Management
Discussion with other providers: Hospitalist and PCP
Escalation/DeEscalation of care consider admission/obs:
Case discussed with patient's primary care provider. I reviewed the urine culture and patient is sensitive to vancomycin for both Enterococcus and MRSA infections. Primary care also noted patient was empirically started on Bactrim but switched to
Macrobid based off of the initial sensitivities but due to the continued symptoms is why she was sent to the emergency. Will initiate the vancomycin IV based off the sensitivities with plan to admit to the hospitalist team and likely need for
infectious disease consultation
ED Attending Note
-
Portions of this chart may have been created with voice recognition software.� Occasional wrong word or��sound alike� substitutions may have occurred due to the inherent limitations of voice recognition software.
Discharge Plan
Departure
Patient Disposition: Admit
Date of Disposition: 03/16/25
Time of Disposition: 18:34
Presentation/result/management discussed w/ accepting MD/DO: Hospitalist
Discharge Problem:
Complicated urinary tract infection
Interventions
Interventions:
*Risk Screen - Suicide Last Done: 03/16/25 16:29
*General Assessment Last Done: 03/16/25 16:29
*Neglect/Abuse Screening Last Done: 03/16/25 16:29
*ED- Fall Risk Assessment Last Done: 03/16/25 17:30
*ED COVID-19 Vaccine History Last Done: 03/16/25 17:30
*ED Influenza Vaccine History Last Done: 03/16/25 17:30
ED-Female Genitourinary Assessment Last Done: 03/16/25 17:30
[2025-03-16 17:48] VITALS: BMI 32.9
[2025-03-16 18:00] VITALS: BP 137/69
[2025-03-16] MEDS: VANCOCIN 540 MG IV (18:16)
--- NOTE | 2025-03-16 18:38 | HPS.HSE ---
Addendum entered and electronically signed by Nadine Morales MD 03/16/25 19:44:
This is an addendum to H&P written by Beverly Isidro on 03/16/2025. �Patient seen examined independently with [employer].
64-year-old female past medical history of frequent UTIs, atrial fibrillation, hypertension, hyperlipidemia, hyperparathyroidism, anxiety/depression, renal calculi, presenting upon request of primary care provider for multidrug-resistant UTI.
�Patient had bladder pressure 2 days ago treated with Bactrim for 3 days and Macrobid for 6 days and comes back for persisting urinary symptoms urine culture showing multidrug-resistant MRSA as well as Enterococcus faecalis. �Low-grade fever of 100
degrees last night.
Vital signs unremarkable.
Labs unremarkable. �Urinalysis unremarkable.
CT abdomen pelvis shows nonobstructing bilateral intrarenal calculi without any other abnormalities.
Patient with persistent urinary tract infection secondary to MRSA/Enterococcus faecalis. �Vancomycin.
Original Note:
Family Physician
-
Family Physician: * NONE
Chief Complaint
-
dysuria
History of Present Illness
Patient is a 64-year-old female with past medical history significant for essential hypertension, hyperlipidemia, atrial fibrillation, hyperparathyroidism, anxiety/depression and Hx renal calculi who presented to [facility] ED for evaluation at request of
primary provider for evaluation of a multidrug-resistant urinary tract infection. Patient reports onset of symptoms was approximately 2 weeks ago with pelvic pressure (common symptom for her at early UTI). She states she did UA and C&S and primary
placed her on Bactrim for 3 days, when she completed it primary called with culture results and started Macrobid. Patient primary requested patient come to ED for treatment as she was not getting relief with Macrobid and would need IV antibiotics.
Denies fever, chills, cough, shortness of breath, chest pain, palpitations, nausea, vomiting, constipation or diarrhea.
Medical History
Past Medical History
Past Medical History: Reports Other
Additional Past Medical History:
essential hypertension
hyperlipidemia
atrial fibrillation
hyperparathyroidism
anxiety/depression
Hx renal calculi
Past Surgical History: Reports Other
Additional Past Surgical History:
parathyroidectomy (2010)
uterine fibroids (2001)
hysterectomy (2001)
Social History
Tobacco: Non-smoker
Alcohol: Occasional (a couple glasses of wine a week )
Drug: None
Personal:
Living: With Family
Employment: Employed
Family History
Family History: Not pertinent
Allergies / Home Medications
Allergies reflects when Allergies were last updated in [facility].
Home Medications with original date entered in [facility]
Allergy/Medication List:
Allergies
Allergy/AdvReac Type Severity Reaction Status Date / Time
codeine Allergy Itching Verified 03/16/25 16:28
Home Medications
amlodipine 5 mg tablet 5 mg PO DAILY Blood Pressure 08/15/24
Held on 08/24/24. Instructions: Resume on 08/31/24. Discuss with your PCP before resuming this medication.
atorvastatin 10 mg tablet 10 mg PO DAILY High Cholesterol 08/15/24
Held on 08/24/24. Instructions: Resume on 09/14/24. Discuss with your PCP before resuming this medication. You will need to have your AST and ALT recheck before resuming this medication.
estradiol 0.01% (0.1 mg/gram) vaginal cream 1 appful vaginal Q98H Hormonal Agent 08/15/24
sulfamethoxazole 800 mg-trimethoprim 160 mg tablet 1 tab PO DAILYPRN PRN sexual intercourse 08/15/24
Held on 08/24/24. Instructions: Resume on 09/14/24. Discuss with your PCP before resuming this medication.
valsartan 160 mg tablet 160 mg PO DAILY Blood Pressure 08/15/24
Held on 08/24/24. Instructions: Resume on 09/07/24. Discuss with your PCP before resuming this medication.
apixaban 5 mg tablet (Eliquis) 5 mg PO BID #60 tabs 08/24/24
cefdinir 300 mg capsule 300 mg PO Q12 #11 caps 08/24/24
metoprolol succinate 25 mg tablet,extended release 24 hr 25 mg PO DAILY #30 tabs 08/24/24
polyethylene glycol 3350 17 gram oral powder packet 17 g PO DAILY #30 ea 08/24/24
potassium chloride 20 mEq oral packet (Klor-Con) 20 meq PO DAILY #30 ea 08/24/24
Review of Systems
-
History Source: Patient
Constitutional: Denies Fever or Chills
EENT: Denies Sore Throat
Respiratory: Denies Cough or Trouble Breathing
Cardiac: Denies Chest Pain or Palpitations
Abdomen/GI: Denies Abdominal Pain, Nausea, Vomiting or Diarrhea
: Reports Frequency and Urgency; Denies Dysuria
Musculoskeletal: Denies Joint Pain
Skin: Denies Rash
Neurological: Denies Dizzy, Headache, Weakness or Numbness
Endocrine: Denies Polyuria or Polydipsia
Physical Exam
Vital Signs
Vital Signs
Temp Pulse Resp BP Pulse Ox
98.6 F 72 21 134/84 95
03/16/25 16:29 03/16/25 17:15 03/16/25 17:15 03/16/25 17:09 03/16/25 17:42
Physical Exam
General: Well Developed, Well Nourished, No Apparent Distress, Comfortable and Conversant
HEENT: NormoCephalic, Moist mucous membranes, PERRLA, Nose Appears Normal and Ears Appear Normal
Respiratory: Clear and Non Labored Respirations; No Wheezes, Rales or Rhonchi
Cardiac: S1/S2 and Regular Rhythm; No Murmur or Peripheral Edema
GI: Soft, Non Tender, Non Distended and Normal Bowel Sounds
Musculoskeletal: No Clubbing, No Cyanosis and No Edema
Skin: Warm and IV/Catheter Site
Neuro: Awake and AO x 3
Psych: Calm and Intact Judgment/Insight
Laboratory Results
-
03/16/25 17:06
03/16/25 17:06
Laboratory Results
Lactic Acid 1.3 mmol/L (0.7-2.0) 03/16/25 17:06
Total Bilirubin 1.9 mg/dl (0.2-1.3) H 03/16/25 17:06
AST 32 U/L (14-36) 03/16/25 17:06
ALT 36 U/L (0-35) H 03/16/25 17:06
Alkaline Phosphatase 83 U/L (38-126) 03/16/25 17:06
Data Reviewed
-
CT Scan: Report Reviewed by me (Abd/Pel: Nonobstructing bilateral intrarenal calculi. No ureteral calculus, bilaterally, and no obstructive uropathy. No bladder calculus. Diverticulosis without acute diverticulitis. No bowel obstruction.)
Lab Data: Labs Reviewed by me
Impression/Plan
-
IMPRESSION/PLAN:
#urinary tract infection
treated out patient with Bactrim and then Macrobid and continues with symptoms
out patient culture positive for MRSA
labs unremarkable
UA: unremarkable
Urine Cx: pending
Blood Cx: pending
Abd/Pel CT: Nonobstructing bilateral intrarenal calculi. No ureteral calculus, bilaterally, and no obstructive uropathy. No bladder calculus.
Diverticulosis without acute diverticulitis.
No bowel obstruction.
- Admit to med/surg
- IV Vanco
- supportive care
#essential hypertension
- continue metoprolol
#hyperlipidemia
- continue atorvastatin
#atrial fibrillation
- continue Eliquis and metoprolol
#anxiety/depression
- continue buspirone
#Hx renal calculi
Code status: full code
DV prophylaxis: Eliquis
[2025-03-16 19:00] VITALS: BP 144/87
[2025-03-16 20:00] VITALS: BP 143/70
[2025-03-16 21:00] VITALS: BP 148/70
--- NOTE | 2025-03-16 21:48 | PHA.VAN.IN ---
Assessment
- Assessment
Renal Function: Appears similar to baseline
AUC Dosing Plan
- Dosing Variables
Dosing Weight (kg): 101
Dosing CrCl (ml/min): 120
Vd coefficient (L/kg): 0.7
- Empiric Dosing
Initial / Loading Dose: VANCO 2000 MG IV ~ 1800
Maintenance Regimen: VANCO 1500 MG IV Q12H
Estimated AUC (mcg*h/mL): 440
Estimated Peak (mcg*h/mL): 29.8
Estimated Trough (mcg/ml): 10
Estimated Half Life (H): 6.7
Pharmacokinetics Vancomycin I
- -
Patient Age: 64
Patient Sex: Female
Vancomycin Day #: 1
Indication: Genito-Urinary Tract
Requesting Provider: Sanna MENDEZ
Height / Weight:
Height 5 ft 9 in
Actual Weight 101 kg
Pertinent Past Medical History: Multidrug-resistant UTI.
- Vital Signs / Lab Results
Temp Pulse Resp BP Pulse Ox
98.6 F 63 15 148/70 94
03/16/25 16:29 03/16/25 21:45 03/16/25 21:45 03/16/25 21:00 03/16/25 21:45
Lab Results - Hematology
03/16/25
17:06
WBC 10.1
Lab Results - Chemistry
03/16/25
17:06
BUN 12
Creatinine 0.5 L
Albumin 5.3 H
03/16/25
17:06
Lactic Acid 1.3
Lab Results - Urine
03/16/25
16:37
Urine Nitrite (Reflex) Negative
Leukocyte Esterase Rfl Negative
Urine WBC (Reflex) 3-5
Ur Squamous Epith Cells 11-15
Urine Bacteria (Reflex) Few A
[2025-03-16] MEDS: BUSPAR 10 MG PO (21:55)
[2025-03-16] MEDS: ELIQUIS 5 MG PO (21:55)
[2025-03-17 06:37] VITALS: BP 148/85
[2025-03-17] MEDS: VANCOCIN 530 MG IV (06:38)
[2025-03-17 07:36] VITALS: BP 142/74
[2025-03-17] MEDS: ELIQUIS 5 MG PO (08:29)
[2025-03-17] MEDS: TOPROL XL 25 MG PO (08:29)
[2025-03-17] MEDS: NORVASC 5 MG PO (08:29)
[2025-03-17] MEDS: LIPITOR 10 MG PO (08:29)
--- NOTE | 2025-03-17 08:36 | PHA.VAN.FU ---
Vancomycin Assessment / Plan
- Assessment
Renal Function: No New Labs Today
- Dosing Plan
Continue: Vanc 1500mg Q12H
- Monitoring Plan
No level(s) ordered at this time: consider levels in next few days
- Follow Up
Pharmacy will continue to follow.
Vancomycin Follow UP
- -
Patient Age: 64
Patient Sex: Female
Vancomycin Day #: 2
Indication: Genito-Urinary Tract
Requesting Provider: Sanna MENDEZ
Pertinent Antimicrobial Allergies:
no pertinent antibiotic allergies
Height / Weight:
Height 5 ft 9 in
Actual Weight 101 kg
Pertinent Past Medical History: BMI ~33
- Vital Signs / Lab Results
Temp Pulse Resp BP Pulse Ox
97.9 F 62 16 142/74 98
03/17/25 07:36 03/17/25 07:36 03/17/25 07:36 03/17/25 07:36 03/17/25 07:36
Lab Results - Hematology
03/16/25
17:06
WBC 10.1
Lab Results - Chemistry
03/16/25
17:06
BUN 12
Creatinine 0.5 L
Albumin 5.3 H
03/16/25 03/16/25
17:06 21:00
Lactic Acid 1.3 Cancelled
Lab Results - Urine
03/16/25
16:37
Urine Nitrite (Reflex) Negative
Leukocyte Esterase Rfl Negative
Ur Squamous Epith Cells 11-15
--- NOTE | 2025-03-17 08:36 | W.PN.HOSP.TC ---
Addendum entered and electronically signed by Alyssa Boone MD 03/17/25 13:18:
Attending�addendum:
I saw and evaluated the patient. I reviewed the resident�s note and agree with findings and plan as documented in the resident�s note.��patient seen and examined at bedside, denies any chest pain or shortness of breath, no abdominal pain, no nausea,
no vomiting, no diarrhea or constipation.
Complaining of burning urinary symptoms.
Seen by infectious ease recommended to discontinue antibiotic and obtain urology consult.
Physical�exam:
GENERAL : Patient is awake, alert, oriented x3
HEENT: Nonicteric sclerae, PERRLA, EOMI. Oropharynx clear. Moist mucous membranes. Conjunctivae appear well perfused.
CHEST: Chest wall is nontender.
HEART: Regular rate and rhythm without murmurs.
LUNGS: Clear to auscultation bilaterally.
ABDOMEN: Soft, positive bowel sounds, nontender, no organomegaly.
RECTAL: Deferred.
MUSCLES/EXTREMITIES: No abnormal range of motion, no swelling.SKIN: No rash, no excessive bruising, petechiae, or purpura.
NEUROLOGIC: Cranial nerves II-XII intact without motor/sensory deficit.
�
Assessment/plan:
Multidrug-resistant UTI.
So far urinalysis negative.
Was given vancomycin in the ER.
Infectious disease commending to discontinue antibiotic
Atrial fibrillation.
Continue Eliquis/metoprolol
Urology evaluation for UTI
CODE STATUS: Full code
DVT prophylaxis: Eliquis
Diet: Regular diet
Disposition: Urology evaluate
�
Total time spent on today�s encounter was 51 minutes which included time spent in counseling the patient/family regarding diagnosis and treatment plan as listed above, goals of care, and symptom management. Case was discussed with nursing staff,
specialists, and care coordinators/case management. All labs and imaging personally reviewed by me. Remainder the time spent in detailed review of previous records, lab data, imaging, and other medical provider documentation.
Original Note:
Today's Communication/Plan
-
Discontinue Vancomycin. Urology consult vs. outpatient follow up.
Assessment / Plan
Assessment / Plan
Pauline Marks is a 64F w/ PMHx HTN, atrial fibrillation on Eliquis, HLD, RASHIDA, nephrolithiasis and recurrent UTIs (w/ a hx of sepsis 2/2 pyelo in 07/2024) who presented with 2 weeks of pelvic pressure with outpatient treatment of UTI with 3 days of
Bactrim and 6 days of Macrobid without resolution of symptoms. UA revealed MDR enterococcus and MRSA. Patient presented to the ED for continued symptoms despite antibiotic course and was started on IV vancomycin while awaiting ID consultation.
1. MDR UTI
- UA bland; UCx pending
- Patient started on IV Vancomycin in ED
- Appreciate ID recommendations; would d/c vancomycine and consider urology evaluation.
- WBC normal, no fevers here
2. Hx Atrial Fibrillation
- Continue Metoprolol, Eliquis
3. Hx HTN
- Continue BB, CCB
4. Hx HLD
- Continue statin
5. Hx RASHIDA
- Continue Buspar
6. Hyperbilirubinemia
- Repeat CMP, fractionate Bili
Diet: Regular
Code: Full Code
DVT: Lovenox
Anticipated Discharge: Within 24 hours
Subjective/Interval History
-
Date of Service: March 17, 2025
Patient seen and examined while resting comfortably in bed. Pauline is known to me, but since this is my first time seeing her this admission, performed full history and physical.
Briefly, patient complains of progressively worsening suprapubic pressure as well as increased urinary frequency, that is worse at night. Patient states that the night prior to arrival, she thinks she must have been getting up every hour to urinate.
She also had a low-grade fever with Tmax of 100. Patient had been dealing with these symptoms for approximately 9 days with outpatient urinalysis revealing UTI. Patient was initially started on Bactrim empirically with transition to Macrobid once
sensitivities resulted. Patient continued to have symptoms, and no other antibiotic options per sensitivities so she was advised to come to the ED for IV abx and infectious disease evaluation.
Overnight, patient endorses continued pressure, but otherwise no acute complaints. Denies dysuria, hematuria.
Objective Data
-
Vital Signs:
Vital Signs
Temp Pulse Resp BP Pulse Ox
97.9 F 62 16 142/74 98
03/17/25 07:36 03/17/25 07:36 03/17/25 07:36 03/17/25 07:36 03/17/25 07:36
Review of Systems
-
History Source: Patient
All other systems: Reviewed and negative
Physical Exam
-
General: Well Developed, Well Nourished, No Apparent Distress and Comfortable
HEENT: Normocephalic, Atraumatic and Moist Mucous Membranes
Respiratory: Clear to Auscultation and Non Labored Respirations; Negative Wheezes, Rales, Rhonchi or Crackles
Cardiac: Regular Rhythm and S1/S2
GI: Soft, Nondistended and Tender (mild, suprapubic)
Genito-urinary: No Costovertebral Tender
Musculoskeletal: No Clubbing, No Cyanosis and No Edema
Skin: Warm
Neuro: Awake, Alert, Oriented and No Motor Deficits
Psych: Calm
Data Reviewed
-
CT Scan: Image personally visualized and interpreted, Report Reviewed by me and Discussed with Patient
Labs: Labs Reviewed by me and Discussed with Patient
--- NOTE | 2025-03-17 10:49 | EDCM ---
CM reviewed chart and met with pt bedside in ED. Lives with her in one story home, no MAXI.
Independent in ADLs, personal care and ambulation at baseline. No assistive devices, only DME is BP cuff.
Confirms prescription coverage.
No hx VN or SNF
PCP: [facility]
Pharmacy: [facility] in [place]
Anticipate discharge home, CM will continue to follow for all discharge planning needs.
--- NOTE | 2025-03-17 11:00 | CON.ID ---
Consultation
-
Date/Time Consultation Requested: 03/17/2025 0715
Date/Time Consultation Performed: 03/17/2025 1030
Requesting Provider: Dr. Tong
Performing Provider: Dr. Ramirez
Reason for Consultation: Urinary tract infection
Chief Complaint / Past History
History of Present Illness
Pauline Marks is a 64-year-old female being evaluated at the request of Dr. Tong in regards to urinary tract infection. History is obtained from chart review, along with patient interview and review of old records contained the hospital EMR
system.
The patient is known to the Infectious Diseases service, having been seen earlier in the ER for pyelonephritis. At that time, cultures ultimately grew out E. coli and she was discharged to home to complete a course of cefdinir.
She presents back to the hospital for ongoing urinary discomfort. She reports that approximately 2 to 3 weeks ago she developed urinary 'pressure' along with a feeling of 'heaviness' and the feeling of feeling rundown. At the time she denied any
burning but did feel that she was having some urinary frequency. She was seen at a physician's office and a urinalysis was performed and she was placed on an empiric 3-day course of Bactrim, but when the culture revealed the presence of reported
MRSA, she was changed to Macrobid.
Despite a course of antibiotics, she reports ongoing frequency and 2 nights ago reported a temperature to 100 degrees. Because of ongoing urinary discomfort she presented to the hospital for further evaluation. A urine culture has been obtained.
At present, the patient reports continued 'fullness', but no dysuria or hematuria.
Past History
Additional Past Medical History:
HTN
Dyslipidemia
Hyperparathyroidism
Anxiety/depression
Nephrolithiasis
Additional Past Surgical History:
parathyroidectomy (2010)
uterine fibroids (2001)
hysterectomy (2001)
Allergy History:
codeine Allergy (Verified 03/16/25 16:28)
Itching
Medications Reviewed: Yes
Current Antibiotics:
Vancomycin
Social History
Tobacco: Non-Smoker
Alcohol: Occasional
Drug: None
Employment: Employed
Family History
Family History: Not Pertinent
Review of Systems
Vital Signs
Temp Pulse Resp BP Pulse Ox
97.9 F 62 16 142/74 98
03/17/25 07:36 03/17/25 07:36 03/17/25 07:36 03/17/25 07:36 03/17/25 07:36
Physical Exam
Physical Exam
Constitutional: No Acute Distress, Comfortable and Non-toxic
Eyes: No Conjunctival Hemorrhage and Sclera Anicteric
Oral: No Thrush and No Ulcers
Cardiovascular: Regular Rate and S1/S2; Negative S3/S4
Pulmonary: Clear; Negative Wheezes, Rales or Rhonchi
Gastrointestinal: Soft, Non Tender, Non Distended, Normal Bowel Sounds, No Rebound and No Guarding
Genito-Urinary: Negative [place], Suprapubic Tenderness or CVA Tenderness
Extremities: Negative Edema, Cyanosis or Erythema
Neurological: Awake and Alert
Psychological: Calm
Lab / Diagnostic Study Results
03/16/25 17:06
03/16/25 17:06
Abs Immat Gran (auto) 0.1 10^3/uL (0-0.05) H 03/16/25 17:06
Absolute Neuts (auto) 6.6 10^3/uL (1.4-6.5) H 03/16/25 17:06
Absolute Lymphs (auto) 2.7 10^3/uL (1.2-3.4) 03/16/25 17:06
Absolute Monos (auto) 0.7 10^3/uL (0.1-0.6) H 03/16/25 17:06
Absolute Basos (auto) 0.1 10^3/uL (0-0.2) 03/16/25 17:06
Immature Gran % 0.5 % (0-0.5) 03/16/25 17:06
Neutrophils % 65.0 % (42.2-75.2) 03/16/25 17:06
Lymphocytes % 27.1 % (20.5-51.1) 03/16/25 17:06
Monocytes % 6.5 % (1.7-9.3) 03/16/25 17:06
Eosinophils % 0.4 % (0-6) 03/16/25 17:06
Basophils % 0.5 % (0-2) 03/16/25 17:06
Lactic Acid Cancelled 03/16/25 21:00
Ur Squamous Epith Cells 11-15 /LPF (Few) 03/16/25 16:37
Microbiology Results
Micro:
03/16/25 17:06 Blood Culture - Pending
Blood/Venous
03/16/25 17:06 Blood Culture - Pending
Blood/Venous
UA
03/16/25
16:37
Urine Color Yellow
Urine Clarity Clear
Urine pH 7.0
Ur Specific [place] 1.005
Urine Ketones Negative
Ur Occult Blood Reflex 1+ A
Urine Nitrite (Reflex) Negative
Urine Bilirubin Negative
Urine Urobilinogen Negative
Leukocyte Esterase Rfl Negative
Urine RBC 0-2
Urine WBC (Reflex) 3-5
Ur Squamous Epith Cells 11-15
Urine Bacteria (Reflex) Few A
Urine Glucose Negative
Urine Albumin (Reflex) Negative
03/07/2025 CULTURE, URINE, ROUTINE ([facility])
Micro Number: [id number]
Test Status: Final
Specimen Source: Urine
Specimen Quality: Adequate
Result: 50,000-99,000 CFU/mL of Enterococcus faecalis
50,000-99,000 CFU/mL of
Methicillin resistant Staphylococcus aureus (MRSA)
E.faecalis MRSA

INT DANY INT DANY
AMPICILLIN S <=2 *
CIPROFLOXACIN * R >=8
GENTAMICIN * S <=0.5
LEVOFLOXACIN * R >=8
MOXIFLOXACIN * R >=8
NITROFURANTOIN S <=16 S <=16
OXACILLIN * R NR 1
TETRACYCLINE * S <=1
TRIMETHOPRIM/SULFA * R >=320
VANCOMYCIN S 2 S 1
Imaging:
03/16/2025 CT abdomen/pelvis without contrast: Nonobstructing bilateral intrarenal calculi. No ureteral calculus, bilaterally, and no obstructive uropathy. No bladder calculus. Diverticulosis without acute diverticulitis. No bowel obstruction.
Assessment / Plan
Urinary discomfort
Reported fever
HTN
Dyslipidemia
Hyperparathyroidism
Anxiety/depression
Nephrolithiasis
Recommendations:
At present, urinalysis without pyuria.
Etiology of bladder discomfort not clear, although without objective symptomatology, infection is less likely.
Outpatient cultures reviewed, with growth of Enterococcus and MRSA, both susceptible to Macrodantin,which the patient has completed a 6-day course.
Would discontinue further vancomycin.
May consider Urological evaluation for further workup of discomfort.
Care Review
Plan reviewed with: Physician (Hospitalist)
[2025-03-17] MEDS: BUSPAR 10 MG PO ×2 (11:30→16:28)
[2025-03-17 14:00] LABS: Hematocrit 42.2 % (37.0-47.0); Hemoglobin 14.5 g/dL (12.0-16.0); Mean Corp Hgb Conc. 34.4 g/dL (33.0-37.0); Mean Corpuscular Volume 91.3 fL (81.0-99.0); Nucleated Red Blood Cells % 0 %; Platelet Count 245 10^3/uL (130-400); Red Cell Dist. Width 13.4 % (11.5-14.5)
[2025-03-17 14:25] LABS: Blood Urea Nitrogen 10 mg/dl (7-17); Calcium 9.7 mg/dl (8.4-10.2); Carbon Dioxide 23 mmol/L (22-30); Chloride 105 mmol/L (98-107); Estimated Creatinine Clearance 120 ml/min; Glucose 129 mg/dl (70-99); Sodium 137 mmol/L (135-145); eGFR > 60.00
[2025-03-17 14:41] VITALS: BMI 32.9
[2025-03-17 14:47] VITALS: BP 149/86; BMI 31.9
--- NOTE | 2025-03-17 15:21 | PTCARENOTE ---
Received pt from ER via WC, accompanied by ER staff. PT AAO x3, MADHAVI well, ambulatory to bed. VSS. On room air- pulseox 97%. Abd obese, soft, to be on regular diet. Pt c/o urine urgency; stated 'It always feels like I have to 'go' '. Denies
hematuria. Afebrile; skin W/D/I. Oriented to 4[place]. CP initiated for MRSA. Currently resting in bed. Will continue to monitor.
--- NOTE | 2025-03-17 16:12 | W.DCSUMMARY ---
Addendum entered and electronically signed by Alyssa Boone MD 03/18/25 08:18:
Attending�addendum:
I saw and evaluated the patient. I reviewed the resident�s note and agree with findings and plan as documented in the resident�s note.��patient seen and examined at bedside, denies any chest pain or shortness of breath, no abdominal pain, no nausea,
no vomiting, no diarrhea or constipation.
Complaining of burning urinary symptoms.
Seen by infectious ease recommended to discontinue antibiotic and obtain urology consult.
Physical�exam:
GENERAL : Patient is awake, alert, oriented x3
HEENT: Nonicteric sclerae, PERRLA, EOMI. Oropharynx clear. Moist mucous membranes. Conjunctivae appear well perfused.
CHEST: Chest wall is nontender.
HEART: Regular rate and rhythm without murmurs.
LUNGS: Clear to auscultation bilaterally.
ABDOMEN: Soft, positive bowel sounds, nontender, no organomegaly.
RECTAL: Deferred.
MUSCLES/EXTREMITIES: No abnormal range of motion, no swelling.SKIN: No rash, no excessive bruising, petechiae, or purpura.
NEUROLOGIC: Cranial nerves II-XII intact without motor/sensory deficit.
�
Assessment/plan:
Multidrug-resistant UTI.
So far urinalysis negative.
Was given vancomycin in the ER.
Infectious disease recommending to discontinue antibiotic
Atrial fibrillation.
Continue Eliquis/metoprolol
Urology evaluation for UTI
CODE STATUS: Full code
DVT prophylaxis: Eliquis
Diet: Regular diet
Disposition: Dc home
�
Total time spent on today�s encounter was 40 minutes which included time spent in counseling the patient/family regarding diagnosis and treatment plan as listed above, goals of care, and symptom management. Case was discussed with nursing staff,
specialists, and care coordinators/case management. All labs and imaging personally reviewed by me. Remainder the time spent in detailed review of previous records, lab data, imaging, and other medical provider documentation.
Original Note:
Documented by User: Isaac Bowman DO, Resident 03/17/25 16:54
Discharge Summary
Discharge Data
Date of Admission: 03/16/25
Date of Discharge: 03/17/25
Total time spent discharging patient (in min): 35
-
Pending Results: Yes
Additional Pending Results:
Urine Culture
Hospital Course
Pauline Marks is a 64 year old female with a past medical history of hypertension, atrial fibrillation, hyperlipidemia, generalized anxiety disorder, nephrolithiasis, and recurrent urinary tract infections with a recent admission in August 2024 for
sepsis secondary to pyelonephritis requiring ICU level care. She presented to the emergency department on 03/16/2025 with progressively worsening bladder pressure for approximately 2 weeks in the setting of outpatient urine cultures positive for
multidrug-resistant Enterococcus and MRSA.
HISTORY OF PRESENT ILLNESS
The patient had been experiencing a pressure-like sensation in the bladder for approximately 2 weeks. Patient endorsed that this feeling was what she experienced when she was admitted to the hospital back in August 2024. Approximately 10 days ago,
the patient had an outpatient urinalysis which was suspicious for urinary tract infection and reflexed to culture. She was initially started on empiric Bactrim, however when sensitivities resulted showing multidrug-resistant Enterococcus and
methicillin-resistant Staph aureus, patient was transition to Macrobid for 6 days. Her symptoms continued, and on the day prior to arrival, patient had low-grade fevers with a Tmax of 100.0. She contacted her primary care physician who suggested
that she come to the emergency department for infectious disease consultation and intravenous antibiotics.
ED COURSE
On presentation to the emergency department, the patient was afebrile with stable vital signs and a normal physical exam. Her CBC was unremarkable. Complete metabolic panel showed normal electrolytes and kidney function, however total bilirubin
was mildly elevated at 1.9 (upper limit of normal 1.3). This was fractionated later on in the course with a direct bilirubin of 0.6. ALT was also mildly elevated at 36 (upper limit of normal 35). Otherwise, urinalysis was bland with few bacteria
in the urine but no nitrites, leukocytes, or leukocyte esterase. Urine culture was still sent in the context of her history but had not resulted by the time of her discharge. CT of the abdomen pelvis was performed which only showed nonobstructing
bilateral intrarenal calculi without ureteral calculi, and diverticulosis without acute diverticulitis. Patient was started on vancomycin in the setting of outpatient urine cultures and admitted for evaluation by infectious disease.
HOSPITAL COURSE
Patient was seen by infectious disease early in the morning, who felt that given a lack of objective symptomatology, infection was not likely. He reviewed outpatient cultures with growth of Enterococcus and MRSA which were both susceptible to
Macrodantin and felt okay with the already completed 6-day course. The patient continued to experience bladder pressure without any other abnormalities and physical exam or laboratory studies. Urology was consulted and they also felt that
additional workup was unnecessary in the hospital given symptoms, vitals, laboratory results, imaging, and course of present illness. The patient was started on Pyridium for urinary tract analgesia. She felt comfortable returning to home and
following up in the outpatient setting for additional recommendations. The patient was discharged on 03/17/2025
DISCHARGE RECOMMENDATIONS
Follow up with primary care provider in less than one week
Urine cultures and blood cultures sent in the hospital still pending.
Evaluate symptoms after 3 days of treatment with Pyridium.
Patient had mild bilirubinemia and transaminitis on lab studies without associated symptomatology. Repeat laboratory studies for resolution.
May consider trying to facilitate re-establishment of care with Dr. Jaimes's office.
Discharge Plan
-
Patient Disposition: Home (Routine Discharge)
Discharge Diagnosis/Procedures: *Bladder Discomfort
*Recent Multidrug Resistant Urinary Tract Infection
*Non-obstructing Nephrolithiasis
*Hyperbilirubinemia
History of Atrial Fibrillation
History of Hypertension
History of Hyperlipidemia
History of Generalized Anxiety Disorder
Condition: Fair
Diet: Low Cholesterol
Activity: As tolerated
Blood Work: CMP in one week with fractionated bilirubin.
Referrals:
Alton Mota MD [Active, Urology]
Referral Note: CALL DR JAIMES OR BRIANDA RHODES FOR FOLLOW UP [phone]
Isaac Bowman DO, Resident [Family Practice Resident Year2, General] - in less than 1 week
Prescriptions:
New
phenazopyridine 200 mg Tablet
200 mg PO TID 3 Days Qty: 9 0RF
Continued
atorvastatin 10 mg Tablet
10 mg PO DAILY
amlodipine 5 mg Tablet
5 mg PO DAILY
estradiol 0.01 % (0.1 mg/gram) Cream
1 appful VAGINAL Q98H
buspirone 10 mg tablet
10 mg PO TID Qty: 0 0RF
metoprolol succinate 25 mg Tablet Extended Release 24 Hr
25 mg PO DAILY Qty: 30 2RF
Eliquis 5 mg Tablet
5 mg PO BID Qty: 60 3RF
Discharge Orders:
Discharge Patient (As Directed); Ordered 03/17/25
Ordered By: Isaac Bowman
Discharge Date and Time
Discharge Date/Time: 03/17/25 18:00
Print Language: SALVADOREAN

Documented by User: Alyssa Boone MD 03/18/25 08:17
Discharge Summary
Discharge Data
Date of Admission: 03/16/25
Date of Discharge: 03/18/25
Discharge Plan
-
Patient Disposition: Home (Routine Discharge)
Discharge Diagnosis/Procedures: *Bladder Discomfort
*Recent Multidrug Resistant Urinary Tract Infection
*Non-obstructing Nephrolithiasis
*Hyperbilirubinemia
History of Atrial Fibrillation
History of Hypertension
History of Hyperlipidemia
History of Generalized Anxiety Disorder
Condition: Fair
Diet: Low Cholesterol
Activity: As tolerated
Blood Work: CMP in one week with fractionated bilirubin.
Referrals:
Alton Mota MD [Active, Urology]
Referral Note: CALL DR JAIMES OR BRIANDA RHODES FOR FOLLOW UP [phone]
Isaac Bowman DO, Resident [Family Practice Resident Year2, General] - in less than 1 week
Prescriptions:
New
phenazopyridine 200 mg Tablet
200 mg PO TID 3 Days Qty: 9 0RF
Continued
atorvastatin 10 mg Tablet
10 mg PO DAILY
amlodipine 5 mg Tablet
5 mg PO DAILY
estradiol 0.01 % (0.1 mg/gram) Cream
1 appful VAGINAL Q98H
buspirone 10 mg tablet
10 mg PO TID Qty: 0 0RF
metoprolol succinate 25 mg Tablet Extended Release 24 Hr
25 mg PO DAILY Qty: 30 2RF
Eliquis 5 mg Tablet
5 mg PO BID Qty: 60 3RF
Discharge Orders:
Discharge Patient (As Directed); Ordered 03/17/25
Ordered By: Isaac Bowman
Discharge Date and Time
Discharge Date/Time: 03/17/25 18:00
Print Language: SALVADOREAN
--- NOTE | 2025-03-17 16:35 | W.PN.URO.CBU ---
Today's Communication / Plan
-
OK FOR D/C
Assessment / Plan
-
PT WITH SXS BUT U.A AND CT SCAN APPEAR THAT INFECTION GONE AGREE WITH D/C RETURN IF FEVER CHILLS FOLLOW UP AT OFFICE CONTINUE SUPPRESSION
Diagnosis
-
Date of Service: March 17, 2025
-
Patient Diagnosis:MDRO WITH SXS OF PRESSURE AND FLANK PAINBUT NEG U/A WBC WNL AFEBRILE NEG CT SCAN
Post Op Day:
Subjective
-
FREQUENCY DYSURIA GETTING BETTER
Objective
-
Vital Signs
Temp Pulse Resp BP Pulse Ox
98.1 F 73 18 149/86 97
03/17/25 14:47 03/17/25 14:47 03/17/25 14:47 03/17/25 14:47 03/17/25 15:18
Laboratory Results
03/17/25 13:48
03/17/25 13:48
Review of Systems
-
: Dysuria and Flank Pain
Physical Exam
-
General - well developed, well nourished, no acute distressNON TOXIC
Chest - clear bilaterally
Abdomen - soft, non-tender, positive bowel sounds, no CVAT, no incisional pain or distention
Genitalia - normal
Rectal - normal
Skin - warm & dry with no rash
Neuro - AOx3, no motor deficits
Extremities - no clubbing, no cyanosis, no edema
Incision - clean, dry
Dressing - clean, dry, intact
Care Review
Data Reviewed
Discussed with: Hospitalist and Nursing
CT Scan: Image Pers Reviewed
== END 2025-03-17 18:00 | disposition home or self-care (01) | DRG 690 ==
LOC: 4 EAST ACU 19:32
PROVIDERS: Physician Assistant Medical; ADMITTING PHYSICIAN Hospitalist; ATTENDING PHYSICIAN General Practice; CONSULT PHYSICIAN Specialist; EMERGENCY PHYSICIAN Emergency Medicine; OTHER PHYSICIAN Internal Medicine Infectious Disease
DX: N39.0 Urinary tract infection, site not specified (principal); Z16.24 Resistance to multiple antibiotics; R17 Unspecified jaundice; Z87.442 Personal history of urinary calculi; N20.0 Calculus of kidney; I10 Essential (primary) hypertension; F41.1 Generalized anxiety disorder; I48.91 Unspecified atrial fibrillation; Z79.01 Long term (current) use of anticoagulants; E21.3 Hyperparathyroidism, unspecified; F41.9 Anxiety disorder, unspecified; F32.A Depression, unspecified; Z90.710 Acquired absence of both cervix and uterus; Z88.5 Allergy status to narcotic agent; Z79.899 Other long term (current) drug therapy; Z87.440 Personal history of urinary (tract) infections; E78.00 Pure hypercholesterolemia, unspecified
CPT/HCPCS: 74176; 80048; 80053; 81003; 81015; 82248; 83605; 85025; 87040; 87086; 96365; 96366; 99285